=== PATIENT | female | born 2005 | race Caucasian/White ===

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

== ENCOUNTER 2024-03-02 14:45 | Emergency (ER) | payer OTHER, MEDICAID, SELFPAY ==
[2024-03-02 14:50] VITALS: BP 119/69; PULSE 104; RESP 20; TEMP 36.8; O2SAT 100
--- NOTE | 2024-03-02 14:56 | US_ITS ---
WS: [id number] US transvaginal 06340 HISTORY: pain/bleeding; poss preg; r/o torsion vs ectopic COMPARISON: None available. Uterus: 6.0 cm x 3.7 cm x 3.5 cm. Normal size retroverted uterus. No fibroid or mass identified. Endometrium: 0.4 cm. Normal. Right ovary: 3.4 cm x 2.2 cm x 2.3 cm. Normal size and vascularity, no cystic or solid masses. Multip le small follicles. Left ovary: 2.6 cm x 2.2 cm x 1.9 cm. Normal size and vascularity, no cystic or solid masses. Multipl e small follicles. No free fluid in the cul-de-sac. US/US transvaginal 05730 IMPRESSION: 1. No intrauterine gestation. 2. No adnexal mass or significant free fluid in the pelvis. 3. If there is a positive beta hCG ectopic is not excluded. 4. No ovarian torsion.
[2024-03-02 16:26] LABS: Basophils % 0.3 %; Eosinophils # 0.1 10^3/uL (0.0-0.8); Eosinophils % 1.6 %; Hematocrit 37.2 % (36-47); Lymphocytes # 0.9 10^3/uL (1.5-6.5); Mean Corpuscular HGB Conc 33.3 g/dL (30-55); Mean Corpuscular Hemoglobin 26.2 pg (27-33); Mean Corpuscular Volume 78.5 fl (85-98); Mean Platelet Volume 10.5 fL (7.4-10.4); Monocytes # 0.5 10^3/uL (0.2-0.9); Monocytes % 7.5 %; Neutrophils # 4.79 10^3/uL (1.8-8.0); Neutrophils % 76.4 %; Nucleated Red Blood Cells % 0 %; Platelet Count 297 10^3/cmm (157-399); Red Blood Count 4.74 10^6/uL (3.85-5.65); Red Cell Distribution Width 13.6 % (12.1-15.1); White Blood Count 6.27 10^3/uL (4.5-13.0)
[2024-03-02 16:57] LABS: Alanine Aminotransferase 9 U/L (0-33); Albumin Level 4.4 g/dL (3.5-5.2); Alkaline Phosphatase 59 U/L (35-105); Anion Gap 16.3 (5-19); Aspartate Amino Transferase 15 U/L (0-32); Blood Urea Nitrogen 9 mg/dL (6-20); Calcium 8.9 mg/dL (8.5-10.5); Carbon Dioxide 23 mmol/L (22-29); Chloride 106 mmol/L (98-107); Globulin 2.9 g/dL (1.3-4.6); Glomerular Filtration Rate 92.4 mL/min (90-130); Glucose 91 mg/dL (65-115); Osmolality Calculated 290 mOsm/kg (285-295); Potassium 4.3 mmol/L (3.5-5.1); Sodium 141 mmol/L (136-145); Total Bilirubin 0.5 mg/dL (0.15-1.2); Total Protein 7.3 g/dL (6.6-8.7)
[2024-03-02 17:19] VITALS: BP 116/68; PULSE 53; O2SAT 99
--- NOTE | 2024-03-02 17:25 | W.ED.FEMALGU ---
HPI - Female Genitourinary General: Chief complaint: Urogenital-Female Stated complaint: AVD Pain, vaginal bleeding, possible Time Seen by Provider: 03/02/24 16:58 History of Present Illness: Patient says that earlier today she developed severe lower abdominal cramping. She was seen in an urgent care and they told her to come to the emergency room to rule out ovarian torsion and ectopic . She describes diffuse lower abdominal cramping most prominent centrally. She says she started having some bleeding today and she was supposed to start her period tomorrow. She had some nausea but no vomiting. She said the pain was very severe and had doubled her over and was making her cry. She still having some pain. Review of Systems Narrative: Constitutional symptoms: Negative except as documented in HPI. Skin symptoms: Negative except as documented in HPI. Eye symptoms: Negative except as documented in HPI. ENMT symptoms: Negative except as documented in HPI. Respiratory symptoms: Negative except as documented in HPI. Cardiovascular symptoms: Negative except as documented in HPI. Gastrointestinal symptoms: Negative except as documented in HPI. Genitourinary symptoms: Negative except as documented in HPI. Musculoskeletal symptoms: Negative except as documented in HPI. Neurologic symptoms: Negative except as documented in HPI. Psychiatric symptoms: Negative except as documented in HPI. Endocrine symptoms: Negative except as documented in HPI. Physical Exam Narrative: EXAM NARRATIVE: General: Alert, no acute distress. Skin: warm and dry Head: Normocephalic Neck: Trachea midline Eye: Extraocular movements are intact. Ears, nose, mouth and throat: Oral mucosa moist Respiratory: Respirations are non-labored Musculoskeletal: Normal ROM Gastrointestinal: Complains of some diffuse low abdominal pain. Appears nonfocal. Neurological: Alert and oriented, No focal neurological deficit observed. Psychiatric: Cooperative, appropriate mood & affect. Course Vital Signs: Vital signs: Vital Signs Temperature 98.2 F 03/02/24 14:50 Pulse Rate 51 L 03/02/24 18:00 Respiratory Rate 16 03/02/24 17:30 Blood Pressure 116/68 03/02/24 17:19 Pulse Oximetry 98 03/02/24 18:00 Oxygen Delivery Me thod Room Air 03/02/24 18:00 MDM - Female Medical Decision Making Medical decision making: Differential diagnosis including but not limited to and based on the above HPI, review of systems and physical exam: Patient was sent with concern for ovarian torsion and ectopic . test was ordered. Ultrasound was ordered. Basic lab work and urinalysis were ordered. Orders placed to evaluate differential diagnosis based on the above differential, HPI and physical exam Lab Review: Laboratory results were reviewed and interpreted by myself the emergency room physician. Lab work is unremarkable. White count is 6. Hemoglobin is 12. BUN/creatinine are 9 and 0.8. Serum test is negative. Urinalysis is pending at the time of discharge. Ultrasound of the pelvis. Transvaginal. No no intrauterine gestation. No adnexal or significant free fluid in the pelvis. This was reviewed by the radiologist and interpreted by the radiologist. I reviewed the radiology report. I reviewed the patient's medical record. Reexamination: Mom became angry about the amount of time they had spent here. When I went to ask her what was wrong, she said she knew it was just menstrual cramps and she has been here all day and she wants to leave. I discussed that I was waiting for urinalysis. She says she wants to leave and so I am discharging them prior to urinalysis being resulted. Assessment and plan: Dysmenorrhea. - Discharged home - Discussed plan with patient. Answered any questions. - Evaluation and treatment of this problem were appropriate in the emergency setting. Lab Data 03/02/24 16:17 03/02/24 16:17 Radiology Impressions Transvaginal US 03/02/24 14:56 IMPRESSION: 1. No intrauterine gestation. 2. No adnexal mass or significant free fluid in the pelvis. 3. If there is a positive beta hCG ectopic is not excluded. 4. No ovarian torsion. Laboratory Results WBC 6.27 10^3/uL (4.5-13.0) 03/02/24 16:17 RBC 4.74 10^6/uL (3.85-5.65) 03/02/24 16:17 Hgb 12.40 g/dL (12.4-14.8) 03/02/24 16:17 Hct 37.2 % (36-47) 03/02/24 16:17 MCV 78.5 fl (85-98) L 03/02/24 16:17 MCH 26.2 pg (27-33) L 03/02/24 16:17 MCHC 33.3 g/dL (30-55) 03/02/24 16:17 RDW 13.6 % (12.1-15.1) 03/02/24 16:17 Plt Count 297 10^3/cmm (157-399) 03/02/24 16:17 MPV 10.5 fL (7.4-10.4) H 03/02/24 16:17 Neut % (Auto) 76.4 % 03/02/24 16:17 Lymph % (Auto) 14.0 % 03/02/24 16:17 [place] % (Auto) 7.5 % 03/02/24 16:17 Eos % (Auto) 1.6 % 03/02/24 16:17 Baso % (Auto) 0.3 % 03/02/24 16:17 Neut # (Auto) 4.79 10^3/uL (1.8-8.0) 03/02/24 16:17 Lymph # (Auto) 0.9 10^3/uL (1.5-6.5) L 03/02/24 16:17 [place] # (Auto) 0.5 10^3/uL (0.2-0.9) 03/02/24 16:17 Eos # (Auto) 0.1 10^3/uL (0.0-0.8) 03/02/24 16:17 Baso # (Auto) 0.0 10^3/uL (0.0-0.1) 03/02/24 16:17 Nucleated RBC % (auto) 0 % 03/02/24 16:17 Nucleated RBCs # 0.0 /100WBC 03/02/24 16:17 Sodium 141 mmol/L (136-145) 03/02/24 16:17 Potassium 4.3 mmol/L (3.5-5.1) 03/02/24 16:17 Chloride 106 mmol/L (98-107) 03/02/24 16:17 Carbon Dioxide 23 mmol/L (22-29) 03/02/24 16:17 Anion Gap 16.3 (5-19) 03/02/24 16:17 BUN 9 mg/dL (6-20) 03/02/24 16:17 Creatinine 0.8 mg/dL (0.5-0.9) 03/02/24 16:17 GFR Calculation 92.4 mL/min (90-130) 03/02/24 16:17 Glucose 91 mg/dL (65-115) 03/02/24 16:17 Calculated Osmolality 290 mOsm/kg (285-295) 03/02/24 16:17 Calcium 8.9 mg/dL (8.5-10.5) 03/02/24 16:17 Total Bilirubin 0.5 mg/dL (0.15-1.2) 03/02/24 16:17 AST 15 U/L (0-32) 03/02/24 16:17 ALT 9 U/L (0-33) 03/02/24 16:17 Alkaline Phosphatase 59 U/L (35-105) 03/02/24 16:17 Total Protein 7.3 g/dL (6.6-8.7) 03/02/24 16:17 Albumin 4.4 g/dL (3.5-5.2) 03/02/24 16:17 Globulin 2.9 g/dL (1.3-4.6) 03/02/24 16:17 Ser , Semi-Qnt 1.00 mIU/mL 03/02/24 16:17 All radiology interpretation(s) finalized by discharge Discharge Plan Discharge Patient Disposition: Home Clinical Impression: Dysmenorrhea Condition: Stable Prescriptions: New ondansetron 8 mg tablet,disintegrating 8 mg PO .q6 PRN (Reason: nausea and vomiting) Qty: 14 0RF diclofenac sodium 50 mg tablet,delayed release (DR/EC) 50 mg PO Q12H Qty: 20 0RF Discharge Orders: Discharge ED (Routine); Ordered 03/02/24 Ordered By: Soco Cohen Referrals: Kassie Mosher MD [Primary Care Provider] - 4-7 days Discharge Diet: Usual diet Discharge Activity: Increase activity as tolerated Patient Instructions: Dysmenorrhea (ED), Abdominal Pain (ED) Activity Restrictions/Additional Instructions: Thank you for choosing [facility] for your healthcare needs today. Please realize this is an emergency room and that we are providing you with a medical screening exam and this may not be complete and all inclusive of all the testing and or work up that you may need to determine your ailment or severity of your illness. You have been screened and evaluated and felt safe for discharge. Health conditions do change or evolve sometimes and as such it is important that you follow up with your Primary Doctor to be re checked, 3-5 days is a general good time frame for follow up. You are always welcome to return to the ED for re assessment if your symptoms are worsening or you have new concerns Coding Level of Care Code ED Forest And Conservation Worker for Padmini Ortiz
[2024-03-02 17:30] VITALS: PULSE 50; RESP 16; O2SAT 99
[2024-03-02 18:00] VITALS: PULSE 51; O2SAT 98
[2024-03-02 18:33] LABS: Bilirubin Urine 1+ (Negative); Blood Urine 3+ (Negative); Glucose Urine UA Norm (Normal); Ketones Urine 1+ (Negative); Leukocyte Esterase Urine Negative (Negative); Nitrate Urine Negative (Negative); Protein Urine Trace (Negative); Urine Appearance Slightly Cloudy (CLEAR); Urine Color Dark Yellow (Yellow); Urobilinogen Urine 1 mg/dL (Negative); pH Urine 5 (5-7)
[2024-03-02 18:35] LABS: Add Urine Microscopic? YES; Bacteria Urine 1+ /hpf; Mucus Urine TRACE /hpf; Squamous Epithelial Cell Urine 0-4 /hpf (0-5); WBC Urine 0-4 /hpf (0-5)
[2024-03-02 18:36] LABS: Add Urine Culture? Yes; Amorphous Sediment Urine 2+ /hpf
== END 2024-03-02 18:32 | disposition home or self-care (01) ==
PROVIDERS: Physician Assistant; Emergency Provider Emergency Medicine; PCP Specialist
DX: N94.6 Dysmenorrhea, unspecified (principal)
CPT/HCPCS: 36415; 76830; 80053; 81001; 84702; 85025; 87086; 99284

== ENCOUNTER 2025-06-05 11:57 | Emergency (ER) | payer OTHER, MEDICAID, SELFPAY ==
[2025-06-05] VITALS (7 sets, daily range): BP systolic 112–126; BP diastolic 61–81; PULSE 56–80; RESP 19–20; TEMP 36.8; O2SAT 98–100; BMI 22.6
--- OUTSIDE RECORDS SUMMARY | 2025-06-05 12:02 | XMS_ITS | Encounter Summary ---
Author Organization [facility] Address [address] [place] [address] Care Team Providers Care Medical Biller/Coder Name Role Phone Geraldine Linares MD Primary Care Provider Encounter Details Date Type Department Care Team (Latest Contact Info) Description 10/23/2005 Outpatient Historical [facility] Medicine [place] [address] [phone] Shanthi Hi, TERRITORY ACCOUNT EXECUTIVE [address] [place] [phone] ACUTE PHARYNGITIS (Primary Dx) Social History Tobacco Use Types Packs/Day Years Used Date Smoking Tobacco: Never Assessed Comments Unknown Sex and Gender Information Value Date Recorded Sex Assigned at Not on file 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
--- OUTSIDE RECORDS SUMMARY | 2025-06-05 12:02 | XMS_ITS | Encounter Summary ---
Author Organization [facility] Address [address] [place] [address] Care Team Providers Care Crystal Mounter Name Role Phone Geraldine Linares MD Primary Care Provider Encounter Details Date Type Department Care Team (Latest Contact Info) Description 02/06/2006 Outpatient Historical [facility] [address] [place] [address] Shanthi Hi, OPHTHALMIC MEDICAL TECHNICIAN [address] [place] [phone] Superficial Injury NEC (Primary Dx) Social History Tobacco Use Types Packs/Day Years Used Date Smoking Tobacco: Never Assessed Comments Unknown Sex and Gender Information Value Date Recorded Sex Assigned at Not on file 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
--- OUTSIDE RECORDS SUMMARY | 2025-06-05 12:02 | XMS_ITS | Encounter Summary ---
Author Organization [facility] Address [address] [place] [address] Care Team Providers Care Foot Drill Operator Name Role Phone Geraldine Linares MD Primary Care Provider [phone] Encounter Details Date Type Department Care Team (Latest Contact Info) Description 2004 Outpatient Historical 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
--- OUTSIDE RECORDS SUMMARY | 2025-06-05 12:02 | XMS_ITS | Encounter Summary ---
Author Organization [facility] Address [address] [place] [address] Care Team Providers Care Donor Relations Coordinator Name Role Phone Geraldine Linares MD Primary Care Provider [phone] Encounter Details Date Type Department Care Team (Latest Contact Info) Description 2004 Outpatient Historical [facility] Medicine [place] [address] [phone] Arlette Bourne MD [address] [place] [address] ACUTE URI NOS (Primary Dx); TONGUE TIE Social History Tobacco Use Types Packs/Day Years Used Date Smoking Tobacco: Never Assessed Comments Unknown Sex and Gender Information Value Date Recorded Sex Assigned at Not on file Legal Sex Female 3:17 AM PATHOLOGY SECRETARY Gender Identity Not on file Sexual Orientation Not on file documented as of this encounter Plan of Treatment Not on file documented as of this encounter Visit Diagnoses Diagnosis Acute upper respiratory infections of unspecified site- Primary Tongue tie documented in this encounter Care Teams Donor Relations Coordinator Relationship Specialty Start Date End Date Geraldine Linares MD [address] [facility] [address] [place] [phone] PCP - General Family Practice 01/20/14 documented as of this encounter
--- OUTSIDE RECORDS SUMMARY | 2025-06-05 12:02 | XMS_ITS | Encounter Summary ---
Author Organization [facility] Address [address] [place] [address] Care Team Providers Care Building Construction Superintendent Name Role Phone Geraldine Linares MD Primary Care Provider [phone] Encounter Details Date Type Department Care Team (Latest Contact Info) Description 01/22/2007 Outpatient Historical [facility] [address] [place] [address] Shanthi Hi, CASE AIDE [address] [place] [phone] Other General Medical Examination for Administrative Purposes (Primary Dx) Social History Tobacco Use Types Packs/Day Years Used Date Smoking Tobacco: Never Assessed Comments Unknown Sex and Gender Information Value Date Recorded Sex Assigned at Not on file Legal Sex Female 3:17 AM P D DRIVER Gender Identity Not on file Sexual Orientation Not on file documented as of this encounter Plan of Treatment Not on file documented as of this encounter Visit Diagnoses Diagnosis Other general medical examination for administrative purposes- Primary documented in this encounter Care Teams Building Construction Superintendent Relationship Specialty Start Date End Date Geraldine Linares MD [address] [facility] [address] [place] [phone] PCP - General Family Practice 01/20/14 documented as of this encounter
--- OUTSIDE RECORDS SUMMARY | 2025-06-05 12:02 | XMS_ITS | Encounter Summary ---
Author Organization [facility] Address [address] [place] [address] Care Team Providers Care Director Of Enterprise Strategy Name Role Phone Geraldine Linares MD Primary Care Provider Encounter Details Date Type Department Care Team (Latest Contact Info) Description 05/29/2005 Outpatient Historical [facility] Medicine [place] [address] [phone] Shanthi Hi, RISK COMPLIANCE ANALYST [address] [place] [address] OTITIS MEDIA NOS (Primary Dx) Social History Tobacco Use Types Packs/Day Years Used Date Smoking Tobacco: Never Assessed Comments Unknown Sex and Gender Information Value Date Recorded Sex Assigned at Not on file Legal Sex Female 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
--- OUTSIDE RECORDS SUMMARY | 2025-06-05 12:02 | XMS_ITS | Clinical Summary ---
Author Organization [facility] Address [address] [facility] Attn: Epic Prelude ADT ROBERT LOPEZ [address] Care Team Providers Care Maternal Child Nurse Name Role Phone Arnoldo Avery MD Primary Care Provider [phone] Allergies No known active allergies Medications ondansetron (ZOFRAN ODT) 4 mg Tablet, Rapid DissolveIndicat ions:Nausea Take 1 Tablet (4 mg) by mouth every 8 hours as needed for Nausea/Emesi s. Dissolve tablet on top of tongue, then swallow with saliva. 20 Tablet 05/03/20 25 Active ferrous sulfate 325 mg (65 mg iron) tabletIndicatio ns:Iron deficiency anemia, unspecified iron deficiency anemia type Take 1 Tablet (325 mg) by mouth daily. 90 Tablet 1 05/05/20 25 Active FLUoxetine (PROzac) 20 mg capsuleIndicati ons:Moderate episode of recurrent major depressive disorder (CMS/HCC),Anxie ty Take 1 Capsule (20 mg) by mouth daily. 30 Capsule 1 05/19/20 25 Active FLUoxetine (PROzac) 10 mg capsuleIndicati ons:Moderate episode of recurrent major depressive disorder (CMS/HCC),Anxie ty Take 1 Capsule (10 mg) by mouth daily. 30 Capsule 1 05/03/20 25 025 Discontinued Active Problems Problem Noted Date Diagnosed Date Declined influenza vaccine 07/24/2024 Environmental tobacco smoke exposure 08/09/2015 Constipation 05/23/2012 ETD (eustachian tube dysfunction) 12/05/2010 Well child visit Encounters Date Type Department Care Team Description 06/04/2025 Telephone [facility] [address] [place] [address] Arnoldo Avery MD Patient Communication 05/19/2025 3:00 PM CDT Office Visit [address] [place] [address] Meron Jones FNP Iron deficiency anemia, unspecified iron deficiency anemia type (Primary Dx); Moderate episode of recurrent major depressive disorder (CMS/HCC); Anxiety 05/19/2025 11:56 AM CDT - 05/19/2025 11:59 PM CDT Hospital Encounter [facility] [address] [place] [phone] Meron Jones FNP Discharge Disposition: Home or Self Care 05/12/2025 External Device Data STL ABSTRACTION Provider, Abstract 05/11/2025 External Device Data STL ABSTRACTION Provider, Abstract 05/04/2025 Results Follow-Up [address] [place] [address] Meron Jones FNP COMPREHENSIVE METABOLIC PANEL, IRON, TIBC, AND PERCENT SATURATION, CBC WITH DIFFERENTIAL, Additional followed-up results: 7 05/03/2025 3:00 PM CDT Office Visit [address] [place] [phone] Meron Jones FNP Moderate episode of recurrent major depressive disorder (CMS/HCC) (Primary Dx); Anxiety; Screen for STD (sexually transmitted disease); Mood disorder; History of Helicobacter pylori infection; Nausea; Syncope, unspecified syncope type; Abdominal pain, acute, left lower quadrant; Dysfunctional uterine bleeding 04/28/2025 External Device Data STL ABSTRACTION Provider, Abstract 03/30/2025 External Device Data STL ABSTRACTION Provider, Abstract 03/23/2025 External Device Data STL ABSTRACTION Provider, Abstract from Last 3 Months Immunizations Immunization Administration Dates Next Due (ADACEL/BOOSTRIX)(10 YR UP) TDAP VACCINE, 0.5ML, IM 06/25/2017 (GARDASIL 9)(9-45 YRS) HUMAN PAPILLOMAVIRUS VACCINE, TYPES 6, 11, 16, 18, 31, 33, 45, 52, 58, NONAVALENT (9VHPV), 2 OR 3 DOSE, IM 05/06/2019,10/09/2018 (INFANRIX)(6 WKS-6 YRS) DIPT HERIA, TETANUS TOXOIDS, AND ACCELLULAR PERTUSSIS VACCINE (DTAP), 0.5 ML IM 11/22/2009 (M-M-R II/PRIORIX)(12 MO UP) MEASLES, MUMPS AND RUBELLA VIRUS VACCINE, 0.5 ML IM/SUBCUT 11/22/2009 (MENQUADFI)(2 YRS UP) MENING OCOCCAL POLYSACCHARIDE VACCINE A,C,Y,W-135, TT CONJUGATE (PF) 10 MCG/0.5 ML IM SOLUTION 09/21/2022 (MENVEO)(1 VIAL/2 VIAL)(10-5 5 YRS/2 MOS-55 YRS) MENINGOCOCCAL ACYW OLIGOSACCHARIDE CONJUGATE VACCINE, (PF) IM 06/25/2017 (PEDIARIX)(6 WKS-6 YRS) DIPT HERIA, TETANUS TOXOIDS, ACELLULAR PERTUSSIS, HEPATITIS B, AND INACTIVATED POLIOVIRUS VACCINE (RASZ-TDZD-OLT), 0.5ML, IM 06/12/2005,04/04/2005,01/12/2005 (PROQUAD)(12 MOS-12 YRS)EDITH LES, MUMPS, RUBELLA, AND VARICELLA VIRUS VACCINE. 0.5 ML, SUBCUT 06/25/2017,12/06/2005 (RECOMBIVAX HB/ENGERIX-B)(0- 19 YRS) HEPATITIS B VACCINE 5 MCG/0.5 ML OR 10 MCG/0.5 ML PED OR ADOL 3 DOSE (PF), IM 06/25/2017 (VARIVAX)(12 MOS UP)VARICELL A VIRUS VACCINE (PF) 0.5 ML, SUB CUT 11/22/2009 DTaP Hep B IPV Combined Vaccine IM VFC 5,04/04/2005,01/12/2005 DTaP Vaccine < 7 YO IM VFC 05/12/2009 Dt Dtp Dtap Vaccine 04/04/2005,01/12/2005 HIB, Unspecified Formulation 06/12/2005,04/04/20 05,01/12/2005 Hemophilus influenza b vacci ne (Hib), HbOC conjugate (4 dose schedule), for intramuscular use 11/22/2009 Hepatitis B Vaccine 06/25/2017,04/04/2005,2004 Hib PRP-T Vaccine IM 4 Dose VFC 06/12/2005,04/04,01/12/2005 IPV/OPV 04/04/2005,01/12/2005 MMRV Vaccine SQ VFC 12/06/2005 Meningococcal ACWY Vaccine, Unspecified Formulation 06/25/2017 Pneumococcal 7-valent Conjug ate Vaccine IM VFC 12/06/2005,06/12/2005,04/04/2005,12/23 Pneumococcal 7-valent conjug ate vaccine IM 12/06/2005,06/12/2005,04/04/2005,12/23 Poliovirus IPV VFC 05/12/2009 Skin Test TB 12/08/2024 Tdap Vaccine > 7 Yo IM SCHIP 06/25/2017 Family History Medical History Relation Name Comments Healthy Father Gratn Durham Colon Cancer Maternal Grandfather Eduardo Checo Healthy Maternal Grandfather Eduardo Checo High Cholesterol Maternal Grandfather Eduardo Checo Healthy Maternal Grandmother Azalia Nair High Cholesterol Maternal Grandmother Azalia Nair Depression Mother Ankur Bleckley Healthy Mother Ankur Durham Heart Disease Mother Ankur [place] Stroke Mother Ankur Durham Colon Cancer Other ggm Diabetes Paternal Grandfather Jayce Durham Healthy Paternal Grandfather Jayce Durham High Cholesterol Paternal Grandfather Jayce Durham Healthy Paternal Grandmother Lilian Durham High Cholesterol Paternal Grandmother Lilian Durham Anemia Sister Jayna Durham Breast Cancer Neg Hx Relation Name Status Comments Father Grant Durham Alive Maternal Grandfather Eduardo Checo Alive Maternal Grandmother Azalia Nair Alive Mother Ankur Durham Alive Other ggm Paternal Grandfather Jayce Durham Alive Paternal Grandmother Lilian Durham Alive Sister Jayna Durham Alive Social History Tobacco Use Types Packs/Day Years Used Date Smoking Tobacco: Never Passive Smoke Exposure: Never Smokeless Tobacco: Never Tobacco Cessation:Counseling Given: Yes Alcohol Use Standard Drinks/Week Comments Never 0 (1 standard drink = 0.6 oz pur e alcohol) Feeling Safe Answer Date Recorded Are you in a relationship wi th someone who hurts you emotionally and/or physically? 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 Gender Identity Female 06/04/2025 11:50 AM CDT Sexual Orientation Not on file Last Filed Vital Signs Vital Sign Reading Time Taken Comments Blood Pressure 102/60 05/19/2025 3:05 PM CDT Pulse 70 05/19/2025 3:05 PM CDT Temperature 36.6 C (97.9 F) 05/19/2025 3:05 PM CDT Respiratory Rate 18 05/19/2025 3:05 PM CDT Oxygen Saturation 100% 05/19/2025 3:05 PM CDT Inhaled Oxygen Concentration - - Weight 66.7 kg (147 lb) 05/19/2025 3:05 PM CDT Height 167.6 cm (5' 6 ) 05/19/2025 3:05 PM CDT Body Mass Index 23.73 05/19/2025 3:05 PM CDT Plan of Treatment Upcoming Encounters Date Type Department Care Team (Late st Contact Info) Description 06/09/2025 2:40 PM CDT Office Visit [address] [place] [phone] Meron Jones FNP [address] [place] [address] 11/19/2025 3:40 PM 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 Office Visit [address] [place] [phone] Meron Jones FNP [address] [place] [phone] 05/03/2026 3:00 PM CDT Office Visit [address] [place] [phone] Meron Jones FNP [address] [place] [address] Health Maintenance Due Date Last Done Comments INFLUENZA VACCINE (#1) 2025 CHLAMYDIA SCREENING (ANNUAL) 11-24 YEARS 05/03/2026 05/03/2025, 10/12/2024, 05/15/2022 DTAP/TDAP/TD VACCINES (8 - T d or Tdap) 06/25/2027 06/25/2017, 06/25/2017, 11/22/2009, Additional history exists HEPATITIS B VACCINES Completed 06/25/2017, 06/25/2017, 06/12/2005, Additional history exists HPV VACCINES Completed 05/06/2019, 10/09/2018 Procedures Procedure Name Priority Date/Time Associated Diagnosis Comments US PELVIC TRANSVAGINAL Routine 05/19/2025 1:09 PM CDT Abdominal pain, acute, left lower quadrant Dysfunctional uterine bleeding HELICOBACTER PYLORI ANTIGEN, STOOL Routine 05/11/2025 4:04 PM CDT History of Helicobacter pylori infection HIV DETECTION W/REFLX CONFIRMATION Routine 05/03/2025 3:25 PM CDT Screen for STD (sexually transmitted disease) SYPHILIS SEROLOGY W/REFLEX Routine 05/03/2025 3:25 PM CDT Screen for STD (sexually transmitted disease) TSH Routine 05/03/2025 3:25 PM CDT Mood disorder CBC WITH DIFFERENTIAL Stat 05/03/2025 3:25 PM CDT Syncope, unspecified syncope type IRON, TIBC, AND PERCENT SATURATION Routine 05/03/2025 3:25 PM CDT Syncope, unspecified syncope type COMPREHENSIVE METABOLIC PANEL Routine 05/03/2025 3:25 PM CDT Syncope, unspecified syncope type HSV TYPE 1 AND 2 IGG ANTIBODY Routine 05/03/2025 3:25 PM CDT Screen for STD (sexually transmitted disease) VAGINOSIS/VAGINITIS PANEL PLUS Routine 05/03/2025 3:25 PM CDT Screen for STD (sexually transmitted disease) from Last 3 Months Results * US PELVIC TRANSVAGINAL (05/19/2025 1:09 PM CDT) Anatomical Region Laterality Modality Pelvis Ultrasound 05/19/2025 1:09 PM CDT Impressions 05/19/2025 11:21 PM CDT IMPRESSION: Please see below. Exam: US PELVIC TRANSVAGINAL Date/Time of Exam: 05/19/2025 1:09 PM Reason For Exam: See Diagnosis. Diagnosis: Abdominal pain, acute, left lower quadrant; Dysfunctional uterine bleeding. Comparison: None Findings: The uterus is 8.5 x 5.4 x 5.4 cm. No uterine mass. The endometrium is 5.3 mm. Small amount of free fluid in the cul-de-sac. Right ovary is 3.6 x 2.1 x 2.7 cm and demonstrates several peripheral follicles. The left ovary is 3.35 x 1.6 x 3.0 cm and contains several peripheral follicles and a complex predominantly cystic lesion measuring 2.5 x 1.4 x 2.6 cm. IMPRESSION:. 1. Complex septated cystic left ovarian lesion measuring 2.5 x 1.4 x 2.6 cm. 2. Bilateral peripheral ovarian follicles raising the possibility of polycystic ovarian syndrome. Narrative Procedure Note Lobito Rios MD - 05/19/2025 IMPRESSION: Please see below. Exam: US PELVIC TRANSVAGINAL Date/Time of Exam: 05/19/2025 1:09 PM Reason For Exam: See Diagnosis. Diagnosis: Abdominal pain, acute, left lower quadrant; Dysfunctional uterine bleeding. Comparison: None Findings: The uterus is 8.5 x 5.4 x 5.4 cm. No uterine mass. The endometrium is 5.3 mm. Small amount of free fluid in the cul-de-sac. Right ovary is 3.6 x 2.1 x 2.7 cm and demonstrates several peripheral follicles. The left ovary is 3.35 x 1.6 x 3.0 cm and contains several peripheral follicles and a complex predominantly cystic lesion measuring 2.5 x 1.4 x 2.6 cm. IMPRESSION:. 1. Complex septated cystic left ovarian lesion measuring 2.5 x 1.4 x 2.6 cm. 2. Bilateral peripheral ovarian follicles raising the possibility of polycystic ovarian syndrome. Result [facility] Meron Jones [facility] US ORDERABLES Final Re sult * HELICOBACTER PYLORI ANTIGEN, STOOL (05/11/2025 4:04 PM CDT) H. PYLORI AG, STOOL SEE NOTE [facility] [place] Comment: HELICOBACTER PYLORI AG, EIA, STOOL Micro Number: [id number] Test Status: Final Specimen Source: Stool Specimen Quality: Adequate H.pylori Ag: Not Detected Antimicrobials, proton pump inhibitors, and bismuth preparations inhibit H. pylori and ingestion up to two weeks prior to testing may cause false negative results. If clinically indicated the test should be repeated on a new specimen obtained two weeks after discontinuing treatment. Reference Range: Not Detected FASTING:UNKNOWN FASTING: UNKNOWN Test Performed at: [facility] [place] [address] [place] [address] [facility] Stool STOOL SPECIMEN / Unknown 05/11/2025 4:04 PM CDT 05/12/2025 3:10 AM CDT Result [facility] Meron Jones [facility] BODY FLUIDS AND STOOLS F inal Result [facility] [phone] [facility] [place] [address] [place] [address] * VAGINOSIS/VAGINITIS PANEL PLUS (05/03/2025 3:25 PM CDT) BACTERIAL VAGINOSIS NEGATIVE NEGATIVE [facility] LAURA SPECIES NOT DETECTED NOT DETECTED [facility] [place] LAURA GLABRATA NOT DETECTED NOT DETECTED [facility] Comment: Laura species C. albicans, C. tropicalis, C. parapsilosis, and/or C. dubliniensis can be detected, but not differentiated, in the Laura spp. result. TRICHOMONAS VAGINALIS (TV), TMA NOT DETECTED NOT DETECTED [facility] CHLAMYDIA TRACHOMATIS RNA, TMA, UROGENITAL NOT DETECTED NOT DETECTED [facility] NEISSERIA GONORRHOEAE RNA, TMA, UROGENITAL NOT DETECTED NOT DETECTED [facility] Comment: For additional information, please refer to https://education.[employer]/faq/KXE890 (This link is being provided for information/ educational purposes only.) Test Performed at: [facility] [place] [address] [place] [address] Janki Sanches MD Genital SPECIMEN FROM VAGINA / Unknown 05/03/2025 3:25 PM CDT 05/04/2025 3:55 AM CDT Meron ABDALLA MICROBIOLOGY - GENERAL O RDERABLES Final Result Performing Organization Address City/[facility]/ZIP Co de Phone Number [facility] [phone] [facility] [address] [facility] [place] [address] * SYPHILIS SEROLOGY W/REFLEX (05/03/2025 3:25 PM CDT) T PALLIDUM ANTIBODIES NEGATIVE NEGATIVE [facility] Comment: No antibodies to T. pallidum (the agent causing syphilis) were detected in the specimen. This result, however, does not exclude very recent T. pallidum infection; testing of a second specimen, collected 2-4 weeks after this specimen, is recommended if the index of suspicion for recent infection is high. Test Performed at: [facility] [address] [place] [address] Ceasar Rodriguez Blood 05/03/2025 3:25 PM CDT 05/04/2025 4:04 AM CDT Meron ABDALLA CHEMISTRY ORDERABLES Fin al Result [facility] [phone] [facility] [address] [place] [address] * HIV DETECTION W/REFLX CONFIRMATION (05/03/2025 3:25 PM CDT) QUEST RESULT [facility] Comment: Quest component Name and Code: HIV FINAL INTERPRETATION [[id number]] HIV Negative HIV-1 antigen and HIV-1/HIV-2 antibodies were not detected. There is no laboratory evidence of HIV infection. HIV-1/2 AG AND AB SCREEN NON-REACT JOSE NON-REACT JOSE [facility] Comment: Test Performed at: [facility] [address] [place] [phone] Janki Sanches MD Blood 05/03/2025 3:25 PM CDT 05/04/2025 4:04 [address] Meron Jones [facility] CHEMISTRY ORDERABLES Fin al Result [facility] [phone] [facility] [address] * HSV TYPE 1 AND 2 IGG ANTIBODY (05/03/2025 3:25 PM CDT) Pathologist [facility] HSV1 IGG <0.90 index [facility] HSV2 IGG <0.90 index [facility] Comment: Index Interpretation ----- <0.90 Negative 0.90-1.09 Equivocal >1.09 Positive This assay utilizes recombinant type-specific antigens to differentiate HSV-1 from HSV-2 infections. A positive result cannot distinguish between recent and past infection. If recent HSV infection is suspected but the results are negative or equivocal, the assay should be repeated in 4-6 weeks. The performance characteristics of the assay have not been established for pediatric populations, immunocompromised patients, or screening. For additional information, please refer to http://education.[employer]/faq/WZF319 (This link is being provided for informational/ educational purposes only.) Test Performed at: [facility] [address] [place] [address] [place] [address] aJnki Sanches MD Blood 05/03/2025 3:25 PM CDT 05/04/2025 4:[address] Meron Jones [facility] CHEMISTRY ORDERABLES Fin al Result Performing Organization Address City/[facility]/ZIP Co de Phone Number [facility] [phone] [facility] [address] [place] [address] * (ABNORMAL) IRON, TIBC, AND PERCENT SATURATION (05/03/2025 3:25 PM CDT) Pathologist [facility] IRON 33(L) 40 - 190 mcg/dL [facility] TIBC 365 250 - 450 mcg/dL (calc) [facility] IRON % SATURATION 9(L) 16 - 45 % (calc) [facility] Comment: Test Performed at: [facility] [address] [place] [address] Janki Sanches MD Blood 05/03/2025 3:25 PM CDT 05/04/2025 4:[address] [facility] CHEMISTRY ORDERABLES Fin al Result Performing Organization Address City/[facility]/ZIP Co de Phone Number [facility] [phone] [facility] [address] [place] [address] * (ABNORMAL) CBC WITH DIFFERENTIAL (05/03/2025 3:25 PM CDT) WBC 5.2 3.8 - 10.8 Thousand/u L [facility] RBC 4.93 3.80 - 5.10 Million/uL [facility] HEMOGLOBIN 12.8 11.7 - 15.5 g/dL [facility] HEMATOCRIT 40.5 35.0 - 45.0 % [facility] MCV 82.2 80.0 - 100.0 fL [facility] MCH 26.0(L) 27.0 - 33.0 pg [facility] MCHC 31.6(L) 32.0 - 36.0 g/dL [facility] Comment: For adults, a slight decrease in the calculated MCHC value (in the range of 30 to 32 g/dL) is most likely not clinically significant; however, it should be interpreted with caution in correlation with other red cell parameters and the patient's clinical condition. RDW 14.4 11.0 - 15.0 % [facility] PLATELETS 280 140 - 400 Thousand/u L [facility] MPV 11.7 7.5 - 12.5 fL [facility] NEUTROPHIL ABSOLUTE 3,650 1,500 - 7,800 cells/uL [facility] LYMPHOCYTE ABSOLUTE 1,118 850 - 3,900 cells/uL [facility] MONOCYTE ABSOLUTE 328 200 - 950 cells/uL [facility] EOSINOPHIL ABSOLUTE 62 15 - 500 cells/uL [facility] BASOPHILS ABSOLUTE 42 0 - 200 cells/uL [facility] NEUTROPHIL 70.2 % [facility] LYMPHOCYTES 21.5 % [facility] MONOCYTE 6.3 % [facility] EOSINOPHILS 1.2 % [facility] BASOPHILS 0.8 % [facility] Comment: Test Performed at: [facility] [address] [place] [phone] Janki Sanches MD Blood 05/03/2025 3:25 PM CDT 05/04/2025 4:04 AM CDT us Meron Jones [facility]IR[facility] [employer]ARM[employer] HEMATOLOGY ORDERABLES Fi nal Result [facility] [phone] [facility] [address] * TSH (05/03/2025 3:25 PM CDT) TSH 2.51 mIU/L [facility] Comment: Reference Range > or = 20 Years 0.40-4.50 Ranges First trimester 0.26-2.66 Second trimester 0.55-2.73 Third trimester 0.43-2.91 Test Performed at: [facility] [place] [address] [facility] [place] [address] Janki Sanches MD Blood 05/03/2025 3:25 PM CDT 05/04/2025 4:04 AM CDT Meron Jones DAIRY FARMER CHEMISTRY ORDERABLES Fin al Result [facility] [phone] [facility] [address] [facility] [place] [address] * (ABNORMAL) COMPREHENSIVE METABOLIC PANEL (05/03/2025 3:25 PM CDT) GLUCOSE 89 65 - 99 mg/dL [facility] Comment: Fasting reference interval BUN 6(L) 7 - 25 mg/dL [facility] CREATININE 0.76 0.50 - 0.96 mg/dL [facility] GFR 115 > OR = 60 mL/min/1.7 3m2 [facility] BUN/CREAT RATIO 8 6 - 22 (calc) [facility] SODIUM 137 135 - 146 mmol/L [facility] POTASSIUM 3.7 3.5 - 5.3 mmol/L [facility] CHLORIDE 104 98 - 110 mmol/L [facility] CO2 25 20 - 32 mmol/L [facility] CALCIUM 9.4 8.6 - 10.2 mg/dL [facility] TOTAL PROTEIN 7.4 6.1 - 8.1 g/dL [facility] ALBUMIN 4.9 3.6 - 5.1 g/dL [facility] GLOBULIN 2.5 1.9 - 3.7 g/dL (calc) [facility] ALBUMIN/GLOBULIN RATIO 2.0 1.0 - 2.5 (calc) [facility] BILIRUBIN TOTAL 0.6 0.2 - 1.2 mg/dL [facility] ALKALINE PHOSPHATASE 39 31 - 125 U/L [facility] AST 14 10 - 30 U/L [facility] ALT 9 6 - 29 U/L [facility] Comment: Test Performed at: [facility] [address] [address] Janki Sanches MD Blood 05/03/2025 3:25 PM CDT 05/04/2025 4:04 AM CDT Meron Jones DA[employer] FARM[employer] CHEMISTRY ORDERABLES Fin al Result [facility] [phone] [facility] [address] [address] [phone] from Last [address] [place] [address] [place] [address] [facility] [id number] [facility] [address] [place] [facility] [address] Care Teams Maternal Child Nurse Relationship Specialty Start Date End Date Arnoldo Avery MD [address] [phone] PCP - General Family Practice 04/05/23
--- OUTSIDE RECORDS SUMMARY | 2025-06-05 12:02 | XMS_ITS | Encounter Summary ---
Author Organization [facility] Address [address] [place] [address] Care Team Providers Care Electronic Maintenance Supervisor Name Role Phone Geraldine Linares MD Primary Care Provider Encounter Details Date Type Department Care Team (Latest Contact Info) Description 2004 Outpatient Historical [facility] Medicine [employer] [address] [phone] Arlette Bourne MD [address] [place] [address] Routine child health exam (Primary Dx); TONGUE TIE Social History Tobacco Use Types Packs/Day Years Used Date Smoking Tobacco: Never Assessed Comments Unknown Sex and Gender Information Value Date Recorded Sex Assigned at Not on file 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
--- OUTSIDE RECORDS SUMMARY | 2025-06-05 12:02 | XMS_ITS | Encounter Summary ---
Author Organization [facility] Address [address] [place] [address] Care Team Providers Care Trust Evaluation Supervisor Name Role Phone Geraldine Linares MD Primary Care Provider Encounter Details Date Type Department Care Team (Latest Contact Info) Description 11/07/2006 Outpatient Historical [facility] Medicine [place] [address] [phone] Shanthi Hi, HEAD OF MAINTENANCE [address] [place] [phone] Other Conjunctivitis (Primary Dx) Social History Tobacco Use Types Packs/Day Years Used Date Smoking Tobacco: Never Assessed Comments Unknown Sex and Gender Information Value Date Recorded Sex Assigned at Not on file 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
--- OUTSIDE RECORDS SUMMARY | 2025-06-05 12:02 | XMS_ITS | Encounter Summary ---
Author Organization [facility] Address [address] [place] [address] Care Team Providers Care Hardware Sales Assistant Name Role Phone Arnoldo Avery MD Primary Care Provider [phone] Encounter Details Date Type Department Care Team (Late st Contact Info) Description 10/14/2024 Results Follow-Up [facility] Emergency Medicine [address] [address] Miesha Wilkins, RN GC/CHLAMYDIA, UROGENITAL Social History Tobacco Use Types Packs/Day Years Used Date Smoking Tobacco: Never Passive Smoke Exposure: Never Smokeless Tobacco: Never Alcohol Use Standard Drinks/Week Comments Never 0 (1 standard drink = 0.6 oz pur e alcohol) Feeling Safe Answer Date Recorded Are you in a relationship wi th someone who hurts you emotionally and/or physically? 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 Gender Identity Female 06/04/2025 11:50 AM CDT Sexual Orientation Not on file documented as of this encounter Plan of Treatment Upcoming Encounters Date Type Department Care Team (Late Contact Info) Description 06/09/2025 2:40 PM CDT Office Visit [facility] [place] [address] [address] Meron Jones, [facility] [address] [address] 11/19/2025 3:40 PM SUPERVISOR FUR DRESSING Office Visit [facility] [address] [place] [address] Meron Jones, [facility] [address] [place] [address] 05/03/2026 3:00 PM CDT Office Visit [facility] [address] [place] [address] Meron Jones, [facility] [address] [place] [address] documented as of this encounter Visit Diagnoses Not on filedocumented in this encounter Additional Health Concerns Assessment Noted Time PHQ-9 Depression Total Score: 1 10/13/19 25 1:49 PM SUPERVISOR FUR DRESSING documented as of this encounter Care Teams Hardware Sales Assistant Relationship Specialty Start Date End Date Arnoldo Avery MD [address] [place] [address] PCP - General Family Practice 04/05/23 documented as of this encounter
--- OUTSIDE RECORDS SUMMARY | 2025-06-05 12:02 | XMS_ITS | Encounter Summary ---
Author Organization [facility] Address [address] [place] [address] Care Team Providers Care Motor Vehicle Representative Name Role Phone Geraldine Linares MD Primary Care Provider Encounter Details Date Type Department Care Team (Latest Contact Info) Description 04/10/2006 Outpatient [facility] [address] [place] [address] Shanthi Hi, CAREER DEVELOPMENT COUNSELOR [address] [place] [phone] Acute Upper Respiratory Infections of Unspecified Site (Primary Dx) Social History Tobacco Use Types Packs/Day Years Used Date Smoking Tobacco: Never Assessed Comments Unknown Sex and Gender Information Value Date Recorded Sex Assigned at Not on file Legal Sex Female 3:17 AM TIMBER 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
--- OUTSIDE RECORDS SUMMARY | 2025-06-05 12:02 | XMS_ITS | Clinical Summary ---
Author Organization [facility] Address [address] [place] [address] Care Team Providers Care Systems Technologist Name Role Phone Geraldine Linares MD Primary Care Provider Allergies No known active allergies Medications Polycarbophil Calcium (FIBER) Oral Chew Take by mouth. Active Active Problems Problem Noted Date Diagnosed Date Environmental tobacco smoke exposure 08/09/2015 Constipation 05/23/2012 ETD (eustachian tube dysfunction) 12/05/2010 Well child visit Immunizations Immunization Administration Dates Next Due (INFANRIX)(6 WKS-6 YRS) DIPT HERIA, TETANUS TOXOIDS, AND ACCELLULAR PERTUSSIS VACCINE (DTAP), 0.5 ML IM 11/22/2009 (M-M-R II/PRIORIX)(12 MO UP) MEASLES, MUMPS AND RUBELLA VIRUS VACCINE, 0.5 ML IM/SUBCUT 11/22/2009 (VARIVAX)(12 MOS UP)VARICELL A VIRUS VACCINE (PF) 0.5 ML, SUB CUT 11/22/2009 DTaP Vaccine < 7 YO IM VFC 05/12/2009 Dt Dtp Dtap Vaccine 04/04/2005,01/12/2005 HIB, Unspecified Formulation 04/04/2005,01/13/20 05 Hemophilus influenza b vacci ne (Hib), HbOC conjugate (4 dose schedule), for intramuscular use 11/22/2009 Hepatitis B Vaccine 04/04/2005,01/12/2005 IPV/OPV 04/04/2005,01/12/2005 Pneumococcal 7-valent conjugate vaccine IM 04/04,01/12/2005 Poliovirus IPV VFC 05/12/2009 Family History Medical History Relation Name Comments Healthy Father Healthy Maternal Grandfather Healthy Maternal Grandmother Healthy Mother Colon Cancer Other ggm Healthy Paternal Grandfather Healthy Paternal Grandmother Breast Cancer Neg Hx Relation Name Status Comments Father Alive Maternal Grandfather Alive Maternal Grandmother Alive Mother Alive Other ggm Paternal Grandfather Alive Paternal Grandmother Alive Social History Tobacco Use Types Packs/Day Years Used Date Smoking Tobacco: Never Assessed Comments Unknown Sex and Gender Information Value Date Recorded Sex Assigned at Not on file Legal Sex Female 3:17 AM ENGINEERING TECHNICAL ANALYST Gender Identity Not on file Sexual Orientation Not on file Occupation Industry Job Start Date Job End Date Not on file Not on file Not on file Not on file Last Filed Vital Signs Vital Sign Reading Time Taken Comments Blood Pressure 98/54 08/09/2015 3:15 PM ENGINEERING TECHNICAL ANALYST Pulse 84 08/09/2015 3:15 PM ENGINEERING TECHNICAL ANALYST Temperature 37.1 C (98.7 F) 08/09/2015 3:15 PM ENGINEERING TECHNICAL ANALYST Respiratory Rate 16 08/09/2015 3:15 PM ENGINEERING TECHNICAL ANALYST Oxygen Saturation 99% 08/09/2015 3:15 PM ENGINEERING TECHNICAL ANALYST Inhaled Oxygen Concentration - - Weight 44.5 kg (98 lb) 08/09/2015 3:15 PM ENGINEERING TECHNICAL ANALYST Height 147.3 cm (4' 10 ) 08/09/2015 3:15 PM ENGINEERING TECHNICAL ANALYST Body Mass Index 20.48 08/09/2015 3:15 PM ENGINEERING TECHNICAL ANALYST Plan of Treatment Health Maintenance Due Date Last Done Comments HEPATITIS B VACCINES (3 of 3 - 3-dose series) 05/30/2005 04/04/2005, 01/12/2005 CHLAMYDIA SCREENING (ANNUAL) 11-24 YEARS 2015 DTAP/TDAP/TD VACCINES (5 - Tdap) 2015 11/22/2009, 05/12/2009, 04/04/2005, Additional history exists HPV VACCINES (1 - 3-dose series) 2019 Preventative Visit-Managed Medicaid 2023 11/22/2009, 2004 INFLUENZA VACCINE (#1) 2025 Insurance MEDICAID [place] Care Teams Systems Technologist Relationship Specialty Start Date End Date Geraldine Linares MD [employer] [address] [phone] PCP - General Family Practice 01/20/14
--- OUTSIDE RECORDS SUMMARY | 2025-06-05 12:02 | XMS_ITS | Encounter Summary ---
Author Organization [facility] Address [address] [place] [address] Care Team Providers Care Health Promotion Educator Name Role Phone Geraldine Linares MD Primary Care Provider [phone] Encounter Details Date Type Department Care Team (Latest Contact Info) Description 09/18/2005 Outpatient Historical [facility]- [place] [address] [place] [address] Sierra Baxter NP NO ADDRESS ON FILE ACUTE SINUSITIS NOS (Primary Dx); ACUTE PHARYNGITIS; OTITIS MEDIA NOS Social History Tobacco Use Types Packs/Day Years Used Date Smoking Tobacco: Never Assessed Comments Unknown Sex and Gender Information Value Date Recorded Sex Assigned at Not on file Legal Sex Female 3:17 AM 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
--- OUTSIDE RECORDS SUMMARY | 2025-06-05 12:02 | XMS_ITS | Encounter Summary ---
Author Organization [facility] Address [address] [place] [address] Care Team Providers Care Sewage Reticulation Drafting Officer Name Role Phone Arnoldo Avery MD Primary Care Provider [phone] Reason for Visit * Reason Onset Date Comments Patient Communication 06/04/2025 Encounter Details Date Type Department Care Team (Late st Contact Info) Description 06/04/2025 Telephone [facility] Family Medicine [place] [address] [address] Arnoldo Avery MD [address] [address] Patient Communication Social History Tobacco Use Types Packs/Day Years [...] AM CDT Legal Sex Female 12:05 PM RETURNING OFFICER Gender Identity Female 06/04/2025 11:50 AM CDT Sexual Orientation Not on file documented as of this encounter Miscellaneous Notes * Telephone Encounter - Maria Fernanda Jiang - 06/04/2025 3:17 PM CDT Called and Advised patient of our walk in clinic and hours, incase she wanted to try to get in today before the weekendJonovero Jiang, 06/04/2025 3:17 PM documented in this encounter Plan of Treatment Upcoming Encounters Date Type Department Care Team (Late st Contact Info) Description 06/09/2025 2:40 PM CDT Office Visit [facility] [address] [place] [address] Meron Jones, [facility] [address] [place] [address] 11/19/2025 3:40 PM RETURNING OFFICER Office [facility] [address] [place] [address] Meron Jones [facility] [address] [place] [address] 05/03/2026 3:00 PM CDT Office Visit [facility] [address] [place] [address] Meron Jones, [facility] [address] [place] [address] documented as of this encounter Visit Diagnoses Not on filedocumented in this encounter Additional Health Concerns Assessment Noted Time PHQ-9 Depression Total Score: 1 10/13/19 25 1:49 PM RETURNING OFFICER documented as of this encounter Care Teams Sewage Reticulation Drafting Officer Relationship Specialty Start Date End Date Arnoldo Avery MD [address] [place] [address] PCP - General Family Practice 04/05/23 documented as of this encounter
--- OUTSIDE RECORDS SUMMARY | 2025-06-05 12:02 | XMS_ITS | Encounter Summary ---
Author Organization [facility] Address [address] [place] [address] Care Team Providers Care Field Crop Farm Worker Name Role Phone Geraldine Linares MD Primary Care Provider Encounter Details Date Type Department Care Team (Latest Contact Info) Description 2004 Outpatient Historical [facility] [place] [address] [address] Arlette Bourne MD [address] [place] [phone] Routine child health exam (Primary Dx) Social History Tobacco Use Types Packs/Day Years Used Date Smoking Tobacco: Never Assessed Comments Unknown Sex and Gender Information Value Date Recorded Sex Assigned at Not on file Legal Sex Female 3:17 AM SHOES HAND SEWER Gender Identity Not on file Sexual Orientation Not on file documented as of this encounter Plan of Treatment Not on file documented as of this encounter Visit Diagnoses Diagnosis Routine child health exam- Primary Routine infant or child health check documented in this encounter Care Teams Field Crop Farm Worker Relationship Specialty Start Date End Date Geraldine Linares MD [address] [facility] [address] [place] [address] PCP - General Family Practice 01/20/14 documented as of this encounter
--- OUTSIDE RECORDS SUMMARY | 2025-06-05 12:02 | XMS_ITS | Encounter Summary ---
Author Organization [facility] Address [address] [place] [address] Care Team Providers Care Tanker Driver Name Role Phone Geraldine Linares MD Primary Care Provider Encounter Details Date Type Department Care Team (Late st Contact Info) Description 11/24/2007 Outpatient Historical [address] [address] Shanthi Hi FNP [address] [place] [address] Social History Tobacco Use Types Packs/Day Years Used Date Smoking Tobacco: Never Assessed Comments Unknown Sex and Gender Information Value Date Recorded Sex Assigned at Not on file Legal Sex Female 3:17 AM SAP TRAINER Gender Identity Not on file Sexual Orientation Not on file documented as of this encounter Progress Notes * Shanthi Hi FNP - 11/24/2007 12:00 AM CST Patient Name: Jackie Durham DOS: 11/24/2007 : 2004 VITALS: Weight: 34.0 pounds. Pulse: 0. Not dictated. BP: 0/0. Not dictated. Temperature 101.6. CHIEF COMPLAINT: Elevated temperature, started Saturday, slight cough. Been given Tylenol and Tussin without a lot of relief PHYSICAL EXAMINATION: A 2-year-old white female child alert and active in no acute distress. SKIN: Warm, dry. Color flushed. HEENT: Ears; TMs are dull. Nose; yellow-green mucoid drainage noted in the nasal passages. Throat; slight erythema of the post pharynx. NECK: Supple. LUNGS: Coarse breath sounds over the bronchial area. HEART: S1, S2 clear. Regular rate and rhythm. No murmur noted. ABDOMEN: Soft and round. Bowel sounds are present x4 quadrants. No tenderness in the lower back is noted. ASSESSMENT: Upper respiratory infection. PLAN: The patient was provided teaching on upper respiratory. Will increase fluids. Placed on Zithromax 200 per teaspoon, 1 teaspoon then 1/2 teaspoon for four days. Strep screen is negative. The patient was sent to the hospital for chest x-ray to be sent for an over read by the radiologist. CBC, influenza, micro were all negative. The patient will return to our care in one week or before as needed. SAULO Villarreal [facility] Electronically Signed by SAULO Villarreal 12/02/2007 16:52 , tony Montiel Document #: [id number] cc: documented in this encounter Plan of Treatment Not on file documented as of this encounter Procedures Procedure Name Priority Date/Time Associated Diagnosis Comments POC RAPID STREP A ANTIGEN Stat 11/24/2007 2:30 PM SAP TRAINER documented in this encounter Results * POC RAPID STREP A (11/24/2007 2:30 PM SAP TRAINER) RAPID STREP NEGATIVE NEG [facility] PERFORMED IN OFFICE 11/24/2007 2:30 PM SAP TRAINER 11/24/2007 2:35 PM SAP TRAINER us German Ramos DO POINT OF CARE TESTING Final Res ult [facility] PERFORMED IN OFFICE documented in this encounter Visit Diagnoses Not on filedocumented in this encounter Care Teams Tanker Driver Relationship Specialty Start Date End Date Geraldine Linares MD [address] [phone] PCP - General Family Practice 01/20/14 documented as of this encounter
--- OUTSIDE RECORDS SUMMARY | 2025-06-05 12:02 | XMS_ITS | Encounter Summary ---
Author Organization [facility] Address [address] [place] [address] Care Team Providers Care Continuous Improvement Coach Name Role Phone Geraldine Linares MD Primary Care Provider Encounter Details Date Type Department Care Team (Latest Contact Info) Description 08/12/2006 Outpatient Historical [facility] [address] [place] [address] Shanthi Hi, KENNEL ATTENDANT [address] [place] [address] Acute Pharyngitis (Primary Dx); Unspecified Otitis Media Social History Tobacco Use Types Packs/Day Years Used Date Smoking Tobacco: Never Assessed Comments Unknown Sex and Gender Information Value Date Recorded Sex Assigned at Not on file Legal Sex Female 3:17 AM PERSONAL DEVELOPMENT COACH Gender Identity Not on file Sexual Orientation Not on file documented as of this encounter Plan of Treatment Not on file documented as of this encounter Visit Diagnoses Diagnosis Acute pharyngitis- Primary Unspecified otitis media documented in this encounter Care Teams Continuous Improvement Coach Relationship Specialty Start Date End Date Geraldine Linares MD [address] [facility] [address] [place] [address] PCP - General Family Practice 01/20/14 documented as of this encounter
--- OUTSIDE RECORDS SUMMARY | 2025-06-05 12:02 | XMS_ITS | Encounter Summary ---
Author Organization [facility] Address [address] [place] [address] Care Team Providers Care Steam Cleaner Name Role Phone Geraldine Linares MD Primary Care Provider Encounter Details Date Type Department Care Team (Latest Contact Info) Description 06/12/2006 Outpatient [facility] [address] [place] [address] Shanthi Hi, OPERATIONS RESEARCH SCIENTIST [address] [place] [phone] Acute Pharyngitis (Primary Dx) Social History Tobacco Use Types Packs/Day Years Used Date Smoking Tobacco: Never Assessed Comments Unknown Sex and Gender Information Value Date Recorded Sex Assigned at Not on file Legal Sex Female 3:17 AM FREIGHT AIR BRAKE FITTER Gender Identity Not on file Sexual Orientation Not on file documented as of this encounter Plan of Treatment Not on file documented as of this encounter Visit Diagnoses Diagnosis Acute pharyngitis- Primary documented in this encounter Care Teams Steam Cleaner Relationship Specialty Start Date End Date Geraldine Linares MD [address] [facility] [address] [place] [address] PCP - General Family Practice 01/20/14 documented as of this encounter
--- OUTSIDE RECORDS SUMMARY | 2025-06-05 12:02 | XMS_ITS | Encounter Summary ---
Author Organization [facility] Address [address] [place] [address] Care Team Providers Care Carton Making Machinist Name Role Phone Arnoldo Avery MD Primary Care Provider [phone] Encounter Details Date Type Department Care Team (Late Contact Info) Description 04/05/2023 Lab Requisition [facility] Laboratory Services [place] [address] [address] Meron Jones, [facility] [address] [place] [address] Encounter for test, result positive Social History Tobacco Use Types Packs/Day Years Used Date Smoking Tobacco: Never Passive Smoke Exposure: Never Alcohol Use Standard Drinks/Week Comments Never 0 (1 standard drink = 0.6 oz pur e alcohol) Feeling Safe Answer Date Recorded Are you in a relationship wi th someone who hurts you emotionally and/or physically? No 03/22/2023 Comments No Sex and Gender Information Value Date Recorded Sex Assigned at Female 06/04/2025 11:50 AM CDT Legal Sex Female 12:05 PM HULL DRAFTER Gender Identity Female 06/04/2025 11:50 AM CDT Sexual Orientation Not on file COVID-19 Exposure Response Date Recorded In the last 10 days, have yo u been in contact with someone who was confirmed or suspected to have Coronavirus/COVID-19? No / Unsure 03/30/2023 12:25 PM CDT documented as of this encounter Plan of Treatment Upcoming Encounters Date Type Department Care Team (Late Contact Info) Description 06/09/2025 2:40 PM CDT Office Visit [facility] [address] [place] [address] Meron Jones FNP [address] [place] [address] 11/19/2025 3:40 PM HULL DRAFTER Office Visit [facility] [address] [place] [address] Meron Jones FOREST ECOLOGIST [address] [place] [address] 05/03/2026 3:00 PM CDT Office Visit [facility] [address] [place] [address] Meron Jones FNP [address] [place] [address] documented as of this encounter Procedures Procedure Name Priority Date/Time Associated Diagnosis Comments RH (D) TYPE Stat 04/05/2023 1:56 PM CDT Encounter for test, result positive HCG QUANTITATIVE, BLOOD Stat 04/05/2023 1:56 PM CDT Encounter for test, result positive documented in this encounter Results * RH (D) TYPE (04/05/2023 1:56 PM CDT) RH (D) TYPE Positive 04/05/2023 2:24 PM CDT [facility] Blood Venipuncture / Unknown 04/05/2023 1:56 PM CDT 04/05/2023 1:56 PM CDT Meron Jones [facility] BLOOD BANK ORDERABLES Fi nal Result Performing Organization Address City/State/[facility] Co de Phone Number [facility] CLIA # [id number] [address] [place] [address] * (ABNORMAL) HCG QUANTITATIVE, BLOOD (04/05/2023 1:56 PM CDT) HCG QUANT, BLOOD 13.3(H) <=1.0 mIU/mL 04/05/2023 2:23 PM CDT [facility] Blood Venipuncture / Unknown 04/05/2023 1:56 PM CDT 04/05/2023 1:56 PM CDT Narrative [facility] - 04/05/2023 2:23 PM CDT Gestational Age hCG mIU/mL 0.2-1 week 5 - 50 1-2 weeks 50 - 500 2-3 weeks 100 - 5000 3-4 weeks 500 - 80260 4-5 weeks 1000 - 45854 5-6 weeks [address] - [id number] 6-8 weeks [address] - [address] 2-3 months [id number] A false positive and/or falsely elevated total may result from exogenous administration of hCG (medically supervised or unsupervised) Meron Jones FOREST ECOLOGIST CHEMISTRY ORDERABLES Fin al Result Performing Organization Address [facility] Co de Phone Number [facility] CLIA # [id number] [address] [address] documented in this encounter Visit Diagnoses Diagnosis Encounter for test, result positive examination or test, positive result documented in this encounter Additional Health Concerns Assessment Noted Time PHQ-9 Depression Total Score: 1 04/05/20 23 1:17 PM CDT documented as of this encounter Care Teams Carton Making Machinist Relationship Specialty Start Date End Date Arnoldo Avery MD [address] [phone] PCP - General Family Practice 04/05/23 documented as of this encounter
--- NOTE | 2025-06-05 12:07 | ED_ITS ---
HPI - Abdominal Pain 2 General: Chief Complaint: Abdominal Pain Stated Complaint: abd pain Time Seen by Provider: 06/05/25 11:59 History of Present Illness: 19 yo female presents with left lower qu adrant abdominal pain. She tried some [id number] medications with no relief. Arrives by ambulance was given 100 mcg of fentanyl and 4 mg of Zofran and route. She was noted to have a left ovarian cyst a few weeks ago that was diagnosed at an outpatient visit. She denies any vaginal bleeding or discharge. Associated Symptoms: Reports nausea and vomiting; Denies chills, dysuria and fever(s) Related Data Date of Last Menstrual Period: 05/07/25 Home Medications ?Medication ?Instructions ?Recorded ?Confirmed fluoxetine 20 mg capsule 20 mg PO DAILY 06/05/2505/24 ibuprofen 200 mg tablet (Advil) 400 mg PO Q6H PRN Feve r Or Pain 06/05/25 06/05/25 Previous Rx's ?Medication ?Instructions ?Recorded ondansetron 8 mg disintegrating 8 mg PO .q6 PRN nausea and 03/02/24 tablet vomiting #14 tabs hydrocodone 5 mg-acetaminophen 325 1 tab PO Q6H PRN pa in #20 tabs 06/05/25 mg tablet promethazine 25 mg tablet 25 mg PO Q6H PRN nausea and 06/05/25 vomiting #20 tabs Allergies Allergy/AdvReac Type Severity Reaction Status Date / Time No Known Allergies Allergy Verified 04/02/23 13:58 Review of Systems 2 Const: Denies: fever(s) or chills Card: Denies: chest pain Resp: Reports: dyspnea, productive cough, wheezing and chest congestion GI: Reports: abdominal pain, nausea and vomiting : Reports: flank pain (Left); Denies: dysuria, urinary frequency or urinary urgency Musc: Denies: neck pain or back pain Skin/Breast: Denies: rash [facility] ED 2 Female Reproductive History: Date of last menstrual period: 05/07/25 Physical Exam 2 Const: GENERAL APPEARANCE: cooperative ORIENTATION/CONSCIOUSNESS: Yes awake, Yes oriented to person, Yes oriented to place and Yes oriented to time HENMT: COMMON NORMALS: normocephalic, atraumatic and hearing grossly normal bilaterally HEAD & SCALP: normocephalic and atraumatic Resp: COMMON NORMALS: normal respiratory effort, No retractions, No use of accessory muscles and clear to auscultation bilaterally AUSCULTATION: clear to auscultation bilaterally Cardio: COMMON NORMALS: regular rate, regular rhythm and No murmurs present (Cardio) RATE: regular rate RHYTHM: regular rhythm GI: AUSCULTATION: Yes normoactive bowel sounds PALPATION: Yes Tenderness to palpation present (GI) and No Guarding due to palpation present (GI) Extremity: COMMON NORMALS: normal to inspection, capillary refill normal, no clubbing, cyanosis or edema, no calf tenderness and no pedal edema Neuro: SENSORIUM/ORIENTATION: Yes oriented to person, Yes oriented to place and Yes oriented to time Skin: COMMON NORMALS: no rashes or lesions noted GENERAL SKIN EXAM: no rashes or lesions noted Course 2 Vital Signs: Vital signs: Vital Signs Temperature 98.2 F 06/05/25 11:58 Pulse Rate 71 06/05/25 18:05 Respiratory Rate 19 H 06/05/25 15:31 Blood Pressure 123/80 06/05/25 18:05 Pulse Oximetry 98 06/05/25 18:05 Oxygen Delivery Me thod Room Air 06/05/25 17:30 MDM - Abdominal Pain Medical Decision Making Serum quantitative hCG is positive. Ultrasound shows a small anechoic structure within the endometrial cavity possibly a gestational sac. Ultrasound was done to evaluate for fluid in the pelvis because of the cyst which was noted. I suspect at this point that that is the cause of her pain. Discussed with the patient that she should have her beta-hCG rechecked in approximately 3 days. Should follow-up with her primary care or OB for this. She will need follow-up ultrasound at a later date. White count is normal her hemoglobin is not lowered. Her pain has improved. Discharge her home return if she has worsening of pain or begins to have vaginal bleeding. Medical Records I reviewed the patient's medical records. Lab Data I reviewed the patient's lab results. 06/05/25 12:07 06/05/25 12:07 Labs/Radiology: Radiology Impressions Obstetrics Ultrasound 06/05/25 15:27 IMPRESSION: 1. Very small anechoic structure within the endometrial cavity which may relate to a very small gestational sac. Continued follow up is recommended. 2. O rads 1-2 lesions in the right ovary. Laboratory Results WBC 4.48 10^3/uL (4.5-13.0) L 06/05/25 12:07 RBC 4.64 10^6/uL (3.85-5.65) 06/05/25 12:07 Hgb 12.00 g/dL (12.4-14.8) L 06/05/25 12:07 Hct 36.0 % (36-47) 06/05/25 12:07 MCV 77.6 fl (85-98) L 06/05/25 12:07 MCH 25.9 pg (27-33) L 06/05/25 12:07 MCHC 33.3 g/dL (30-55) 06/05/25 12:07 RDW 14.0 % (12.1-15.1) 06/05/25 12:07 Plt Count 207 10^3/cmm (157-399) 06/05/25 12:07 MPV 11.3 fL (7.4-10.4) H 06/05/25 12:07 Neut % (Auto) 78.0 % 06/05/25 12:07 Lymph % (Auto) 8.0 % 06/05/25 12:07 Grundy % (Auto) 12.3 % 06/05/25 12:07 Eos % (Auto) 1.1 % 06/05/25 12:07 Baso % (Auto) 0.4 % 06/05/25 12:07 Neut # (Auto) 3.49 10^3/uL (1.8-8.0) 06/05/25 12:07 Lymph # (Auto) 0.4 10^3/uL (1.5-6.5) L 06/05/25 12:07 [place] # (Auto) 0.6 10^3/uL (0.2-0.9) 06/05/25 12:07 Eos # (Auto) 0.1 10^3/uL (0.0-0.8) 06/05/25 12:07 Baso # (Auto) 0.0 10^3/uL (0.0-0.1) 06/05/25 12:07 Nucleated RBC % (auto) 0 % 06/05/25 12:07 Nucleated RBCs # 0.0 /100WBC 06/05/25 12:07 Sodium 130 mmol/L (136-145) L 06/05/25 12:07 Potassium 3.4 mmol/L (3.5-5.1) L 06/05/25 12:07 Chloride 99 mmol/L (98-107) 06/05/25 12:07 Carbon Dioxide 21 mmol/L (22-29) L 06/05/25 12:07 Anion Gap 13.4 (5-19) 06/05/25 12:07 BUN 6 mg/dL (6-20) 06/05/25 12:07 Creatinine 0.8 mg/dL (0.5-0.9) 06/05/25 12:07 GFR Calculation 91.4 mL/min (90-130) 06/05/25 12:07 Glucose 93 mg/dL (65-115) 06/05/25 12:07 Calculated Osmolality 267 mOsm/kg (285-295) L 06/05/25 12:07 Calcium 9.2 mg/dL (8.5-10.5) 06/05/25 12:07 Total Bilirubin 0.5 mg/dL (0.15-1.2) 06/05/25 12:07 AST 13 U/L (0-32) 06/05/25 12:07 ALT 9 U/L (0-33) 06/05/25 12:07 Alkaline Phosphatase 44 U/L (35-105) 06/05/25 12:07 Total Protein 7.0 g/dL (6.6-8.7) 06/05/25 12:07 Albumin 4.5 g/dL (3.5-5.2) 06/05/25 12:07 Globulin 2.5 g/dL (1.3-4.6) 06/05/25 12:07 Lipase 23 U/L (13-60) 06/05/25 12:07 HCG, Qual Positive (Negative) H 06/05/25 12:29 Ser , Semi-Qnt 741.90 mIU/mL 06/05/25 12:07 Urine Color Yellow (Yellow) 06/05/25 12:29 Urine Appearance Clear (CLEAR) 06/05/25 12: Urine pH 7.5 (5-7) 06/05/25 12:29 Ur Specific [place] 1.017 (1.005-1.030) 06/05/25 12:29 Urine Protein Negative (Negative) 06/05/25 12:29 Urine Glucose (UA) Negative (Normal) 06/05/25 12:29 Urine Ketones Trace (Negative) 06/05/25 12: Urine Blood Negative (Negative) 06/05/25 12: Urine Nitrate Negative (Negative) 06/05/25 12: Urine Bilirubin Negative (Negative) 06/05/25 12: Urine Urobilinogen 1.0 mg/dL (Negative) 06/05/25 12:29 Ur Leukocyte Esterase Negative (Negative) 06/05/25 12:29 Urine RBC 0-2 /hpf (0-2) 06/05/25 12:29 Urine WBC 0-5 /hpf (0-5) 06/05/25 12:29 Ur Squamous Epith Cells 0-5 /hpf (0-5) 06/05/25 12: Amorphous Sediment Not Reportable 06/05/25 12: Urine Bacteria None seen /hpf (NONE) 06/05/25 12: Hyaline Casts 0.81 /lpf 06/05/25 12:29 Blood Type AB Positive 06/05/25 13:41 Rho(D) Type Rh positive 06/05/25 13:41 All radiology interpretation(s) finalized by discharge Discharge Plan Discharge Patient Disposition: Home Clinical Impression: Pelvic pain, First trimester Condition: Stable Prescriptions: New hydrocodone-acetaminophen 5-325 mg tablet 1 tab PO Q6H PRN (Reason: pain) Qty: 20 0RF promethazine 25 mg tablet 25 mg PO Q6H PRN (Reason: nausea and vomiting) Qty: 20 0RF No Action ondansetron 8 mg tablet,disintegrating 8 mg PO .q6 PRN (Reason: nausea and vomiting) Qty: 14 0RF ibuprofen [Advil] 200 mg Tablet 400 mg PO Q6H PRN (Reason: Fever Or Pain) fluoxetine 20 mg capsule 20 mg PO DAILY Discharge Orders: Discharge ED (Routine); Ordered 06/05/25 Ordered By: Armond Peralta Referrals: Kassie Mosher MD [Primary Care Provider] Discharge Diet: Clear Liquid Discharge Activity: Increase activity as tolerated Patient Instructions: Opioid Safety, Pain Management, Patient Portal & Payam Instructions Activity Restrictions/Additional Instructions: Thank you for choosing [facility] for your healthcare needs today. It is very important that you follow up as instructed or that you return to the Emergency Department should you have concerns or if your condition changes or worsens in any way. Emergency department visits are focused on emergent conditions, in some cases you may require further evaluation on an outpatient basis. You were seen in the emergency room with complaints of pelvic pain. You were found to be today your beta-hCG is at 700 which is consistent with the dates you had given us. Ultrasound this early in cannot confirm an intrauterine but did note some fluid in the pelvis from an ovarian cyst this likely is the cause of the pain. You should follow-up with your primary care doctor within the next week you are given pain and nausea medications to use as needed. Clear liquid diet for the next 24 to 48 hours and advance as tolerated (Please note that included in your discharge packet is information concerning opioid safety and pain management. This information is given to all patients were discharged from the ER regardless of their discharge diagnosis or the medicines they usually take or are prescribed.) Print Language: Divehi Coding Level of Care Code ED Substance Abuse Specialist for Padmini rOtiz
[2025-06-05 12:22] LABS: Hematocrit 36.0 % (36-47); Hemoglobin 12.00 g/dL (12.4-14.8); Mean Corpuscular HGB Conc 33.3 g/dL (30-55); Mean Corpuscular Hemoglobin 25.9 pg (27-33); Mean Corpuscular Volume 77.6 fl (85-98); Nucleated Red Blood Cells % 0 %; Platelet Count 207 10^3/cmm (157-399); Red Blood Count 4.64 10^6/uL (3.85-5.65); White Blood Count 4.48 10^3/uL (4.5-13.0)
[2025-06-05] MEDS: morphine 4 mg/mL SDV 1 mL IVP ×2 (12:25→15:31)
[2025-06-05 12:40] LABS: Alanine Aminotransferase 9 U/L (0-33); Albumin Level 4.5 g/dL (3.5-5.2); Alkaline Phosphatase 44 U/L (35-105); Anion Gap 13.4 (5-19); Aspartate Amino Transferase 13 U/L (0-32); Blood Urea Nitrogen 6 mg/dL (6-20); Calcium 9.2 mg/dL (8.5-10.5); Carbon Dioxide 21 mmol/L (22-29); Chloride 99 mmol/L (98-107); Creatinine Clr Calc Pharmacy 107.9875; Globulin 2.5 g/dL (1.3-4.6); Glucose 93 mg/dL (65-115); Lipase 23 U/L (13-60); Osmolality Calculated 267 mOsm/kg (285-295); Potassium 3.4 mmol/L (3.5-5.1); Sodium 130 mmol/L (136-145); Total Protein 7.0 g/dL (6.6-8.7)
[2025-06-05 12:47] LABS: Glucose Urine UA Negative (Normal); HCG Qualitative Urine. Positive (Negative); Nitrate Urine Negative (Negative); Specific Gravity, Urine 1.017 (1.005-1.030)
[2025-06-05 12:52] LABS: Add Urine Microscopic? YES
[2025-06-05 13:28] LABS: HCG, Serum Qual Positive (Negative)
--- NOTE | 2025-06-05 15:27 | USR_ITS ---
PROCEDURE INFORMATION: Exam: US First Trimester, Transabdominal and US , Transvaginal Exam date and time: 06/05/2025 4:23 PM Age: 19 years old Clinical indication: complicated by abdominal or pelvic pain; Right lower quadrant; First trimester (<14 weeks 0 days); Gestational age or lmp: 4w1d; ; Additional info: Up pelvic pain positive beta-hcg 741 LABS AND CLINICAL REPORTS: Last menstrual period start date: 05/07/2025 Gestational age (Established): 4 w 1 d Estimated due date (Established): 02/11/2026 TECHNIQUE: Imaging protocol: Real-time transabdominal obstetrical ultrasound of the maternal pelvis and a first trimester , less than 14 weeks 0 days, with image documentation. Transvaginal imaging was used for better evaluation of the fetus, adnexa, and/or cervix. COMPARISON: US transvaginal [id number] 03/02/2024 3:13 PM FINDINGS: GESTATION: Gestation: There is no definitive intrauterine at this time. However there is a findings of a varying thin anechoic structure within the endometrial cavity which may represent a very small gestational sac. No definitive pole identified. Embryo/ cardiac activity (BPM): N/a Extra-embryonic membranes/Placenta: Not applicable Amniotic/Chorionic fluid: N/a BIOMETRY: Gestational age (AUA): N/a Mean sac diameter: 0.19 cm. MATERNAL: Uterus: Unremarkable. Cervix: Cervical length measures 3.7 cm. The cervix appears within normal limits. Right ovary/adnexa: There is flow preserved to the right ovary. There is a large cyst with septations in the right ovary which still represents an O rads 1-2 lesion. Additional cystic structure in the right ovary may represent a follicle. Left ovary/adnexa: There is flow preserved to the left ovary. Intraperitoneal space: There is some free fluid in the pelvic cul-de-sac and in the right paraovarian area. US/US OB <=14 wk fetus w transvag IMPRESSION: 1. Very small anechoic structure within the endometrial cavity which may relate to a very small gestational sac. Continued follow up is recommended. 2. O rads 1-2 lesions in the right ovary.
== END 2025-06-05 18:05 | disposition home or self-care (01) ==
PROVIDERS: Emergency Provider Family Medicine; PCP Specialist
DX: O26.891 Other specified pregnancy related conditions, first trimester (principal); R10.2 Pelvic and perineal pain
CPT/HCPCS: 36415; 76801; 76817; 80053; 81001; 81025; 83690; 84702; 84703; 85025; 86900; 96361; 96374; 96375; 96376; 99284; J1885; J2270; J7030

== ENCOUNTER 2025-06-11 06:47 | Outpatient (CLI) | payer OTHER, MEDICAID, SELFPAY ==
--- NOTE | 2025-06-11 06:56 | US_ITS ---
WS: [id number] EARLY OBSTETRICAL ULTRASOUND (<14 WEEKS). HISTORY: POSSIBLE COMPLICATION COMPARISON: 06/05/2025 Seen on transvaginal imaging is a small intrauterine gestational sac with a mean diameter of 0.8 cm corresponding to a gestation of 5 weeks and 4 days. There is a yolk sac present. No pole or cardiac activity. No subchorionic hemorrhage. RIGHT ovary measures 3.2 x 3.4 x 2.6 cm and contains a corpus luteum of measuring 2.3 x 1.4 x 1.9 cm. LEFT ovary measures 1.8 x 1.8 x 1.9 cm. Several small follicles. US/US OB <=14 wk fetus w transvag IMPRESSION: 1. Single intrauterine gestation of 5w4d with an EDC of 02/07/2026. No p ole or cardiac activity identified due to early gestational age. Recommend 1 we ek transvaginal pelvic ultrasound follow-up to confirm intrauterine crown-rump length with cardiac activity. 2. No subchorionic hemorrhage.
== END 2025-06-11 06:48 | disposition home or self-care (01) ==
LOC: RAD 06:50
PROVIDERS: PCP Specialist; Visit Provider Registered Nurse
DX: O35.8XX0 Maternal care for other (suspected) fetal abnormality and damage, not applicable or unspecified (principal); Z3A.01 Less than 8 weeks gestation of pregnancy
CPT/HCPCS: 76801; 76817

== ENCOUNTER 2025-06-20 10:17 | Emergency (ER) | payer OTHER, MEDICAID, SELFPAY ==
[2025-06-20 10:20] VITALS: BP 116/79; PULSE 70; TEMP 36.8; O2SAT 100; BMI 22.6
--- OUTSIDE RECORDS SUMMARY | 2025-06-20 10:20 | XMS_ITS | Encounter Summary ---
Author Organization [facility] Address [address] [place] [address] Care Team Providers Care Library Services Dean Name Role Phone Arnoldo Avery MD Primary Care Provider [phone] Reason for Visit * Reason Onset Date Comments Results 06/09/2025 Encounter Details Date Type Department Care Team (Latest Contact Info) Description 06/09/2025 Results Follow-Up [facility] Medicine [place] [address] [address] Meron Jones, [facility] [address] [address] HCG QUANTITATIVE, BLOOD, CBC WITH DIFFERENTIAL Social History Tobacco Use Types Packs/Day Years Used Date Smoking Tobacco: Never Passive Smoke Exposure: Never Smokeless Tobacco: Never Alcohol Use Standard Drinks/Week Comments Never 0 (1 standard drink = 0.6 oz pur e alcohol) Feeling Safe Answer Date Recorded Are you in a relationship wi th someone who hurts you emotionally and/or physically? No 10/12/2024 Comments Yes Sex and Gender Information Value Date Recorded Sex Assigned at Female 06/04/2025 11:50 AM CDT Legal Sex Female 12:05 PM SPACE SYSTEMS OPERATIONS SUPERINTENDENT Gender Identity Female 06/04/2025 11:50 AM CDT Sexual Orientation Not on file documented as of this encounter Miscellaneous Notes * Telephone Encounter - Dawn Grant RN - 06/09/2025 4:22 PM CDT ----- Message from Meron Jones sent at 06/09/2025 3:45 PM CDT ----- Attempted to call patient with results. No answer. Send to clinic to speak to me when she calls back. ----- Message ----- From: August [facility], Background Sent: 06/09/2025 3:32 PM CDT To: LIANNE Juarez documented in this encounter Plan of Treatment Upcoming Encounters Date Type Department Care Team (Late st Contact Info) Description 06/21/2025 Orders Only [facility] [address] [place] [address] Meron Jones FNP [address] [place] [address] 07/01/2025 12:00 PM CDT Appointment [facility] [address] [place] [phone] Meron Jones FNP [address] [place] [address] 11/19/2025 3:40 PM SPACE SYSTEMS OPERATIONS SUPERINTENDENT Office Visit [facility] [address] [place] [address] Meron Jones FNP [address] [place] [address] 05/03/2026 3:00 PM CDT Office Visit [facility] [address] [place] [address] Meron Jones FNP [address] [place] [address] documented as of this encounter Visit Diagnoses Not on filedocumented in this encounter Additional Health Concerns Assessment Noted Time PHQ-9 Depression Total Score: 1 10/13/19 25 1:49 PM SPACE SYSTEMS OPERATIONS SUPERINTENDENT documented as of this encounter Care Teams Library Services Dean Relationship Specialty Start Date End Date Arnoldo Avery MD [address] [phone] PCP - General Family Practice 04/05/23 documented as of this encounter
--- OUTSIDE RECORDS SUMMARY | 2025-06-20 10:20 | XMS_ITS | Encounter Summary ---
Author Organization [facility] Address [address] [place] [address] Care Team Providers Care Histological Illustrator Name Role Phone Arnoldo Avery MD Primary Care Provider [phone] Encounter Details Date Type Department Care Team (Late Contact Info) Description 10/14/2024 Results Follow-Up [facility] Emergency Medicine [address] [address] Miesha Wilkins, RN GC/CHLAMYDIA, UROGENITAL [...] AM CDT Legal Sex Female 12:05 PM CONVEYOR WORKER Gender Identity Female 06/04/2025 11:50 AM CDT Sexual Orientation Not on file documented as of this encounter Plan of Treatment Upcoming Encounters Date Type Department Care Team (Late Contact Info) Description 06/21/2025 Orders Only [facility] Medicine [place] [address] [address] Meron Jones, STORE LEAD [address] [address] 07/01/2025 12:00 PM CDT Appointment [facility] [address] [place] [address] Meron Jones [facility] [address] [place] [address] 11/19/2025 3:40 PM CONVEYOR WORKER Office Visit [facility] [address] [place] [address] Meron Jones [facility] [address] [place] [address] 05/03/2026 3:00 PM CDT Office Visit [facility] [address] [place] [address] Meron Jones [facility] [address] [place] [address] documented as of this encounter Visit Diagnoses Not on filedocumented in this encounter Additional Health Concerns Assessment Noted Time PHQ-9 Depression Total Score: 1 10/13/19 25 1:49 PM CONVEYOR WORKER documented as of this encounter Care Teams Histological Illustrator Relationship Specialty Start Date End Date Arnoldo Avery MD [address] [place] [address] PCP - General Family Practice 04/05/23 documented as of this encounter
--- OUTSIDE RECORDS SUMMARY | 2025-06-20 10:20 | XMS_ITS | Encounter Summary ---
Author Organization [facility] Address [address] [place] [address] Care Team Providers Care Music Sound Light Technician Name Role Phone Geraldine Linares MD Primary Care Provider [phone] Encounter Details Date Type Department Care Team (Late st Contact Info) Description 11/24/2007 Outpatient Historical [address] [phone] Shanthi Hi FNP [address] [place] [phone] Social History Tobacco Use Types Packs/Day Years Used Date Smoking Tobacco: Never Assessed Comments Unknown Sex and Gender Information Value Date Recorded Sex Assigned at Not on file Legal Sex Female 3:17 AM DEPARTMENT SPECIALIST Gender Identity Not on file Sexual Orientation [...] week or before as needed. SAULO Villarreal [facility] Electronically Signed by SAULO Villarreal 12/02/2007 16:52 , tony Montiel Document #: [id number] cc: documented in this encounter Plan of Treatment Not on file documented as of this encounter Procedures Procedure Name Priority Date/Time Associated Diagnosis Comments POC RAPID STREP A ANTIGEN Stat 11/24/2007 2:30 PM DEPARTMENT SPECIALIST documented in this encounter Results * POC RAPID STREP A (11/24/2007 2:30 PM DEPARTMENT SPECIALIST) RAPID STREP NEGATIVE NEG [facility] PERFORMED IN OFFICE 11/24/2007 2:30 PM DEPARTMENT SPECIALIST 11/24/2007 2:35 PM DEPARTMENT SPECIALIST us German Ramos DO POINT OF CARE TESTING Final Res ult [facility] PERFORMED IN OFFICE documented in this encounter Visit Diagnoses Not on filedocumented in this encounter Care Teams Music Sound Light Technician Relationship Specialty Start Date End Date Geraldine Linares MD [address] [phone] PCP - General Family Practice 01/20/14 documented as of this encounter
--- OUTSIDE RECORDS SUMMARY | 2025-06-20 10:20 | XMS_ITS | Encounter Summary ---
Author Organization [facility] Address [address] [place] [address] Care Team Providers Care Gun Examiner Name Role Phone Geraldine Linares MD Primary Care Provider Encounter Details Date Type Department Care Team (Latest Contact Info) Description 11/07/2006 Outpatient Historical [facility] Medicine [place] [address] [phone] Shanthi Hi, ROPE RIDER [address] [place] [phone] Other Conjunctivitis (Primary Dx) Social History Tobacco Use Types Packs/Day Years Used Date Smoking Tobacco: Never Assessed Comments Unknown Sex and Gender Information Value Date Recorded Sex Assigned at Not on file Legal Sex Female 3:17 AM HOSPITAL INTERN Gender Identity Not on file Sexual Orientation Not on file documented as of this encounter Plan of Treatment Not on file documented as of this encounter Visit Diagnoses Diagnosis Other conjunctivitis- Primary documented in this encounter Care Teams Gun Examiner Relationship Specialty Start Date End Date Geraldine Linares MD [address] [phone] PCP - General Family Practice 01/20/14 documented as of this encounter
--- OUTSIDE RECORDS SUMMARY | 2025-06-20 10:20 | XMS_ITS | Encounter Summary ---
Author Organization [facility] Address [address] [place] [address] Care Team Providers Care Kaiawhina Kohanga Reo Name Role Phone Arnoldo Avery MD Primary Care Provider [phone] Encounter Details Date Type Department Care Team (Late Contact Info) Description 04/05/2023 Lab Requisition [facility] Laboratory Services [place] [address] [address] Meron Jones, [facility] [address] [place] [phone] Encounter for test, result positive Social History [...] AM CDT Legal Sex Female 12:05 PM MANAGER HOSPICE Gender Identity Female 06/04/2025 11:50 AM CDT [...] (Late Contact Info) Description 06/21/2025 Orders Only [facility] [address] [place] [address] Meron Jones, LUMBER CARRIER [address] [place] [address] 07/01/2025 12:00 PM CDT Appointment [facility] [address] [place] [phone] Meron Jones, LUMBER CARRIER [address] [place] [address] 11/19/2025 3:40 PM MANAGER HOSPICE Office Visit [facility] [address] [place] [address] Meron Jones, LUMBER CARRIER [address] [place] [address] 05/03/2026 3:00 PM CDT Office Visit [facility] [address] [place] [address] Meron Jones, LUMBER CARRIER [address] [place] [address] documented as of this encounter Procedures Procedure Name Priority Date/Time Associated Diagnosis Comments RH (D) TYPE Stat 04/05/2023 1:56 PM CDT Encounter for test, result positive HCG QUANTITATIVE, BLOOD Stat 04/05/2023 1:56 PM CDT Encounter for test, result positive documented in this encounter Results * RH (D) TYPE (04/05/2023 1:56 PM CDT) RH (D) TYPE Positive 04/05/2023 2:24 PM CDT [facility] Blood Venipuncture / Unknown 04/05/2023 1:56 PM CDT 04/05/2023 1:56 PM CDT Meron Jones [facility] BLOOD BANK ORDERABLES Fi nal Result Performing Organization Address [facility] Co de Phone Number [facility] CLIA # [id number] [address] [place] [phone] * (ABNORMAL) HCG QUANTITATIVE, BLOOD (04/05/2023 1:56 PM CDT) HCG QUANT, BLOOD 13.3(H) <=1.0 mIU/mL 04/05/2023 2:23 PM CDT [facility] Blood Venipuncture / Unknown 04/05/2023 1:56 PM CDT 04/05/2023 1:56 PM CDT Narrative [facility] - 04/05/2023 2:23 PM CDT Gestational Age hCG mIU/mL 0.2-1 week 5 - 50 1-2 weeks 50 - 500 2-3 weeks 100 - 5000 3-4 weeks 500 - 71262 4-5 weeks 1000 - 84794 5-6 weeks 01931 - [id number] 6-8 weeks 05158 - [id number] 2-3 months [id number] - [id number] A false positive and/or falsely elevated total may result from exogenous administration of hCG (medically supervised or unsupervised) Meron Jones [facility] CHEMISTRY ORDERABLES Fin al Result Performing Organization Address [facility] Co de Phone Number [facility] CLIA # [id number] [address] [place] [phone] documented in this encounter Visit Diagnoses Diagnosis Encounter for test, result positive examination or test, positive result documented in this encounter Additional Health Concerns Assessment Noted Time PHQ-9 Depression Total Score: 1 04/05/20 23 1:17 PM CDT documented as of this encounter Care Teams Kaiawhina Kohanga Reo Relationship Specialty Start Date End Date Arnoldo Avery MD [address] [phone] PCP - General Family Practice 04/05/23 documented as of this encounter
--- OUTSIDE RECORDS SUMMARY | 2025-06-20 10:20 | XMS_ITS | Encounter Summary ---
Author Organization [facility] Address [address] [place] [address] Care Team Providers Care Fish Technologist Name Role Phone Geraldine Linares MD Primary Care Provider Encounter Details Date Type Department Care Team (Latest Contact Info) Description 04/10/2006 Outpatient Historical [facility] [address] [place] [address] Shanthi Hi, CHIEF SUPPLY CHAIN OFFICER [address] [place] [phone] Acute Upper Respiratory Infections of Unspecified Site (Primary Dx) Social History Tobacco Use Types Packs/Day Years Used Date Smoking Tobacco: Never Assessed Comments Unknown Sex and Gender Information Value Date Recorded Sex Assigned at Not on file Legal Sex Female 3:17 AM KNIFE EDGER Gender Identity Not on file Sexual Orientation Not on file documented as of this encounter Plan of Treatment Not on file documented as of this encounter Visit Diagnoses Diagnosis Acute upper respiratory infections of unspecified site- Primary documented in this encounter Care Teams Fish Technologist Relationship Specialty Start Date End Date Geraldine Linares MD [address] [facility] [place] [phone] PCP - General Family Practice 01/20/14 documented as of this encounter
--- OUTSIDE RECORDS SUMMARY | 2025-06-20 10:20 | XMS_ITS | Encounter Summary ---
Author Organization [facility] Address [address] [place] [address] Care Team Providers Care Pharmacy Technician Per Diem Name Role Phone Geraldine Linares MD Primary Care Provider [phone] Encounter Details Date Type Department Care Team (Latest Contact Info) Description 09/18/2005 Outpatient Historical [facility] Family Medicine- [place] [address] [place] [phone] Sierra Baxter NP NO ADDRESS ON FILE ACUTE SINUSITIS NOS (Primary Dx); ACUTE PHARYNGITIS; OTITIS MEDIA NOS Social History Tobacco Use Types Packs/Day Years Used Date Smoking Tobacco: Never Assessed Comments Unknown Sex and Gender Information Value Date Recorded Sex Assigned at Not on file Legal Sex Female 3:17 AM ACTIVITIES DIRECTOR Gender Identity Not on file Sexual Orientation Not on file documented as of this encounter Plan of Treatment Not on file documented as of this encounter Visit Diagnoses Diagnosis Acute sinusitis, unspecified- Primary Acute pharyngitis Unspecified otitis media documented in this encounter Care Teams Pharmacy Technician Per Diem Relationship Specialty Start Date End Date Gerladine Linares MD [address] [facility] [address] [place] [address] PCP - General Family Practice 01/20/14 documented as of this encounter
--- OUTSIDE RECORDS SUMMARY | 2025-06-20 10:20 | XMS_ITS | Encounter Summary ---
Author Organization [facility] Address [address] [place] [address] Care Team Providers Care Wharf Tally Clerk Name Role Phone Geraldine Linares MD Primary Care Provider Encounter Details Date Type Department Care Team (Latest Contact Info) Description 10/23/2005 Outpatient Historical [facility] Medicine [place] [address] [phone] Shanthi Hi, MANAGER CONTINUOUS IMPROVEMENT [address] [place] [phone] ACUTE PHARYNGITIS (Primary Dx) Social History Tobacco Use Types Packs/Day Years Used Date Smoking Tobacco: Never Assessed Comments Unknown Sex and Gender Information Value Date Recorded Sex Assigned at Not on file Legal Sex Female 3: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
--- OUTSIDE RECORDS SUMMARY | 2025-06-20 10:20 | XMS_ITS | Encounter Summary ---
Author Organization [facility] Address [address] [place] [address] Care Team Providers Care Director Digital Advertising Name Role Phone Geraldine Linares MD Primary Care Provider Encounter Details Date Type Department Care Team (Latest Contact Info) Description 05/29/2005 Outpatient Historical [facility] Medicine [place] [address] [phone] Shanthi Hi, BASS SINGER [address] [place] [address] OTITIS MEDIA NOS (Primary Dx) Social History Tobacco Use Types Packs/Day Years Used Date Smoking Tobacco: Never Assessed Comments Unknown Sex and Gender Information Value Date Recorded Sex Assigned at Not on file Legal Sex Female 3:17 AM CLINICAL INFORMATICS EDUCATOR Gender Identity Not on file Sexual Orientation Not on file documented as of this encounter Plan of Treatment Not on file documented as of this encounter Visit Diagnoses Diagnosis Unspecified otitis media- Primary documented in this encounter Care Teams Director Digital Advertising Relationship Specialty Start Date End Date Geraldine Linares MD [address] [phone] PCP - General Family Practice 01/20/14 documented as of this encounter
--- OUTSIDE RECORDS SUMMARY | 2025-06-20 10:20 | XMS_ITS | Encounter Summary ---
Author Organization [facility] Address [address] [place] [address] Care Team Providers Care Cutting Room Supervisor Name Role Phone Geraldine Linares MD Primary Care Provider Encounter Details Date Type Department Care Team (Latest Contact Info) Description 2004 Outpatient Historical [facility] [address] [place] [address] Shanthi Hi, YEAST FERMENTATION ATTENDANT [address] [place] [phone] Routine child health exam (Primary Dx) Social History Tobacco Use Types Packs/Day Years Used Date Smoking Tobacco: Never Assessed Comments Unknown Sex and Gender Information Value Date Recorded Sex Assigned at Not on file Legal Sex Female 3:17 AM FREELANCE MAKEUP ARTIST Gender Identity Not on file Sexual Orientation Not on file documented as of this encounter Plan of Treatment Not on file documented as of this encounter Visit Diagnoses Diagnosis Routine child health exam- Primary Routine infant or child health check documented in this encounter Care Teams Cutting Room Supervisor Relationship Specialty Start Date End Date Geraldine Linares MD [address] [facility] [place] [phone] PCP - General Family Practice 01/20/14 documented as of this encounter
--- OUTSIDE RECORDS SUMMARY | 2025-06-20 10:20 | XMS_ITS | Encounter Summary ---
Author Organization [facility] Address [address] [place] [address] Care Team Providers Care Crop Roller Name Role Phone Geraldine Linares MD Primary Care Provider [phone] Encounter Details Date Type Department Care Team (Latest Contact Info) Description 2004 [facility] [place] [address] [address] Arlette Bourne MD [address] [place] [phone] Routine child health exam (Primary Dx) Social History Tobacco Use Types Packs/Day Years Used Date Smoking Tobacco: Never Assessed Comments Unknown Sex and Gender Information Value Date Recorded Sex Assigned at Not on file Legal Sex Female 3:17 AM ENGRAVER PANTOGRAPH Gender Identity Not on file Sexual Orientation Not on file documented as of this encounter Plan of Treatment Not on file documented as of this encounter Visit Diagnoses Diagnosis Routine child health exam- Primary Routine infant or child health check documented in this encounter Care Teams Crop Roller Relationship Specialty Start Date End Date Geraldine Linares MD [address] [facility] [address] [place] [phone] PCP - General Family Practice 01/20/14 documented as of this encounter
--- OUTSIDE RECORDS SUMMARY | 2025-06-20 10:20 | XMS_ITS | Encounter Summary ---
Author Organization [facility] Address [address] [place] [address] Care Team Providers Care Senior Net Engineer Name Role Phone Arnoldo Avery MD Primary Care Provider [phone] Encounter Details Date Type Department Care Team (Late Contact Info) Description 06/09/[address] [facility] Laboratory Services [place] [address] [address] Meron Jones FNP [address] [address] Social History Tobacco Use Types Packs/Day Years [...] AM CDT Legal Sex Female 12:05 PM MEDICATION TECHNICIAN Gender Identity Female 06/04/2025 11:50 AM CDT Sexual Orientation Not on file documented as of this encounter Plan of Treatment Upcoming Encounters Date Type Department Care Team (Late Contact Info) Description 06/21/2025 Orders Only [facility] Medicine [place] [address] [address] Meron Jones FNP [address] [place] [address] 07/01/2025 12:00 PM CDT Appointment [facility] [address] [place] [phone] Meron Jones, [facility] [address] [place] [phone] 11/19/2025 3:40 PM MEDICATION TECHNICIAN Office Visit [facility] [address] [place] [address] Meron Jones, [facility] [address] [place] [address] 05/03/2026 3:00 PM CDT Office Visit [facility] [address] [place] [address] Meron Jones, [facility] [address] [place] [address] documented as of this encounter Procedures Procedure Name Priority Date/Time Associated Diagnosis Comments CBC WITH DIFFERENTIAL Stat 06/09/2025 3:10 PM CDT HCG QUANTITATIVE, BLOOD Stat 06/09/2025 3:10 PM CDT documented in this encounter Results * (ABNORMAL) CBC WITH DIFFERENTIAL (06/09/2025 3:10 PM CDT) WBC 4.1 4.0 - 10.0 K/uL 06/09/2025 3:32 PM CDT [facility] RBC 4.70 3.93 - 5.22 M/uL 06/09/2025 3:32 PM CDT [facility] HEMOGLOBIN 12.3 11.2 - 15.7 g/dL 06/09/2025 3:32 PM [facility] HEMATOCRIT 35.9 34.1 - 44.9 % 06/09/2025 3:32 PM [facility] MCV 76.4(L) 79.4 - 94.8 fL 06/09/2025 3:32 PM [facility] MCH 26.2 25.6 - 32.2 pg 06/09/2025 3:32 PM [facility] MCHC 34.3 32.2 - 35.5 g/dL 06/09/2025 3:32 PM [facility] RDW 13.6 11.0 - 14.5 % 06/09/2025 3:32 PM [facility] RDW-STDEV 37.8 36.9 - 56.9 fL 06/09/2025 3:32 PM [facility] PLATELETS 231 163 - 337 K/uL 06/09/2025 3:32 PM [facility] MPV 10.6 10.0 - 14.8 fL 06/09/2025 3:32 PM [facility] NEUTROPHILS 66 34 - 71 % 06/09/2025 3:32 PM [facility] LYMPHOCYTES 22 19 - 52 % 06/09/2025 3:32 PM [facility] MONOCYTES 10 5 - 13 % 06/09/2025 3:32 PM [facility] EOSINOPHILS 3 1 - 6 % 06/09/2025 3:32 PM [facility] BASOPHILS 0 0 - 1 % 06/09/2025 3:32 PM [facility] IMMATURE GRANULOCYTES 0 % 06/09/2025 3:32 PM [facility] NEUTROPHIL ABSOLUTE 2.67 1.56 - 6.13 K/uL 06/09/2025 3:32 PM [facility] LYMPHOCYTE ABSOLUTE 0.88(L) 1.20 - 3.40 K/uL 06/09/2025 3:32 PM [facility] MONOCYTE ABSOLUTE 0.41(H) 0.24 - 0.36 K/uL 06/09/2025 3:32 PM CDT [facility] EOSINOPHIL ABSOLUTE 0.10 0.04 - 0.36 K/uL 06/09/2025 3:32 PM CDT [facility] BASOPHILS ABSOLUTE 0.01 0.01 - 0.08 K/uL 06/09/2025 3:32 PM CDT [facility] IMMATURE GRANULOCYTES ABSOLUTE 0.01 K/uL 06/09/2025 3:32 PM CDT [facility] Blood 06/09/2025 3:10 PM CDT 06/09/2025 3:13 PM CDT us Meron Jones WATCH ASSEMBLY INSTRUCTOR HEMATOLOGY ORDERABLES Fi nal Result [facility] CLIA # [id number] [address] [place] [address] * (ABNORMAL) HCG QUANTITATIVE, BLOOD (06/09/2025 3:10 PM CDT) HCG QUANT, BLOOD 3,286.0(H ) <=1.0 mIU/mL 06/09/2025 3:41 PM CDT [facility] Comment: Male <= 2 mIU/mL Female Non premenopausal <= 1 mIU/mL Non postmenopausal <= 7 mIU/mL Gestational Age HCG Concentration 3 Weeks 5.4 - 72.0 mIU/mL 4 Weeks 10.2 - 708 mIU/mL 5 Weeks 217 - 8245 mIU/mL 6 Weeks 152 - 32,177 mIU/mL 7 Weeks 4059 - 153,767 mIU/mL 8 Weeks 31,366 - 149,094 mIU/mL 9 Weeks 59,109 - 135,901 mIU/mL 10 Weeks 44,186 - 170,409 mIU/mL 12 Weeks 27,107 - 201,615 mIU/mL 14 Weeks 24,302 - 93,646 mIU/mL 15 Weeks 12,540 - 69,747 mIU/mL 16 Weeks 8904 - 55,332 mIU/mL 17 Weeks 8240 - 51,793 mIU/mL 18 Weeks 9649 - 55,271 mIU/mL Blood 06/09/2025 3:10 PM CDT 06/09/2025 3:13 PM CDT Meron Jones WATCH ASSEMBLY INSTRUCTOR CHEMISTRY ORDERABLES Fin al Result [facility] # [id number] [address] [id number] documented in this encounter Visit Diagnoses Not on filedocumented in this encounter Additional Health Concerns Assessment Noted Time PHQ-9 Depression Total Score: 1 10/13/19 25 1:49 PM MEDICATION TECHNICIAN documented as of this encounter Care Teams Senior Net Engineer Relationship Specialty Start Date End Date Arnoldo Avery MD [address] [phone] PCP - General Family Practice 04/05/23 documented as of this encounter
--- OUTSIDE RECORDS SUMMARY | 2025-06-20 10:20 | XMS_ITS | Encounter Summary ---
Author Organization [facility] Address [address] [place] [address] Care Team Providers Care Mold Swabber Name Role Phone Geraldine Linares MD Primary Care Provider [phone] Encounter Details Date Type Department Care Team (Latest Contact Info) Description 08/12/2006 Outpatient Historical [facility] [address] [place] [address] Shanthi Hi, FORM BUILDER [address] [place] [phone] Acute Pharyngitis (Primary Dx); Unspecified Otitis Media Social History Tobacco Use Types Packs/Day Years Used Date Smoking Tobacco: Never Assessed Comments Unknown Sex and Gender Information Value Date Recorded Sex Assigned at Not on file Legal Sex Female 3:17 AM REJOINER Gender Identity Not on file Sexual Orientation Not on file documented as of this encounter Plan of Treatment Not on file documented as of this encounter Visit Diagnoses Diagnosis Acute pharyngitis- Primary Unspecified otitis media documented in this encounter Care Teams Mold Swabber Relationship Specialty Start Date End Date Geraldine Linares MD [address] [facility] 60 [place] [phone] PCP - General Family Practice 01/20/14 documented as of this encounter
--- OUTSIDE RECORDS SUMMARY | 2025-06-20 10:20 | XMS_ITS | Encounter Summary ---
Author Organization [facility] Address [address] [place] [address] Care Team Providers Care Refinisher Name Role Phone Geraldine Linares MD Primary Care Provider Encounter Details Date Type Department Care Team (Latest Contact Info) Description 2004 Outpatient Historical [facility] Medicine [place] [address] [phone] Arlette Bourne MD [address] [place] [address] Routine child health exam (Primary Dx); TONGUE TIE Social History Tobacco Use Types Packs/Day Years Used Date Smoking Tobacco: Never Assessed Comments Unknown Sex and Gender Information Value Date Recorded Sex Assigned at Not on file Legal Sex Female 3:17 AM VIDEO CONTROL ENGINEER Gender Identity Not on file Sexual Orientation Not on file documented as of this encounter Plan of Treatment Not on file documented as of this encounter Visit Diagnoses Diagnosis Routine child health exam- Primary Routine or child health check Tongue tie documented in this encounter Care Teams Refinisher Relationship Specialty Start Date End Date Geraldine Linares MD [address] [facility] 60 [place] [address] PCP - General Family Practice 01/20/14 documented as of this encounter
--- OUTSIDE RECORDS SUMMARY | 2025-06-20 10:20 | XMS_ITS | Encounter Summary ---
Author Organization [facility] Address [address] [place] [address] Care Team Providers Care Staff Rn Name Role Phone Geraldine Linares MD Primary Care Provider Encounter Details Date Type Department Care Team (Latest Contact Info) Description 2004 Outpatient Historical [facility] Medicine [place] [address] [phone] Arlette Bourne MD [address] [place] [address] ACUTE URI NOS (Primary Dx); TONGUE TIE Social History Tobacco Use Types Packs/Day Years Used Date Smoking Tobacco: Never Assessed Comments Unknown Sex and Gender Information Value Date Recorded Sex Assigned at Not on file Legal Sex Female 3:17 AM PUBLICATION DESIGNER Gender Identity Not on file Sexual Orientation Not on file documented as of this encounter Plan of Treatment Not on file documented as of this encounter Visit Diagnoses Diagnosis Acute upper respiratory infections of unspecified site- Primary Tongue tie documented in this encounter Care Teams Staff Rn Relationship Specialty Start Date End Date Geraldine Linares MD [address] [facility] 60 [place] [phone] PCP - General Family Practice 01/20/14 documented as of this encounter
--- OUTSIDE RECORDS SUMMARY | 2025-06-20 10:20 | XMS_ITS | Encounter Summary ---
Author Organization [facility] Address [address] [place] [address] Care Team Providers Care Top Lifter Name Role Phone Geraldine Linares MD Primary Care Provider Encounter Details Date Type Department Care Team (Latest Contact Info) Description 06/12/2006 Outpatient Historical [facility] [address] [place] [address] Shanthi Hi, AMMUNITION OFFICER [address] [place] [phone] Acute Pharyngitis (Primary Dx) Social History Tobacco Use Types Packs/Day Years Used Date Smoking Tobacco: Never Assessed Comments Unknown Sex and Gender Information Value Date Recorded Sex Assigned at Not on file Legal Sex Female 3:17 AM MANAGER INTERFACE Gender Identity Not on file Sexual Orientation Not on file documented as of this encounter Plan of Treatment Not on file documented as of this encounter Visit Diagnoses Diagnosis Acute pharyngitis- Primary documented in this encounter Care Teams Top Lifter Relationship Specialty Start Date End Date Geraldine Linares MD [address] [facility] [place] [address] PCP - General Family Practice 01/20/14 documented as of this encounter
--- OUTSIDE RECORDS SUMMARY | 2025-06-20 10:20 | XMS_ITS | Encounter Summary ---
Author Organization [facility] Address [address] [place] [address] Care Team Providers Care Process Coach Name Role Phone Geraldine Linares MD Primary Care Provider [phone] Encounter Details Date Type Department Care Team (Latest Contact Info) Description 01/22/2007 Outpatient [facility] [address] [place] [address] Shanthi Hi, PSYCHODRAMATIST [address] [place] [phone] Other General Medical Examination for Administrative Purposes (Primary Dx) Social History Tobacco Use Types Packs/Day Years Used Date Smoking Tobacco: Never Assessed Comments Unknown Sex and Gender Information Value Date Recorded Sex Assigned at Not on file Legal Sex Female 3:17 AM OVERHEAD FOREMAN Gender Identity Not on file Sexual Orientation Not on file documented as of this encounter Plan of Treatment Not on file documented as of this encounter Visit Diagnoses Diagnosis Other general medical examination for administrative purposes- Primary documented in this encounter Care Teams Process Coach Relationship Specialty Start Date End Date Geraldine Linares MD [address] [facility] [address] [place] [address] PCP - General Family Practice 01/20/14 documented as of this encounter
--- OUTSIDE RECORDS SUMMARY | 2025-06-20 10:20 | XMS_ITS | Encounter Summary ---
Author Organization [facility] Address [address] [place] [address] Care Team Providers Care Ground Layer Name Role Phone Geraldine Linares MD Primary Care Provider Encounter Details Date Type Department Care Team (Latest Contact Info) Description 02/06/2006 Outpatient Historical [facility] [address] [place] [address] Shanthi Hi, CLINICAL EDUCATION SPECIALIST [address] [place] [phone] Superficial Injury NEC (Primary Dx) Social History Tobacco Use Types Packs/Day Years Used Date Smoking Tobacco: Never Assessed Comments Unknown Sex and Gender Information Value Date Recorded Sex Assigned at Not on file Legal Sex Female 3:17 AM LEGISLATIVE CORRESPONDENT Gender Identity Not on file Sexual Orientation Not on file documented as of this encounter Plan of Treatment Not on file documented as of this encounter Visit Diagnoses Diagnosis Other and unspecified superficial injury of other, multiple, and unspecified sites, without mention of infection- Primary documented in this encounter Care Teams Ground Layer Relationship Specialty Start Date End Date Geraldine Linares MD [address] [place] [address] PCP - General Family Practice 01/20/14 documented as of this encounter
--- OUTSIDE RECORDS SUMMARY | 2025-06-20 10:21 | XMS_ITS | Encounter Summary ---
Author Organization [facility] Address [address] [place] [address] Care Team Providers Care Cable Installation Technician Name Role Phone Arnoldo Avery MD Primary Care Provider [phone] Encounter Details Date Type Department Care Team (Late st Contact Info) Description 06/11/2025 Orders Only [address] [address] Meron Jones FNP [address] [address] Complication related to , first trimester Social History Tobacco Use Types Packs/Day Years [...] AM CDT Legal Sex Female 12:05 PM BUSINESS INSIGHT AND ANALYTICS MANAGER Gender Identity Female 06/04/2025 11:50 AM CDT Sexual Orientation Not on file documented as of this encounter Plan of Treatment Upcoming Encounters Date Type Department Care Team (Late Contact Info) Description 06/21/2025 Orders Only [address] [address] Meron Jones FNP [address] [place] [address] 07/01/2025 12:00 PM CDT Appointment [facility] [address] [facility] 60 [place] [phone] Meron Jones FNP [address] [place] [address] 11/19/2025 3:40 PM BUSINESS INSIGHT AND ANALYTICS MANAGER Office Visit [facility] [address] [place] [address] Meron Jones FNP [address] [place] [address] 05/03/2026 3:00 PM CDT Office Visit [facility] [address] [place] [address] Meron Jones FNP [address] [place] [address] documented as of this encounter Procedures Procedure Name Priority Date/Time Associated Diagnosis Comments US OB LESS THAN 14 WKS SINGLE + TRANSVAG Stat 06/11/2025 Complication related to , first trimester documented in this encounter Results * US OB LESS THAN 14 WKS SINGLE + TRANSVAG (06/11/2025) Anatomical Region Laterality Modality Pelvis Ultrasound us Meron Jones [facility] US ORDERABLES Final Re sult documented in this encounter Visit Diagnoses Diagnosis Complication related to , first trimester documented in this encounter Additional Health Concerns Assessment Noted Time PHQ-9 Depression Total Score: 1 10/13/19 25 1:49 PM BUSINESS INSIGHT AND ANALYTICS MANAGER documented as of this encounter Care Teams Cable Installation Technician Relationship Specialty Start Date End Date Arnoldo Avery MD [address] [phone] PCP - General Family Practice 04/05/23 documented as of this encounter
--- OUTSIDE RECORDS SUMMARY | 2025-06-20 10:21 | XMS_ITS | Clinical Summary ---
Author Organization [facility] Address [address] [place] [address] Care Team Providers Care Kai Whakaruruhau Name Role Phone Geraldine Linares MD Primary Care Provider [phone] Allergies No known active allergies Medications Polycarbophil [...] on file Legal Sex Female 3:17 AM DIRECTOR OF HOSPITALITY Gender Identity Not on file Sexual Orientation Not on file Occupation Industry Job Start Date Job End Date Not on file Not on file Not on file Not on file Last Filed Vital Signs Vital Sign Reading Time Taken Comments Blood Pressure 98/54 08/09/2015 3:15 PM DIRECTOR OF HOSPITALITY Pulse 84 08/09/2015 3:15 PM DIRECTOR OF HOSPITALITY Temperature 37.1 C (98.7 F) 08/09/2015 3:15 PM DIRECTOR OF HOSPITALITY Respiratory Rate 16 08/09/2015 3:15 PM DIRECTOR OF HOSPITALITY Oxygen Saturation 99% 08/09/2015 3:15 PM DIRECTOR OF HOSPITALITY Inhaled Oxygen Concentration - - Weight 44.5 kg (98 lb) 08/09/2015 3:15 PM DIRECTOR OF HOSPITALITY Height 147.3 cm (4' 10 ) 08/09/2015 3:15 PM DIRECTOR OF HOSPITALITY Body Mass Index 20.48 08/09/2015 3:15 PM DIRECTOR OF HOSPITALITY Plan of Treatment Health Maintenance Due Date Last Done Comments HEPATITIS B VACCINES (3 of 3 - 3-dose series) 05/30/2005 04/04/2005, 01/12/2005 CHLAMYDIA SCREENING (ANNUAL) 11-24 YEARS 2015 DTAP/TDAP/TD VACCINES (5 - Tdap) 2015 11/22/2009, 05/12/2009, 04/04/2005, Additional history exists HPV VACCINES (1 - 3-dose series) 2019 Preventative Visit-Managed Medicaid 2023 11/22/2009, 2004 INFLUENZA VACCINE (#1) 2025 Insurance [place]ICAID [place] Care Teams Kai Whakaruruhau Relationship Specialty Start Date End Date Geraldine Linares MD [facility] [address] [phone] PCP - General Family Practice 01/20/14
--- OUTSIDE RECORDS SUMMARY | 2025-06-20 10:21 | XMS_ITS | Encounter Summary ---
Author Organization [facility] Address [address] [place] [address] Care Team Providers Care Pilot Name Role Phone Arnoldo Avery MD Primary Care Provider [phone] Encounter Details Date Type Department Care Team (Late Contact Info) Description 06/14/2025 Orders Only [address] [address] Meron Jones FNP [address] [address] Social History Tobacco Use Types [...] AM CDT Legal Sex Female 12:05 PM DIET AIDE Gender Identity Female 06/04/2025 11:50 AM CDT Sexual Orientation Not on file documented as of this encounter Plan of Treatment Upcoming Encounters Date Type Department Care Team (Late Contact Info) Description 06/21/2025 Orders Only [address] [address] Meron Jones FNP [address] [place] [phone] 07/01/2025 12:[address] [facility] [address] [place] [id number] Meron Jones, [facility] [address] [place] [address] 11/19/2025 3:40 PM DIET AIDE Office Visit [facility] [address] [place] [address] Meron Jones, [facility] [address] [place] [address] 05/03/2026 3:00 PM CDT Office Visit [facility] [address] [place] [address] Meron Jones, [facility] [address] [place] [address] documented as of this encounter Procedures Procedure Name Priority Date/Time Associated Diagnosis Comments HCG QUANTITATIVE, BLOOD Routine 06/12/2025 6:58 AM CDT documented in this encounter Results * HCG QUANTITATIVE, BLOOD (06/12/2025 6:58 AM CDT) HCG QUANT, BLOOD 36789 mIU/mL [facility] Comment: Gestational Age Expected hCG values (mIU/mL) <1 Week: 5-50 1-2 Weeks: 50-500 2-3 Weeks: 100-5000 3-4 Weeks: 500-31749 4-5 Weeks: 1000-67063 5-6 Weeks: [address] 6-8 Weeks: [address] 2-3 Months: [address] The table above provides only a very rough estimate of gestational age and should be used only in conjunction with other methods for establishing gestational age. Much more reliable and accurate estimations of gestational age may be obtained by using LMP or ultrasound. Values from different assay methods may vary. The use of this assay to monitor or to diagnose patients with cancer or any condition unrelated to has not been cleared or approved by the FDA or the unloader operator of the assay. Test Performed at: [facility] [address] [place] [address] Janki Sanches MD Blood 06/12/2025 6:58 AM CDT 06/17/2025 2:29 PM CDT Meron Jones [facility] CHEMISTRY ORDERABLES Fin al Result [facility] [phone] [facility] [address] [place] [address] documented in this encounter Visit Diagnoses Not on filedocumented in this encounter Additional Health Concerns Assessment Noted Time PHQ-9 Depression Total Score: 1 10/13/19 25 1:49 PM DIET AIDE documented as of this encounter Care Teams Pilot Relationship Specialty Start Date End Date Arnoldo Avery MD [address] [address] PCP - General Family Practice 04/05/23 documented as of this encounter
--- OUTSIDE RECORDS SUMMARY | 2025-06-20 10:21 | XMS_ITS | Encounter Summary ---
Author Organization [facility] Address [address] [place] [address] Care Team Providers Care Dust Sampler Name Role Phone Arnoldo Avery MD Primary Care Provider [phone] Encounter Details Date Type Department Care Team (Late Contact Info) Description 06/10/2025 Lab Requisition [facility] [place] [address] [address] Meron Jones [facility] [address] [address] related conditions, unspecified, first trimester Social History Tobacco Use Types [...] AM CDT Legal Sex Female 12:05 PM DIRECTOR OF EDUCATION Gender Identity Female 06/04/2025 11:50 AM CDT Sexual Orientation Not on file documented as of this encounter Plan of Treatment Upcoming Encounters Date Type Department Care Team (Late Contact Info) Description 06/21/2025 Orders Only [facility] [place] [address] [address] Meron Jones, [facility] [address] [place] [address] 07/01/2025 12:00 PM CDT Appointment [facility] [address] [facility] [address] [place] [phone] Karen Meron Key, [facility] [address] [place] [address] 11/19/2025 3:40 PM DIRECTOR OF EDUCATION Office Visit [facility] [address] [place] [address] Meron Jones Yesi, [facility] [address] [place] [address] 05/03/2026 3:00 PM CDT Office Visit [facility] [address] [place] [address] Meron Jones Yesi, [facility] [address] [place] [address] documented as of this encounter Procedures Procedure Name Priority Date/Time Associated Diagnosis Comments HCG QUANTITATIVE, BLOOD Stat 06/10/2025 1:33 PM CDT related conditions, unspecified, first trimester documented in this encounter Results * (ABNORMAL) HCG QUANTITATIVE, BLOOD (06/10/2025 1:33 PM CDT) HCG QUANT, BLOOD 4,887.0(H ) <=1.0 mIU/mL 06/10/2025 1:57 PM CDT [facility] Comment: Male <= 2 mIU/mL Female Non [...] 18 Weeks 9649 - 55,271 mIU/mL Blood Collection / Unknown 06/10/2025 1:33 PM CDT 06/10/2025 1:33 PM CDT Meron Jones CHIEF MINISTER CHEMISTRY ORDERABLES Fin al Result [facility] # [id number] [address] [address] documented in this encounter Visit Diagnoses Diagnosis related conditions, unspecified, first trimester documented in this encounter Additional Health Concerns Assessment Noted Time PHQ-9 Depression Total Score: 1 10/13/19 25 1:49 PM DIRECTOR OF EDUCATION documented as of this encounter Care Teams Dust Sampler Relationship Specialty Start Date End Date Arnoldo Avery MD [address] [phone] PCP - General Family Practice 04/05/23 documented as of this encounter
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
--- OUTSIDE RECORDS SUMMARY | 2025-06-20 10:21 | XMS_ITS | Encounter Summary ---
Author Organization [facility] Address [address] [place] [address] Care Team Providers Care Curtain Fitter Name Role Phone Arnoldo Avery MD Primary Care Provider [phone] Encounter Details Date Type Department Care Team (Late st Contact Info) Description 06/18/2025 Results Follow-Up [address] [address] Meron Jones FNP [address] [address] HCG QUANTITATIVE, BLOOD Social History Tobacco Use Types Packs/Day Years [...] AM CDT Legal Sex Female 12:05 PM OFFICE SUPERVISOR Gender Identity Female 06/04/2025 11:50 AM CDT Sexual Orientation Not on file documented as of this encounter Plan of Treatment Upcoming Encounters Date Type Department Care Team (Late Contact Info) Description 06/21/2025 Orders Only [address] [address] Meron Jones FNP [address] [place] [address] 07/01/2025 12:00 PM CDT Appointment [facility] [place] [address] [facility] [address] [place] [phone] Meron Jones [facility] [address] [facility] [address] [place] [address] 11/19/2025 3:40 PM OFFICE SUPERVISOR Office Visit [facility] [address] [place] [address] Meron Jones [facility] [address] [place] [address] 05/03/2026 3:00 PM CDT Office Visit [facility] [address] [place] [address] Meron Jones, [facility] [address] [place] [address] documented as of this encounter Visit Diagnoses Not on filedocumented in this encounter Additional Health Concerns Assessment Noted Time PHQ-9 Depression Total Score: 1 10/13/19 25 1:49 PM OFFICE SUPERVISOR documented as of this encounter Care Teams Curtain Fitter Relationship Specialty Start Date End Date Arnoldo Avery MD [address] [place] [address] PCP - General Family Practice 04/05/23 documented as of this encounter
--- NOTE | 2025-06-20 10:26 | USR_ITS ---
PROCEDURE INFORMATION: Exam: US , Transvaginal Exam date and time: 06/20/2025 10:53 AM Age: 19 years old Clinical indication: Lmp or gestational age (in weeks): 6w2d by US; Antepartum complications; Bleeding; ; Additional info: ; Bleeding; 7 wks via history LABS AND CLINICAL REPORTS: Gestational age (Established): 6 w 6 d Estimated due date (Established): 02/07/2026 TECHNIQUE: Imaging protocol: Real-time transvaginal obstetrical ultrasound of the maternal pelvis with image documentation. Transvaginal imaging was used for better evaluation of the fetus, adnexa, and/or cervix. COMPARISON: US OB <=14 wk fetus w transvag 06/11/2025 6:59 AM FINDINGS: Gestation: Yolk sac measures 2.9 mm. pole is present, with crown-rump length of 5.7 mm. Consistent with gestational age of 6 weeks and 2 days. heart rate: 124 bpm MATERNAL: Cervix: Cervical length measures 4.3 cm. Nabothian cysts in the cervix. Right ovary/adnexa: Right ovary with corpus luteum cyst. Unremarkable left ovary. Right adnexal tubelike anechoic structure, measuring 9 x 5 mm and 20 x 8 mm where partially seen. Possible dilated fallopian tube. US/US OB transvaginal [id number] IMPRESSION: 1. Single live fetus with estimated gestational age of 6 weeks and 2 days . Estimated due date of 02/11/2026 . 2. Corpus luteum cyst in the right ovary. Right adnexal tubelike anechoic structure is nonspecific. May represent a dilated fallopian tube.
--- NOTE | 2025-06-20 10:32 | ED_ITS ---
HPI - Female Genitourinary 2 General: Chief complaint: Vaginal Bleeding Stated complaint: 7 weeks preg, vaginal bleeding Time Seen by Provider: 06/20/25 10:19 Source: patient and family Mode of arrival: ambulatory Limitations: no limitations History of Present Illness: Patient is a 19-year-old female presents to ED today along with her mother here for concerns of vaginal bleeding. She states she is 6w3d . States she began having some bright red vaginal bleeding with clots this morning. She reports previous miscarriages so was concerned this could be happening. She has also been diagnosed with ovarian cysts and states these have ruptured in the past causing vaginal bleeding. She was seen here a few weeks ago with a very early . She states she has been having her hCG levels tracked through her primary care provider. Last hCG was roughly 25,000 a few days ago. She has had ultrasounds but they have all been too early to see heart tones. They reportedly have seen gestational and yolk sac up until this point. MD elicited complaint: vaginal bleeding and possible miscarriage Pertinent past history: prior miscarriages Onset (ago): hour(s) Severity: mild Vaginal discharge: none Vaginal bleeding: scant, bright red and clots Exacerbating factors: none Relieving factors: none Associated symptoms: Deny abdominal pain, headache(s), nausea or vaginal discharge Treatment prior to arrival: none Sexual activity: Yes Patient : Yes Related Data Home Medications ?Medication ?Instructions ?Recorded ?Confirmed fluoxetine 20 mg capsule 20 mg PO DAILY 06/05/2505/25 ibuprofen 200 mg tablet (Advil) 400 mg PO Q6H PRN Feve r Or Pain 06/05/25 06/20/25 vitamins no.167-folic 1 tab PO DAILY 06/20/25 06/20/25 acid 400 mcg-dha 25 mg chewable tablet (One-A-Day ) Previous Rx's ?Medication ?Instructions ?Recorded ondansetron 8 mg disintegrating 8 mg PO .q6 PRN nausea and 03/02/24 tablet vomiting #14 tabs promethazine 25 mg tablet 25 mg PO Q6H PRN nausea and 06/05/25 vomiting #20 tabs Allergies Allergy/AdvReac Type Severity Reaction Status Date / Time No Known Allergies Allergy Verified 06/20/25 10:28 Review of Systems 2 Const: Denies: fever(s), chills, body aches, fatigue or malaise Card: Denies: chest pain Resp: Denies: dyspnea GI: Denies: abdominal pain, nausea, vomiting, diarrhea or change in bowel habits : Reports: vaginal bleeding; Denies: flank pain, difficulty voiding, dysuria, urinary frequency, urinary urgency, urinary hesitancy, genital pruritis, vaginal odor, vaginal discharge or pelvic pain Musc: Denies: neck pain, back pain, extremity pain, extremity swelling, joint pain or joint swelling Skin/Breast: Denies: rash Neuro: Denies: headache(s), numbness in extremities, weakness in extremities or sensory changes Physical Exam 2 Const: COMMON NORMALS: no acute distress, average body habitus, patient oriented x3, no limitations, healthy appearing, alert and well nourished G ENERAL APPEARANCE: cooperative ORIENTATION/CONSCIOUSNESS: Yes awake, Yes oriented to person, Yes oriented to place and Yes oriented to time Resp: COMMON NORMALS: normal respiratory effort and clear to auscultation bilaterally AUSCULTATION: clear to auscultation bilaterally Cardio: COMMON NORMALS: regular rate and regular rhythm RATE: regular rate RHYTHM: regular rhythm GI: COMMON NORMALS: Normal to inspection, nondistended, normoactive bowel sounds present, Soft to palpation, non-tender, No hepatosplenomegaly present and no masses PALPATION: Yes Soft to palpation and Yes No hepatosplenomegaly present : COMMON NORMALS: Yes no CVA tenderness BLADDER/KIDNEY EXAM: Yes no CVA tenderness Back/Pelvis: COMMON NORMALS: no CVA tenderness Extremity: GENERAL: Yes normal exam except as noted Neuro: COMMON NORMALS: patient oriented x3 SENSORIUM/ORIENTATION: Yes alert, Yes oriented to person, Yes oriented to place and Yes oriented to time Course 2 Vital Signs: Vital signs: Vital Signs Temperature 98.3 F 06/20/25 10:20 Pulse Rate 70 06/20/25 10:20 Blood Pressure 125/63 06/20/25 12:00 Pulse Oximetry 98 06/20/25 12:00 Oxygen Delivery Me thod Room Air 06/20/25 10:20 MDM - Female Medical Decision Making US obtained showing a heart rate of 125. Patient is extremely happy to hear this. hCG now is over 42,000-this seems to be rising appropriately. She will continue to follow-up with her primary care provider. She does have a women's health appointment scheduled for July 13 and as of now plans on using them for OB care. She does not require RhoGAM. Medical Records I reviewed the patient's medical records. Lab Data I reviewed the patient's lab results. 06/20/25 10:50 Laboratory Results WBC 4.73 10^3/uL (4.5-13.0) 06/20/25 10:50 RBC 4.58 10^6/uL (3.85-5.65) 06/20/25 10:50 Hgb 11.90 g/dL (12.4-14.8) L 06/20/25 10:50 Hct 35.9 % (36-47) L 06/20/25 10:50 MCV 78.4 fl (85-98) L 06/20/25 10:50 MCH 26.0 pg (27-33) L 06/20/25 10:50 MCHC 33.1 g/dL (30-55) 06/20/25 10:50 RDW 14.1 % (12.1-15.1) 06/20/25 10:50 Plt Count 255 10^3/cmm (157-399) 06/20/25 10:50 MPV 10.6 fL (7.4-10.4) H 06/20/25 10:50 Neut % (Auto) 72.4 % 06/20/25 10:50 Lymph % (Auto) 17.3 % 06/20/25 10:50 Lagrange % (Auto) 7.8 % 06/20/25 10:50 Eos % (Auto) 1.7 % 06/20/25 10:50 Baso % (Auto) 0.6 % 06/20/25 10:50 Neut # (Auto) 3.42 10^3/uL (1.8-8.0) 06/20/25 10:50 Lymph # (Auto) 0.8 10^3/uL (1.5-6.5) L 06/20/25 10:50 Lagrange # (Auto) 0.4 10^3/uL (0.2-0.9) 06/20/25 10:50 Eos # (Auto) 0.1 10^3/uL (0.0-0.8) 06/20/25 10:50 Baso # (Auto) 0.0 10^3/uL (0.0-0.1) 06/20/25 10:50 Nucleated RBC % (auto) 0 % 06/20/25 10:50 Nucleated RBCs # 0.0 /100WBC 06/20/25 10:50 Ser , Semi-Qnt 80611.00 mIU/mL 06/20/25 10:50 Blood Type AB Positive 06/20/25 10:50 Rho(D) Type Rh positive 06/20/25 10:50 XR interpretation done by ED provider, pending radiology final review (per [facility]-live IUP with heart rate around 125) Discharge Plan Discharge Patient Disposition: Home Clinical Impression: Threatened miscarriage Condition: Stable Prescriptions: No Action ondansetron 8 mg tablet,disintegrating 8 mg PO .q6 PRN (Reason: nausea and vomiting) Qty: 14 0RF ibuprofen [Advil] 200 mg Tablet 400 mg PO Q6H PRN (Reason: Fever Or Pain) fluoxetine 20 mg capsule 20 mg PO DAILY promethazine 25 mg tablet 25 mg PO Q6H PRN (Reason: nausea and vomiting) Qty: 20 0RF One-A-Day 400 mcg- 25 mg Tablet,Chewable 1 tab PO DAILY Discharge Orders: Discharge ED (Routine); Ordered 06/20/25 Ordered By: Hermelinda Yi Referrals: Meron Jones [Primary Care Provider, Family Practice] Patient Instructions: Threatened Miscarriage (ED), Patient Portal & Payam Instructions Activity Restrictions/Additional Instructions: As we discussed, ultrasound today did show a heart rate of around 125. Your hCG seems to continue to rise and is now over 42,000. Please continue to follow-up with your primary care provider. Will be for follow-up with [facility] Women's Health at your currently scheduled appointment. You may return to the emergency department for onset of severe vaginal bleeding (soaking more than 1 pad an hour), lightheadedness/dizziness, severe pain, or any other concerns you may have. Print Language: Burkinan Coding Level of Care Code ED Cripple Worker for Padmini Ortiz
[2025-06-20 10:58] LABS: Hematocrit 35.9 % (36-47); Hemoglobin 11.90 g/dL (12.4-14.8); Mean Corpuscular HGB Conc 33.1 g/dL (30-55); Mean Corpuscular Hemoglobin 26.0 pg (27-33); Mean Corpuscular Volume 78.4 fl (85-98); Nucleated Red Blood Cells % 0 %; Platelet Count 255 10^3/cmm (157-399); Red Blood Count 4.58 10^6/uL (3.85-5.65); White Blood Count 4.73 10^3/uL (4.5-13.0)
[2025-06-20 11:39] VITALS: BP 118/73; O2SAT 94
[2025-06-20 12:00] VITALS: BP 125/63; O2SAT 98
[2025-06-20 12:27] VITALS: BP 125/63; PULSE 72; RESP 16; O2SAT 98
== END 2025-06-20 12:27 | disposition home or self-care (01) ==
PROVIDERS: Emergency Provider Physician Assistant; PCP Registered Nurse
DX: O20.0 Threatened abortion (principal); Z3A.01 Less than 8 weeks gestation of pregnancy
CPT/HCPCS: 36415; 76817; 84702; 85025; 86900; 99284

== ENCOUNTER → 2025-07-28 08:34 | Outpatient (BNVA) | payer OTHER, MEDICAID, SELFPAY | PROVIDERS: PCP Registered Nurse; Visit Provider Nurse Practitioner Women's Health | DX: Z34.91 Encounter for supervision of normal pregnancy, unspecified, first trimester (principal); Z3A.11 11 weeks gestation of pregnancy | CPT/HCPCS: 80307; 84315; 84443; 85025; 86592; 86762; 86803; 86850; 86900; 87086; 87340; 87491; 87591; 87661; 87806 ==

== ENCOUNTER → 2025-08-04 10:23 | Outpatient (BNVA) | payer OTHER, MEDICAID, SELFPAY | PROVIDERS: PCP Registered Nurse; Visit Provider Obstetrics & Gynecology | DX: Z34.91 Encounter for supervision of normal pregnancy, unspecified, first trimester (principal); Z3A.12 12 weeks gestation of pregnancy | CPT/HCPCS: 84315 ==

== ENCOUNTER 2025-08-06 07:03 | Emergency (ER) | payer OTHER, MEDICAID, SELFPAY ==
--- OUTSIDE RECORDS SUMMARY | 2025-08-06 07:07 | XMS_ITS | Encounter Summary ---
Author Organization [facility] Address [address] [place] [address] Care Team Providers Care Sustain Engineer Name Role Phone Arnoldo Avery MD Primary Care Provider [phone] Encounter Details Date Type Department Care Team (Late Contact Info) Description 06/24/2025 Results Follow-Up [address] [phone] Meron Jones, [facility] [address] [address] HCG QUANTITATIVE, BLOOD Social History [...] AM CDT Legal Sex Female 12:05 PM RIGGING AND CONTROLS AIRCRAFT MECHANIC Gender Identity Female 06/04/2025 11:50 AM CDT Sexual Orientation Not on file documented as of this encounter Plan of Treatment Upcoming Encounters Date Type Department Care Team (Late Contact Info) Description 11/19/2025 3:40 PM RIGGING AND CONTROLS AIRCRAFT MECHANIC Office Visit [address] [phone] Meron Jones [facility] [address] [place] [address] 05/03/2026 3:00 PM CDT Office Visit [facility] [address] [place] [address] Meron Jones [facility] [address] [place] [address] documented as of this encounter Visit Diagnoses Not on filedocumented in this encounter Additional Health Concerns Assessment Noted Time PHQ-9 Depression Total Score: 1 10/13/19 25 1:49 PM RIGGING AND CONTROLS AIRCRAFT MECHANIC documented as of this encounter Care Teams Sustain Engineer Relationship Specialty Start Date End Date Arnoldo Avery MD [address] [place] [address] PCP - General Family Practice 04/05/23 documented as of this encounter
--- OUTSIDE RECORDS SUMMARY | 2025-08-06 07:08 | XMS_ITS | Encounter Summary ---
Author Organization [facility] Address [address] [place] [address] Care Team Providers Care Agile Scrum Coach Name Role Phone Geraldine Linares MD Primary Care Provider Encounter Details Date Type Department Care Team (Latest Contact Info) Description 2004 Outpatient Historical [facility] Medicine [place] [address] [phone] Arlette Bourne MD [address] [place] [address] Routine child health exam (Primary Dx); TONGUE TIE Social History Tobacco Use Types Packs/Day Years Used Date Smoking Tobacco: Never Assessed Comments Unknown Sex and Gender Information Value Date Recorded Sex Assigned at Not on file Legal Sex Female 3:17 AM OBSTETRICS GYN Gender Identity Not on file Sexual Orientation Not on file documented as of this encounter Plan of Treatment Not on file documented as of this encounter Visit Diagnoses Diagnosis Routine child health exam- Primary Routine infant or child health check Tongue tie documented in this encounter Care Teams Agile Scrum Coach Relationship Specialty Start Date End Date Geraldine Linares MD [address] [facility] [address] [place] [phone] PCP - General Family Practice 01/20/14 documented as of this encounter
--- OUTSIDE RECORDS SUMMARY | 2025-08-06 07:08 | XMS_ITS | Encounter Summary ---
Author Organization [facility] Address [address] [place] [address] Care Team Providers Care Life Skills Educator Name Role Phone Geraldine Linares MD Primary Care Provider Encounter Details Date Type Department Care Team (Latest Contact Info) Description 05/29/2005 Outpatient Historical [facility] Medicine [place] [address] [phone] Shanthi Hi, TIRE SERVICE SUPERVISOR [address] [place] [address] OTITIS MEDIA NOS (Primary Dx) Social History Tobacco Use Types Packs/Day Years Used Date Smoking Tobacco: Never Assessed Comments Unknown Sex and Gender Information Value Date Recorded Sex Assigned at Not on file Legal Sex Female 3:17 AM CYANIDE POT HARDENER Gender Identity Not on file Sexual Orientation Not on file documented as of this encounter Plan of Treatment Not on file documented as of this encounter Visit Diagnoses Diagnosis Unspecified otitis media- Primary documented in this encounter Care Teams Life Skills Educator Relationship Specialty Start Date End Date Geraldine Linares MD [address] [phone] PCP - General Family Practice 01/20/14 documented as of this encounter
--- OUTSIDE RECORDS SUMMARY | 2025-08-06 07:08 | XMS_ITS | Encounter Summary ---
Author Organization [facility] Address [address] [place] [address] Care Team Providers Care Project Architect Name Role Phone Geraldine Linares MD Primary Care Provider Encounter Details Date Type Department Care Team (Latest Contact Info) Description 2004 Outpatient Historical [facility] Medicine [place] [address] [phone] Arlette Bourne MD [address] [place] [phone] Routine child health exam (Primary Dx) Social History Tobacco Use Types Packs/Day Years Used Date Smoking Tobacco: Never Assessed Comments Unknown Sex and Gender Information Value Date Recorded Sex Assigned at Not on file Legal Sex Female 3:17 AM EXAMINATION SCORER Gender Identity Not on file Sexual Orientation Not on file documented as of this encounter Plan of Treatment Not on file documented as of this encounter Visit Diagnoses Diagnosis Routine child health exam- Primary Routine infant or child health check documented in this encounter Care Teams Project Architect Relationship Specialty Start Date End Date Geraldine Linares MD [address] [facility] [place] [phone] PCP - General Family Practice 01/20/14 documented as of this encounter
--- OUTSIDE RECORDS SUMMARY | 2025-08-06 07:08 | XMS_ITS | Encounter Summary ---
Author Organization [facility] Address [address] [place] [address] Care Team Providers Care Drawing Tender Name Role Phone Geraldine Linares MD Primary Care Provider Encounter Details Date Type Department Care Team (Late st Contact Info) Description 11/24/2007 Outpatient Historical [address] [phone] Shanthi Hi FNP [address] [place] [phone] Social History Tobacco Use Types Packs/Day Years Used Date Smoking Tobacco: Never Assessed Comments Unknown Sex and Gender Information Value Date Recorded Sex Assigned at Not on file Legal Sex Female 3:17 AM FURNITURE SALES CONSULTANT Gender Identity Not on file Sexual [...] week or before as needed. SAULO Villarreal [facility] Electronically Signed by SAULO Villarreal 12/02/2007 16:52 , tony Montiel Document #: [id number] cc: documented in this encounter Plan of Treatment Not on file documented as of this encounter Procedures Procedure Name Priority Date/Time Associated Diagnosis Comments POC RAPID STREP A ANTIGEN Stat 11/24/2007 2:30 PM FURNITURE SALES CONSULTANT documented in this encounter Results * POC RAPID STREP A (11/24/2007 2:30 PM FURNITURE SALES CONSULTANT) RAPID STREP NEGATIVE NEG [facility] PERFORMED IN OFFICE 11/24/2007 2:30 PM FURNITURE SALES CONSULTANT 11/24/2007 2:35 PM FURNITURE SALES CONSULTANT us German Ramos DO POINT OF CARE TESTING Final Res ult [facility] PERFORMED IN OFFICE documented in this encounter Visit Diagnoses Not on filedocumented in this encounter Care Teams Drawing Tender Relationship Specialty Start Date End Date Geraldine Linares MD [address] [phone] PCP - General Family Practice 01/20/14 documented as of this encounter
--- OUTSIDE RECORDS SUMMARY | 2025-08-06 07:08 | XMS_ITS | Encounter Summary ---
Author Organization [facility] Address [address] [place] [address] Care Team Providers Care Sweat Band Sewer Name Role Phone Geraldine Linares MD Primary Care Provider Encounter Details Date Type Department Care Team (Latest Contact Info) Description 2004 Outpatient Historical [facility] Medicine [place] [address] [phone] Arlette Bourne MD [address] [place] [address] ACUTE URI NOS (Primary Dx); TONGUE TIE Social History Tobacco Use Types Packs/Day Years Used Date Smoking Tobacco: Never Assessed Comments Unknown Sex and Gender Information Value Date Recorded Sex Assigned at Not on file Legal Sex Female 3:17 AM VETERINARY PRACTITIONER Gender Identity Not on file Sexual Orientation Not on file documented as of this encounter Plan of Treatment Not on file documented as of this encounter Visit Diagnoses Diagnosis Acute upper respiratory infections of unspecified site- Primary Tongue tie documented in this encounter Care Teams Sweat Band Sewer Relationship Specialty Start Date End Date Geraldine Linares MD [address] [facility] [address] [place] [phone] PCP - General Family Practice 01/20/14 documented as of this encounter
--- OUTSIDE RECORDS SUMMARY | 2025-08-06 07:08 | XMS_ITS | Encounter Summary ---
Author Organization [facility] Address [address] [place] [address] Care Team Providers Care Wood Turning Lathe Operator Name Role Phone Arnoldo Avery MD Primary Care Provider [phone] Encounter Details Date Type Department Care Team (Late Contact Info) Description 10/14/2024 Results Follow-Up [facility] Emergency Medicine [address] [address] Miesha Wilkins RN GC/CHLAMYDIA, UROGENITAL Social History Tobacco Use [...] AM CDT Legal Sex Female 12:05 PM HARVESTING MANAGER Gender Identity Female 06/04/2025 11:50 AM CDT Sexual Orientation Not on file documented as of this encounter Plan of Treatment Upcoming Encounters Date Type Department Care Team (Late Contact Info) Description 11/19/2025 3:40 PM HARVESTING MANAGER Office Visit [facility] [address] [phone] Meron Jones, [facility] [address] [address] 05/03/2026 3:00 PM CDT Office Visit [facility] [address] [phone] Meron Jones FNP [address] [phone] documented as of this encounter Visit Diagnoses Not on filedocumented in this encounter Additional Health Concerns Assessment Noted Time PHQ-9 Depression Total Score: 1 10/13/19 25 1:49 PM HARVESTING MANAGER documented as of this encounter Care Teams Wood Turning Lathe Operator Relationship Specialty Start Date End Date Arnoldo Avery MD [address] [phone] PCP - General Family Practice 04/05/23 documented as of this encounter
--- OUTSIDE RECORDS SUMMARY | 2025-08-06 07:08 | XMS_ITS | Encounter Summary ---
Author Organization [facility] Address [address] [place] [address] Care Team Providers Care Cook Pie Name Role Phone Geraldine Linares MD Primary Care Provider Encounter Details Date Type Department Care Team (Latest Contact Info) Description 2004 [facility] [address] [place] [address] Shanthi Hi, FINANCIAL ACCOUNTING ANALYST [address] [place] [phone] Routine child health exam (Primary Dx) Social History Tobacco Use Types Packs/Day Years Used Date Smoking Tobacco: Never Assessed Comments Unknown Sex and Gender Information Value Date Recorded Sex Assigned at Not on file Legal Sex Female 3:17 AM SENIOR TAX ACCOUNTANT Gender Identity Not on file Sexual Orientation Not on file documented as of this encounter Plan of Treatment Not on file documented as of this encounter Visit Diagnoses Diagnosis Routine child health exam- Primary Routine infant or child health check documented in this encounter Care Teams Cook Pie Relationship Specialty Start Date End Date Geraldine Linares MD [address] [facility] [place] [phone] PCP - General Family Practice 01/20/14 documented as of this encounter
--- OUTSIDE RECORDS SUMMARY | 2025-08-06 07:09 | XMS_ITS | Encounter Summary ---
Author Organization [facility] Address [address] [place] [address] Care Team Providers Care Kindergarten Tutor Name Role Phone Geraldine Linares MD Primary Care Provider Encounter Details Date Type Department Care Team (Latest Contact Info) Description 06/12/2006 Outpatient Historical [facility] [address] [place] [address] Shanthi Hi, SYRUPER [address] [place] [phone] Acute Pharyngitis (Primary Dx) Social History Tobacco Use Types Packs/Day Years Used Date Smoking Tobacco: Never Assessed Comments Unknown Sex and Gender Information Value Date Recorded Sex Assigned at Not on file Legal Sex Female 3:17 AM NATIONAL PARK TOUR GUIDE Gender Identity Not on file Sexual Orientation Not on file documented as of this encounter Plan of Treatment Not on file documented as of this encounter Visit Diagnoses Diagnosis Acute pharyngitis- Primary documented in this encounter Care Teams Kindergarten Tutor Relationship Specialty Start Date End Date Geraldine Linares MD [address] [facility] [address] [place] [phone] PCP - General Family Practice 01/20/14 documented as of this encounter
--- OUTSIDE RECORDS SUMMARY | 2025-08-06 07:09 | XMS_ITS | Encounter Summary ---
Author Organization [facility] Address [address] [place] [address] Care Team Providers Care Supervisor Jewelry Department Name Role Phone Geraldine Linares MD Primary Care Provider Encounter Details Date Type Department Care Team (Latest Contact Info) Description 08/12/2006 Outpatient Historical [facility] [address] [place] [address] Shanthi Hi, RESOLUTION ANALYST [address] [place] [phone] Acute Pharyngitis (Primary Dx); Unspecified Otitis Media Social History Tobacco Use Types Packs/Day Years Used Date Smoking Tobacco: Never Assessed Comments Unknown Sex and Gender Information Value Date Recorded Sex Assigned at Not on file Legal Sex Female 3:17 AM TILE AND MARBLE SETTER Gender Identity Not on file Sexual Orientation Not on file documented as of this encounter Plan of Treatment Not on file documented as of this encounter Visit Diagnoses Diagnosis Acute pharyngitis- Primary Unspecified otitis media documented in this encounter Care Teams Supervisor Jewelry Department Relationship Specialty Start Date End Date Geraldine Linares MD [address] [facility] [address] [place] [phone] PCP - General Family Practice 01/20/14 documented as of this encounter
--- OUTSIDE RECORDS SUMMARY | 2025-08-06 07:09 | XMS_ITS | Encounter Summary ---
Author Organization [facility] Address [address] [place] [address] Care Team Providers Care Straddle Bug Operator Name Role Phone Arnoldo Avery MD Primary Care Provider [phone] Encounter Details Date Type Department Care Team (Late Contact Info) Description 07/02/2025 Results Follow-Up [address] [phone] Meron Jones, [facility] [address] [address] US OB LESS THAN 14 WKS SINGLE + TRANSVAG Social History Tobacco Use Types Packs/Day Years [...] AM CDT Legal Sex Female 12:05 PM NO BAKE MOLDER Gender Identity Female 06/04/2025 11:50 AM CDT Sexual Orientation Not on file documented as of this encounter Plan of Treatment Upcoming Encounters Date Type Department Care Team (Late Contact Info) Description 11/19/2025 3:40 PM NO BAKE MOLDER Office Visit [address] [phone] Meron Jones, [facility] [address] [place] [address] 05/03/2026 3:00 PM CDT [facility] Visit [facility] [address] [place] [phone] Meron Jones [facility] [address] [place] [phone] documented as of this encounter Visit Diagnoses Not on filedocumented in this encounter Additional Health Concerns Assessment Noted Time PHQ-9 Depression Total Score: 1 10/13/19 25 1:49 PM NO BAKE MOLDER documented as of this encounter Care Teams Straddle Bug Operator Relationship Specialty Start Date End Date Arnoldo Avery MD [address] [place] [phone] PCP - General Family Practice 04/05/23 documented as of this encounter
--- OUTSIDE RECORDS SUMMARY | 2025-08-06 07:09 | XMS_ITS | Encounter Summary ---
Author Organization [facility] Address [address] [place] [address] Care Team Providers Care Sub Master Name Role Phone Geraldine Linares MD Primary Care Provider Encounter Details Date Type Department Care Team (Latest Contact Info) Description 04/10/2006 Outpatient Historical [facility] [address] [place] [address] Shanthi Hi, NETWORK INTERN [address] [place] [phone] Acute Upper Respiratory Infections of Unspecified Site (Primary Dx) Social History Tobacco Use Types Packs/Day Years Used Date Smoking Tobacco: Never Assessed Comments Unknown Sex and Gender Information Value Date Recorded Sex Assigned at Not on file Legal Sex Female 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
--- OUTSIDE RECORDS SUMMARY | 2025-08-06 07:09 | XMS_ITS | Encounter Summary ---
Author Organization [facility] Address [address] [place] [address] Care Team Providers Care Printing Press Machinist Name Role Phone Geraldine Linares MD Primary Care Provider [phone] Encounter Details Date Type Department Care Team (Latest Contact Info) Description 11/07/2006 Outpatient Historical [facility] Medicine [place] [address] [phone] Shanthi Hi, OFFICE HELPER CLERICAL [address] [place] [phone] Other Conjunctivitis (Primary Dx) Social History Tobacco Use Types Packs/Day Years Used Date Smoking Tobacco: Never Assessed Comments Unknown Sex and Gender Information Value Date Recorded Sex Assigned at Not on file Legal 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
--- OUTSIDE RECORDS SUMMARY | 2025-08-06 07:09 | XMS_ITS | Encounter Summary ---
Author Organization [facility] Address [address] [place] [address] Care Team Providers Care Aviation Maintenance Technician Name Role Phone Geraldine Linares MD Primary Care Provider Encounter Details Date Type Department Care Team (Latest Contact Info) Description 01/22/2007 Outpatient Historical [facility] [address] [place] [address] Shanthi Hi, COMMUNITY ORGANIZATION WORKER [address] [place] [phone] Other General Medical Examination for Administrative Purposes (Primary Dx) Social History Tobacco Use Types Packs/Day Years Used Date Smoking Tobacco: Never Assessed Comments Unknown Sex and Gender Information Value Date Recorded Sex Assigned at Not on file Legal Sex Female 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
--- OUTSIDE RECORDS SUMMARY | 2025-08-06 07:09 | XMS_ITS | Encounter Summary ---
Author Organization [facility] Address [address] [place] [address] Care Team Providers Care Fudge Candy Maker Name Role Phone Arnoldo Avery MD Primary Care Provider [phone] Encounter Details Date Type Department Care Team ([facility] Contact Info) Description 04/05/2023 Lab Requisition [facility] Laboratory Services [place] [address] [facility] 60 [place] [address] Meron Jones, [facility] [address] [place] [address] Encounter for test, result positive Social History [...] AM CDT Legal Sex Female 12:05 PM MOUNTER HAND Gender Identity Female 06/04/2025 11:50 AM CDT [...] Care Team (Late st Contact Info) Description 11/19/2025 3:40 PM MOUNTER HAND Office Visit [facility] [address] [place] [address] Meron Jones PLASTIC JOINT MAKER [address] [place] [address] 05/03/2026 3:00 PM CDT Office Visit [facility] [address] [place] [address] Meron Jones FNP [address] [place] [address] documented as of this encounter Procedures Procedure Name Priority Date/Time Associated Diagnosis Comments RH (D) TYPE Stat 04/05/2023 1:56 PM CDT Encounter for test, result positive HCG QUANTITATIVE, BLOOD Stat 04/05/2023 1:56 PM CDT Encounter for test, result positive documented in this encounter Results * RH (D) TYPE (04/05/2023 1:56 PM CDT) RH (D) TYPE Positive 04/05/2023 2:24 PM CDT [facility] Blood Venipuncture / Unknown 04/05/2023 1:56 PM CDT 04/05/2023 1:56 PM CDT Meron Jones [facility] BLOOD BANK ORDERABLES Fi nal Result [facility] CLIA # [id number] [address] [address] * (ABNORMAL) HCG QUANTITATIVE, BLOOD (04/05/2023 1:56 PM CDT) HCG QUANT, BLOOD 13.3(H) <=1.0 mIU/mL 04/05/2023 2:23 PM CDT [facility] Blood Venipuncture / Unknown 04/05/2023 1:56 PM CDT 04/05/2023 1:56 PM CDT Narrative [facility] - 04/05/2023 2:23 PM CDT Gestational Age hCG mIU/mL 0.2-1 week 5 - 50 1-2 weeks 50 - 500 2-3 weeks 100 - 5000 3-4 weeks 500 - 85868 4-5 weeks 1000 - 71039 5-6 weeks 14209 - 171563 6-8 weeks 85740 - 605542 2-3 months [address] - [address] A false positive and/or falsely elevated total may result from exogenous administration of hCG (medically supervised or unsupervised) Meron Jones PLASTIC JOINT MAKER CHEMISTRY ORDERABLES Fin al Result [facility] CLIA # [id number] [address] [address] documented in this encounter Visit Diagnoses Diagnosis Encounter for test, result positive examination or test, positive result documented in this encounter Additional Health Concerns Assessment Noted Time PHQ-9 Depression Total Score: 1 04/05/20 23 1:17 PM CDT documented as of this encounter Care Teams Fudge Candy Maker Relationship Specialty Start Date End Date Arnoldo Avery MD [address] [phone] PCP - General Family Practice 04/05/23 documented as of this encounter
[2025-08-06 07:10] VITALS: BP 126/77; PULSE 103; RESP 16; TEMP 36.9; O2SAT 100; BMI 23.3
--- OUTSIDE RECORDS SUMMARY | 2025-08-06 07:10 | XMS_ITS | Encounter Summary ---
Author Organization [facility] Address [address] [place] [address] Care Team Providers Care Assistant Golf Coach Name Role Phone Geraldine Linares MD Primary Care Provider Encounter Details Date Type Department Care Team (Latest Contact Info) Description 10/23/2005 Outpatient Historical [facility] Medicine [place] [address] [phone] Shanthi Hi, SLIVER HANDLER [address] [place] [phone] ACUTE PHARYNGITIS (Primary Dx) Social History Tobacco Use Types Packs/Day Years Used Date Smoking Tobacco: Never Assessed Comments Unknown Sex and Gender Information Value Date Recorded Sex Assigned at Not on file Legal 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
--- OUTSIDE RECORDS SUMMARY | 2025-08-06 07:10 | XMS_ITS | Encounter Summary ---
Author Organization [facility] Address [address] [place] [address] Care Team Providers Care Beach Expert Name Role Phone Arnoldo Avery MD Primary Care Provider [phone] Encounter Details Date Type Department Care Team ([facility] Contact Info) Description 06/09/2025 Lab Requisition [facility] Laboratory Services [place] [address] [address] Meron Jones, [facility] [address] [address] Social History Tobacco Use Types [...] AM CDT Legal Sex Female 12:05 PM MILITARY COOK Gender Identity Female 06/04/2025 11:50 AM CDT Sexual Orientation Not on file documented as of this encounter Plan of Treatment Upcoming Encounters Date Type Department Care Team (Late Contact Info) Description 11/19/2025 3:40 PM MILITARY COOK Office Visit [facility] Medicine [place] [address] [address] Meron Jones, [facility] [address] [place] [address] 05/03/2026 3:00 PM CDT Office Visit [facility] [address] [place] [address] Meron Jones, [facility] [address] [place] [address] documented as of this encounter Procedures Procedure Name Priority Date/Time Associated Diagnosis Comments CBC WITH DIFFERENTIAL Stat 06/09/2025 3:10 PM CDT HCG QUANTITATIVE, BLOOD Stat 06/09/2025 3:10 PM CDT documented in this encounter Results * (ABNORMAL) CBC WITH DIFFERENTIAL (06/09/2025 3:10 PM CDT) WBC 4.1 4.0 - 10.0 K/uL 06/09/2025 3:32 PM CDT [facility] RBC 4.70 3.93 - 5.22 M/uL 06/09/2025 3:32 PM CDT [facility] HEMOGLOBIN 12.3 11.2 - 15.7 g/dL 06/09/2025 3:32 PM CDT [facility] HEMATOCRIT 35.9 34.1 - 44.9 % 06/09/2025 3:32 PM CDT [facility] MCV 76.4(L) 79.4 - 94.8 fL 06/09/2025 3:32 PM CDT [facility] MCH 26.2 25.6 - 32.2 pg 06/09/2025 3:32 PM CDT [facility] MCHC 34.3 32.2 - 35.5 g/dL 06/09/2025 3:32 PM CDT [facility] RDW 13.6 11.0 - 14.5 % 06/09/2025 3:32 PM CDT [facility] RDW-STDEV 37.8 36.9 - 56.9 fL 06/09/2025 3:32 PM [facility] PLATELETS 231 163 - 337 K/uL 06/09/2025 3:32 PM [facility] MPV 10.6 10.0 - 14.8 fL 06/09/2025 3:32 PM [facility] NEUTROPHILS 66 34 - 71 % 06/09/2025 3:32 PM [facility] LYMPHOCYTES 22 19 - 52 % 06/09/2025 3:32 PM [facility] MONOCYTES 10 5 - 13 % 06/09/2025 3:32 PM [facility] EOSINOPHILS 3 1 - 6 % 06/09/2025 3:32 PM [facility] BASOPHILS 0 0 - 1 % 06/09/2025 3:32 PM [facility] IMMATURE GRANULOCYTES 0 % 06/09/2025 3:32 PM [facility] NEUTROPHIL ABSOLUTE 2.67 1.56 - 6.13 K/uL 06/09/2025 3:32 PM [facility] LYMPHOCYTE ABSOLUTE 0.88(L) 1.20 - 3.40 K/uL 06/09/2025 3:32 PM [facility] MONOCYTE ABSOLUTE 0.41(H) 0.24 - 0.36 K/uL 06/09/2025 3:32 PM [facility] EOSINOPHIL ABSOLUTE 0.10 0.04 - 0.36 K/uL 06/09/2025 3:32 PM [facility] BASOPHILS ABSOLUTE 0.01 0.01 - 0.08 K/uL 06/09/2025 3:32 PM [facility] IMMATURE GRANULOCYTES ABSOLUTE 0.01 K/uL 06/09/2025 3:32 PM [facility] Blood 06/09/2025 3:10 PM CDT 06/09/2025 3:13 PM CDT us Meron Jones ROOFING TILE SORTER HEMATOLOGY ORDERABLES Fi nal Result [facility] CLIA # [id number] [address] [place] [address] * (ABNORMAL) HCG QUANTITATIVE, BLOOD (06/09/2025 3:10 PM CDT) HCG QUANT, BLOOD 3,286.0(H ) <=1.0 mIU/mL 06/09/2025 3:41 PM CDT [facility] Comment: Male <= 2 mIU/mL Female Non [...] CDT 06/09/2025 3:13 PM CDT Meron Jones ROOFING TILE SORTER CHEMISTRY ORDERABLES Fin al Result [facility] CLIA # [id number] [address] [place] [address] documented in this encounter Visit Diagnoses Not on filedocumented in this encounter Additional Health Concerns Assessment Noted Time PHQ-9 Depression Total Score: 1 10/13/19 25 1:49 PM MILITARY COOK documented as of this encounter Care Teams Beach Expert Relationship Specialty Start Date End Date Arnoldo Avery MD [address] [address] PCP - General Family Practice 04/05/23 documented as of this encounter
--- OUTSIDE RECORDS SUMMARY | 2025-08-06 07:10 | XMS_ITS | Encounter Summary ---
Author Organization [facility] Address [address] [place] [address] Care Team Providers Care Applications Support Specialist Name Role Phone Geraldine Linares MD Primary Care Provider Encounter Details Date Type Department Care Team (Latest Contact Info) Description 02/06/2006 Outpatient Historical [facility] [address] [place] [address] Shanthi Hi, PLANT GUARD [address] [place] [phone] Superficial Injury NEC (Primary Dx) Social History Tobacco Use Types Packs/Day Years Used Date Smoking Tobacco: Never Assessed Comments Unknown Sex and Gender Information Value Date Recorded Sex Assigned at Not on file Legal Sex Female 3:17 AM PROGRAM SERVICES 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
--- OUTSIDE RECORDS SUMMARY | 2025-08-06 07:10 | XMS_ITS | Encounter Summary ---
Author Organization [facility] Address [address] [place] [address] Care Team Providers Care Market Basket Maker Name Role Phone Arnoldo Avery MD Primary Care Provider [phone] Encounter Details Date Type Department Care Team (Late Contact Info) Description 06/10/2025 Lab Requisition [facility] Laboratory Services [place] [address] [address] Meron Jones, [facility] [address] [address] related conditions, unspecified, first trimester [...] AM CDT Legal Sex Female 12:05 PM SHINGLE WEAVER Gender Identity Female 06/04/2025 11:50 AM CDT Sexual Orientation Not on file documented as of this encounter Plan of Treatment Upcoming Encounters Date Type Department Care Team (Late Contact Info) Description 11/19/2025 3:40 PM SHINGLE WEAVER Office Visit [facility] Medicine [place] [address] [address] Meron Jones Yesi, [facility] [address] [place] [address] 05/03/2026 3:00 PM CDT Office Visit [facility] [address] [place] [address] Karen Meron Yesi, [facility] [address] [place] [address] documented as of this encounter Procedures Procedure Name Priority Date/Time Associated Diagnosis Comments HCG QUANTITATIVE, BLOOD Stat 06/10/2025 1:33 PM CDT related conditions, unspecified, first trimester documented in this encounter Results * (ABNORMAL) HCG QUANTITATIVE, BLOOD (06/10/2025 1:33 PM CDT) HCG QUANT, BLOOD 4,887.0(H ) <=1.0 mIU/mL 06/10/2025 1:57 PM CDT [facility] Comment: Male <= 2 mIU/mL [...] 1:33 PM CDT 06/10/2025 1:33 PM CDT us Meron Jones SWAGE TOOLSETTER CHEMISTRY ORDERABLES Fin al [id number] [address] [address] documented in this encounter Visit Diagnoses Diagnosis related conditions, unspecified, first trimester documented in this encounter Additional Health Concerns Assessment Noted Time PHQ-9 Depression Total Score: 1 10/13/19 25 1:49 PM SHINGLE WEAVER documented as of this encounter Care Teams Market Basket Maker Relationship Specialty Start Date End Date Arnoldo Avery MD [address] [phone] PCP - General Family Practice 04/05/23 documented as of this encounter
--- OUTSIDE RECORDS SUMMARY | 2025-08-06 07:10 | XMS_ITS | Encounter Summary ---
Author Organization [facility] Address [address] [place] [address] Care Team Providers Care Customer Care Voice Consultant Name Role Phone Arnoldo Avery MD Primary Care Provider [phone] Reason for Visit * Reason Onset Date Comments Results 06/09/2025 Encounter Details Date Type Department Care Team (Latest Contact Info) Description 06/09/2025 Results Follow-Up [facility] Medicine [place] [address] [address] Meron Jones, [facility] [address] [address] HCG QUANTITATIVE, BLOOD, CBC WITH [...] AM CDT Legal Sex Female 12:05 PM WIRE INSULATOR Gender Identity Female 06/04/2025 11:50 AM CDT [...] st Contact Info) Description 11/19/2025 3:40 PM WIRE INSULATOR Office Visit [facility] [address] [place] [address] Meron Jones FNP [address] [place] [address] 05/03/2026 3:00 PM CDT Office Visit [facility] [address] [place] [address] Meron Jones FNP [address] [place] [address] documented as of this encounter Visit Diagnoses Not on filedocumented in this encounter Additional Health Concerns Assessment Noted Time PHQ-9 Depression Total Score: 1 10/13/19 25 1:49 PM WIRE INSULATOR documented as of this encounter Care Teams Customer Care Voice Consultant Relationship Specialty Start Date End Date Arnoldo Avery MD [address] [place] [address] PCP - General Family Practice 04/05/23 documented as of this encounter
--- OUTSIDE RECORDS SUMMARY | 2025-08-06 07:10 | XMS_ITS | Encounter Summary ---
Author Organization [facility] Address [address] [place] [address] Care Team Providers Care Information Security Name Role Phone Geraldine Linares MD Primary Care Provider Encounter Details Date Type Department Care Team (Latest Contact Info) Description 09/18/2005 Outpatient Historical [facility] Family Medicine- [address] [place] [phone] Sierra Baxter NP NO ADDRESS ON FILE ACUTE SINUSITIS NOS (Primary Dx); ACUTE PHARYNGITIS; OTITIS MEDIA NOS Social History Tobacco Use Types Packs/Day Years Used Date Smoking Tobacco: Never Assessed Comments Unknown Sex and Gender Information Value Date Recorded Sex Assigned at Not on file Legal Sex Female 3:17 AM CHOIR LEADER Gender Identity Not on file Sexual Orientation Not on file documented as of this encounter Plan of Treatment Not on file documented as of this encounter Visit Diagnoses Diagnosis Acute sinusitis, unspecified- Primary Acute pharyngitis Unspecified otitis media documented in this encounter Care Teams Information Security Relationship Specialty Start Date End Date Geraldine Linares MD [address] [facility] [address] [place] [address] PCP - General Family Practice 01/20/14 documented as of this encounter
--- OUTSIDE RECORDS SUMMARY | 2025-08-06 07:11 | XMS_ITS | Encounter Summary ---
Author Organization [facility] Address [address] [place] [address] Care Team Providers Care Toilet Attendant Name Role Phone Arnoldo Avery MD Primary Care Provider [phone] Encounter Details Date Type Department Care Team (Late Contact Info) Description 06/18/2025 Results Follow-Up [address] [address] Meron Jones, [facility] [address] [address] HCG QUANTITATIVE, BLOOD Social History [...] AM CDT Legal Sex Female 12:05 PM TREE FARMER Gender Identity Female 06/04/2025 11:50 AM CDT Sexual Orientation Not on file documented as of this encounter Plan of Treatment Upcoming Encounters Date Type Department Care Team (Late Contact Info) Description 11/19/2025 3:40 PM TREE FARMER Office Visit [address] [address] Meron Jones [facility] [address] [place] [address] 05/03/2026 3:00 PM CDT Office Visit [facility] [address] [place] [address] Meron Jones [facility] [address] [place] [address] documented as of this encounter Visit Diagnoses Not on filedocumented in this encounter Additional Health Concerns Assessment Noted Time PHQ-9 Depression Total Score: 1 10/13/19 25 1:49 PM TREE FARMER documented as of this encounter Care Teams Toilet Attendant Relationship Specialty Start Date End Date Arnoldo Avery MD [address] [place] [address] PCP - General Family Practice 04/05/23 documented as of this encounter
--- OUTSIDE RECORDS SUMMARY | 2025-08-06 07:12 | XMS_ITS | Clinical Summary ---
Author Organization [facility] Address [address] Adam: Epic Prelude ADT ROBERT LOPEZ [address] Care Team Providers Care Training Project Manager Name Role Phone Arnoldo Avery MD Primary Care Provider [phone] Allergies No known active allergies Medications ferrous sulfate 325 mg (65 mg iron) tabletIndication s:Iron deficiency anemia, unspecified iron deficiency anemia type Take 1 Tablet (325 mg) by mouth daily. 90 Tablet 1 05/05/2025 Active FLUoxetine (PROzac) 20 mg capsuleIndicatio ns:Moderate episode of recurrent major depressive disorder (CMS/HCC),Anxiet y Take 1 Capsule (20 mg) by mouth daily. 30 Capsule 1 05/19/2025 Active vit no.126-iron-fa 28 mg iron- 800 mcg TabletIndication s:Complication related to , first trimester Take 1 Tablet by mouth daily. 90 Tablet 06/11/2025 Active Active Problems Problem Noted Date Diagnosed Date Declined influenza vaccine 07/24/2024 Environmental tobacco smoke exposure 08/09/2015 Constipation 05/23/2012 ETD (eustachian tube dysfunction) 12/05/2010 Well child visit Comments Yes Encounters Date Type Department Care Team Description 07/28/2025 External Device Data [facility] ABSTRACTION Provider, Abstract 07/21/2025 External Device Data [facility] ABSTRACTION Provider, Abstract 07/12/2025 Orders Only [facility] Medicine [place] [address] [facility] [address] [place] [phone] Meron Jones FNP 07/06/2025 External Device Data [facility] ABSTRACTION Provider, Abstract 07/05/2025 Orders Only [facility] [address] [place] [address] Meron Jones FNP 07/02/2025 Results Follow-Up [facility] [address] [place] [address] Meron Jones FNP US OB LESS THAN 14 WKS SINGLE + TRANSVAG 07/01/2025 11:51 AM CDT - 07/01/2025 11:59 PM CDT Hospital Encounter [facility] Ultrasound [place] [address] [place] [phone] Meron Jones FNP Discharge Disposition: Home or Self Care 06/30/2025 Orders Only [address] [place] [address] Meron Jones, LIANNE Vaginal bleeding during (Primary Dx); Complication related to , first trimester 06/28/2025 Orders Only [address] [place] [address] Meron Jones FNP 06/24/2025 Results Follow-Up [address] [place] [address] Meron Jones FNP HCG QUANTITATIVE, BLOOD 06/21/2025 Orders Only [facility] [address] [place] [address] Meron Jones FNP 06/18/2025 Results Follow-Up [address] [place] [address] Meron Jones FNP HCG QUANTITATIVE, BLOOD 06/14/2025 Orders Only [address] [place] [address] Meron Jones FNP 06/11/2025 Orders Only [facility] [address] [place] [address] Angelita Nolasco LPN Complication related to , first trimester 06/11/2025 Results Follow-Up [facility] [address] [place] [address] Meron Jones FNP US OB LESS THAN 14 WKS SINGLE + TRANSVAG 06/11/2025 Orders Only [facility] [address] [place] [address] Meron Jones FNP Complication related to , first trimester 06/10/2025 1:25 PM CDT - 06/10/2025 11:59 PM CDT Hospital Encounter [facility] Outpatient Laboratory Services [place] [address] [place] [address] Meron Jones FNP Discharge Disposition: Home or Self Care 06/10/2025 Results Follow-Up [facility] [address] [place] [address] Meron Jones FNP HCG QUANTITATIVE, BLOOD 06/10/2025 Orders Only [facility] [address] [place] [address] Dawn Grant RN Complication related to , first trimester 06/10/2025 Telephone [facility] [address] [place] [address] Arnoldo Avery MD Medication Assistance 06/10/2025 Lab Requisition [facility] General Laboratory Services [place] [address] [place] [address] Meron Jones FNP related conditions, unspecified, first trimester 06/09/2025 2:51 PM CDT - 06/09/2025 11:59 PM CDT Hospital Encounter [facility] Outpatient Laboratory Services [place] [address] [address] Meron Jones FNP Discharge Disposition: Home or Self Care 06/09/2025 2:40 PM CDT Office Visit [address] [address] Meron Jones FNP Pre-syncope (Primary Dx); Iron deficiency anemia, unspecified iron deficiency anemia type; PCOS (polycystic ovarian syndrome); Complication related to , first trimester; Vaginal bleeding during 06/09/2025 Results Follow-Up [address] [address] Meron Jones FNP HCG QUANTITATIVE, BLOOD, CBC WITH DIFFERENTIAL 06/09/2025 Lab Requisition [facility] Laboratory [address] [address] Meron Jones FNP 06/08/2025 External Device Data [facility] ABSTRACTION Provider, Abstract 06/04/[address] [phone] Arnoldo Avery MD Patient Communication 05/19/2025 3:00 PM CDT Office Visit [address] [address] Meron Jones FNP Iron deficiency anemia, unspecified iron deficiency anemia type (Primary Dx); Moderate episode of recurrent major depressive disorder ([facility]/HCC); Anxiety 05/19/2025 11:56 AM CDT - 05/19/2025 11:59 PM CDT Hospital Encounter [address] [address] Meron Jones FNP Discharge Disposition: Home or [...] PERTUSSIS, HEPATITIS B, AND INACTIVATED POLIOVIRUS VACCINE ([id number]), 0.5ML, IM 06/12/2005,04/04/2005,01/12/2005 (PROQUAD)(12 MOS-12 YRS)EDITH LES, [...] History Relation Name Comments Healthy Father Grant Embudo Colon Cancer Maternal Grandfather Eduardo Checo Healthy Maternal Grandfather Eduardo Checo High Cholesterol Maternal Grandfather Eduardo Checo Healthy Maternal Grandmother Azalia Nair High Cholesterol Maternal Grandmother Azalia Nair Depression Mother Cristeen Embudo Healthy Mother Cristblanca Embudo Heart Disease Mother Cristeen Embudo Stroke Mother Cristeen Embudo Colon Cancer Other ggm Diabetes Paternal Grandfather Jayce Embudo Healthy Paternal Grandfather Jayce Embudo High Cholesterol Paternal Grandfather Jayce Embudo Healthy Paternal Grandmother Lilian Embudo High Cholesterol Paternal Grandmother Lilian Embudo Anemia Sister Jayna Woodse Breast Cancer Neg Hx Relation Name Status Comments Father Grant Embudo Alive Maternal Grandfather Eduardo Checo Alive Maternal Grandmother Azalia Nair Alive Mother Cristblanca Embudo Alive Other ggm Paternal Grandfather Jayce Embudo Alive Paternal Grandmother Lilian Embudo Alive Sister Jayna Woodse Alive Social History Tobacco Use Types Packs/Day [...] AM CDT Legal Sex Female 12:05 PM ASSURANCE 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 Gender Identity Female 06/04/2025 11:50 AM CDT [...] st Contact Info) Description 11/19/2025 3:40 PM ASSURANCE ASSOCIATE Office Visit [address] [phone] Meron Jones FNP [address] [address] 05/03/2026 3:00 PM CDT Office Visit [address] [address] Meron Jones FNP [address] [address] Health Maintenance Due Date Last Done [...] LESS THAN 14 WKS SINGLE + TRANSVAG Routine 07/01/2025 1:21 PM CDT Vaginal bleeding during Complication related to , first trimester HCG QUANTITATIVE, BLOOD Routine 06/23/2025 2:11 PM CDT HCG QUANTITATIVE, BLOOD Routine 06/12/2025 6:58 AM [...] PM CDT History of Helicobacter pylori infection VAGINOSIS/VAGINITIS PANEL PLUS Routine 05/03/2025 3:25 PM CDT Screen for STD (sexually transmitted disease) from Last 3 Months or Most Recently Relevant to Health Maintenance Results * US OB LESS THAN 14 WKS SINGLE + TRANSVAG (07/01/2025 1:21 PM CDT) Only the most recent of2 resultswithin the time period is included. Anatomical Region Laterality Modality Pelvis Ultrasound 07/01/2025 1:21 PM CDT Impressions 07/01/2025 2:19 PM CDT IMPRESSION: Viable first trimester intrauterine gestation. Small perigestational hemorrhage. Narrative 07/01/2025 2:19 PM CDT Exam: US OB LESS THAN 14 WKS SINGLE + TRANSVAG Date/Time of Exam: 07/01/2025 1:21 PM Reason For Exam: See Diagnosis. Diagnosis: Vaginal bleeding during ; Complication related to , first trimester. Technique: Real-time color flow transabdominal and transvaginal. Comparison: None. FINDINGS: Uterus measures 5.0 x 10.3 x 6.9 cm. Position anteversion retroflexion. Viable intrauterine gestation. pole and yolk sac identified. Gestational age based on crown-rump length eight weeks zero days. cardiac activity documented at 170 bpm. There is appearance of small perigestational hemorrhage measuring 2.3 x 1.6 x 1.8 cm. Right ovary measures 2.6 x 3.2 x 1.8 cm for a volume of 8.0 mL. Normal morphology. Left ovary measures 1.8 x 2.1 x 1.9 cm for a volume of 3.8 mL. Normal morphology. No free fluid. Procedure Note Rosales Reynolds, DO - 07/01/2025 Exam: US OB LESS THAN 14 WKS SINGLE + TRANSVAG Date/Time of Exam: 07/01/2025 1:21 PM Reason For Exam: See Diagnosis. Diagnosis: Vaginal bleeding during ; Complication related to , first trimester. Technique: Real-time color flow transabdominal and transvaginal. Comparison: None. FINDINGS: Uterus measures 5.0 x 10.3 x 6.9 cm. Position anteversion retroflexion. Viable intrauterine gestation. pole and yolk sac identified. Gestational age based on crown-rump length eight weeks zero days. cardiac activity documented at 170 bpm. There is appearance of small perigestational hemorrhage measuring 2.3 x 1.6 x 1.8 cm. Right ovary measures 2.6 x 3.2 x 1.8 cm for a volume of 8.0 mL. Normal morphology. Left ovary measures 1.8 x 2.1 x 1.9 cm for a volume of 3.8 mL. Normal morphology. No free fluid. IMPRESSION: Viable first trimester intrauterine gestation. Small perigestational hemorrhage. Meron ELP US ORDERABLES Final Re sult * HCG QUANTITATIVE, BLOOD (06/23/2025 2:11 PM CDT) Only the most recent of4 resultswithin the time period is included. Pathologist [facility] HCG QUANT, BLOOD 53568 mIU/mL [facility] Comment: Gestational Age Expected hCG values (mIU/mL) <1 Week: 5-50 1-2 Weeks: 50-500 2-3 Weeks: 100-5000 3-4 Weeks: 500-50074 4-5 Weeks: 1000-73438 5-6 Weeks: [address] 6-8 Weeks: [address] 2-3 Months: [address] The table above provides only a very [...] or approved by the FDA or the oncology rep specialist of the assay. FASTING:UNKNOWN FASTING: UNKNOWN Test Performed at: [facility] [employer] [facility] [address] [place] [address] Janki Sanches MD Blood 06/23/2025 2:11 PM CDT 06/23/2025 2:15 PM CDT Meron Jones [facility] CHEMISTRY ORDERABLES Fin al Result [facility] [phone] [facility] [facility] [address] [place] [address] * (ABNORMAL) CBC WITH DIFFERENTIAL (06/09/2025 3:10 PM CDT) WBC 4.1 4.0 - 10.0 K/uL 06/09/2025 3:32 PM CDT [facility] RBC 4.70 3.93 - 5.22 M/uL 06/09/2025 3:32 PM [facility] HEMOGLOBIN 12.3 11.2 - 15.7 g/dL 06/09/2025 3:32 PM [facility] HEMATOCRIT 35.9 34.1 - 44.9 % 06/09/2025 3:32 PM [facility] MCV 76.4(L) 79.4 - 94.8 fL 06/09/2025 3:32 PM [facility] MCH 26.2 25.6 - 32.2 pg 06/09/2025 3:32 PM [facility] MCHC 34.3 32.2 - 35.5 g/dL 06/09/2025 3:32 PM [facility] RDW 13.6 11.0 - 14.5 % 06/09/2025 3:32 PM [facility] RDW-STDEV 37.8 36.9 - 56.9 fL 06/09/2025 3:32 PM [facility] PLATELETS 231 163 - 337 K/uL 06/09/2025 3:32 PM [facility] MPV 10.6 10.0 - 14.8 fL 06/09/2025 3:32 PM [facility] NEUTROPHILS 66 34 - 71 % 06/09/2025 3:32 PM [facility] LYMPHOCYTES 22 19 - 52 % 06/09/2025 3:32 PM [facility] MONOCYTES 10 5 - 13 % 06/09/2025 3:32 PM [facility] EOSINOPHILS 3 1 - 6 % 06/09/2025 3:32 PM [facility] BASOPHILS 0 0 - 1 % 06/09/2025 3:32 PM CDT [facility] IMMATURE GRANULOCYTES 0 % 06/09/2025 3:32 PM CDT [facility] NEUTROPHIL ABSOLUTE 2.67 1.56 - 6.13 K/uL 06/09/2025 3:32 PM CDT [facility] LYMPHOCYTE ABSOLUTE 0.88(L) 1.20 - 3.40 K/uL 06/09/2025 3:32 PM CDT [facility] MONOCYTE ABSOLUTE 0.41(H) 0.24 - 0.36 K/uL 06/09/2025 3:32 PM CDT [facility] EOSINOPHIL ABSOLUTE 0.10 0.04 - 0.36 K/uL 06/09/2025 3:32 PM CDT [facility] BASOPHILS ABSOLUTE 0.01 0.01 - 0.08 K/uL 06/09/2025 3:32 PM CDT [facility] IMMATURE GRANULOCYTES ABSOLUTE 0.01 K/uL 06/09/2025 3:32 PM CDT [facility] Blood 06/09/2025 3:10 PM CDT 06/09/2025 3:13 PM CDT us Meron Jones WHEAT WASHER HEMATOLOGY ORDERABLES Fi nal Result [id number] [address] [place] [address] * COMPREHENSIVE METABOLIC PANEL (06/05/2025 2:18 PM CDT) Blood us Abstract Provider CHEMISTRY ORDERABLES Final [...] the possibility of polycystic ovarian syndrome. Meron Jones [facility] US ORDERABLES Final Re sult * HELICOBACTER PYLORI ANTIGEN, STOOL (05/11/2025 4:04 PM CDT) H. PYLORI AG, STOOL SEE NOTE [facility] Comment: HELICOBACTER PYLORI AG, EIA, STOOL Micro Number: [id number] Test Status: Final Specimen Source: Stool Specimen [...] Detected FASTING:UNKNOWN FASTING: UNKNOWN Test Performed at: [facility] [place] [address] [place] [address] Janki Sanches Stool STOOL SPECIMEN / Unknown 05/11/2025 4:04 PM CDT 05/12/2025 3:10 AM CDT Meron Jones WHEAT WASHER BODY FLUIDS AND STOOLS F inal Result [facility] [phone] [facility] [address] [place] [address] * VAGINOSIS/VAGINITIS PANEL PLUS (05/03/2025 3:25 PM CDT) BACTERIAL VAGINOSIS NEGATIVE NEGATIVE [facility] [employer] [place] LAURA SPECIES NOT DETECTED NOT DETECTED [facility] [place] LAURA GLABRATA NOT DETECTED NOT DETECTED [facility] [place] Comment: Laura species C. albicans, C. tropicalis, C. parapsilosis, and/or C. dubliniensis can be detected, but not differentiated, in the Laura spp. result. TRICHOMONAS VAGINALIS (TV), TMA NOT DETECTED NOT DETECTED [facility] [place] CHLAMYDIA TRACHOMATIS RNA, TMA, UROGENITAL NOT DETECTED NOT DETECTED [facility] [place] NEISSERIA GONORRHOEAE RNA, TMA, UROGENITAL NOT DETECTED NOT DETECTED [facility] [place] Comment: For additional information, please refer to https://education.[employer]/faq/DQR971 (This link is being provided for information/ educational purposes only.) Test Performed at: [facility] [address] [place] [address] Janki Sanches MD Genital SPECIMEN FROM VAGINA / Unknown 05/03/2025 3:25 PM CDT 05/04/2025 3:55 AM CDT Meron ELP MICROBIOLOGY - GENERAL O RDERABLES Final Result Performing Organization Address City/State/[facility] Co de Phone Number [facility] [phone] [facility] [address] [facility] [place] [address] from Last 3 Months or Most Recently Relevant to Health Maintenance Insurance [facility] MEDICAID [facility] [id number] [place] [phone] Care Teams Training Project Manager Relationship Specialty Start Date End Date Arnoldo Avery MD [address] [phone] PCP - General Family Practice 04/05/23
--- OUTSIDE RECORDS SUMMARY | 2025-08-06 07:12 | XMS_ITS | Clinical Summary ---
Author Organization [facility] Address [address] [place] [address] Care Team Providers Care Patient Care Associate Name Role Phone Geraldine Linares MD Primary [...] on file Legal Sex Female 3:17 AM RN FORENSIC Gender Identity Not on file Sexual Orientation Not on file Occupation Industry Job Start Date Job End Date Not on file Not on file Not on file Not on file Last Filed Vital Signs Vital Sign Reading Time Taken Comments Blood Pressure 98/54 08/09/2015 3:15 PM RN FORENSIC Pulse 84 08/09/2015 3:15 PM RN FORENSIC Temperature 37.1 C (98.7 F) 08/09/2015 3:15 PM RN FORENSIC Respiratory Rate 16 08/09/2015 3:15 PM RN FORENSIC Oxygen Saturation 99% 08/09/2015 3:15 PM RN FORENSIC Inhaled Oxygen Concentration - - Weight 44.5 kg (98 lb) 08/09/2015 3:15 PM RN FORENSIC Height 147.3 cm (4' 10 ) 08/09/2015 3:15 PM RN FORENSIC Body Mass Index 20.48 08/09/2015 3:15 PM RN FORENSIC Plan of Treatment Health Maintenance Due Date Last Done Comments HEPATITIS B VACCINES (3 of 3 - 3-dose series) 05/30/2005 04/04/2005, 01/12/2005 CHLAMYDIA SCREENING (ANNUAL) 11-24 YEARS 2015 DTAP/TDAP/TD VACCINES (5 - Tdap) 2015 11/22/2009, 05/12/2009, 04/04/2005, Additional history exists HPV VACCINES (1 - 3-dose series) 2019 Preventative Visit-Managed Medicaid 2023 11/22/2009, 2004 INFLUENZA VACCINE (#1) 2025 Insurance MEDICAID [place] Care Teams Patient Care Associate Relationship Specialty Start Date End Date Geraldine Linares MD [facility] [address] [phone] PCP - General Family Practice 01/20/14
[2025-08-06 07:21] VITALS: BP 126/77; PULSE 94; O2SAT 100
[2025-08-06 07:25] LABS: Hematocrit 34.2 % (36-47); Hemoglobin 11.60 g/dL (12.4-14.8); Mean Corpuscular HGB Conc 33.9 g/dL (30-55); Mean Corpuscular Hemoglobin 26.9 pg (27-33); Mean Corpuscular Volume 79.2 fl (85-98); Nucleated Red Blood Cells % 0 %; Platelet Count 242 10^3/cmm (157-399); Red Blood Count 4.32 10^6/uL (3.85-5.65); White Blood Count 15.18 10^3/uL (4.5-13.0)
--- NOTE | 2025-08-06 07:33 | ED_ITS ---
HPI - 2 General: Chief complaint: Vaginal Bleeding Stated complaint: 13wk preg spotting/cramping Time Seen by Provider: 08/06/25 07:16 History of Present Illness: 19-year-old female G2, P0 SAB 1 LMP 05/07 EDC 02/11/2026 at 13 weeks gestation. Presents to the emergency room with complaints of vaginal bleeding and spotting that began this morning she has been seen for similar complaints previously. No active bleeding now she mostly noticed when she wipes. Associated symptoms: Deny abdominal pain or dysuria Related Data Home Medications ?Medication ?Instructions ?Recorded ?Confirmed fluoxetine 20 mg capsule 20 mg PO DAILY 06/05/2507/24 vitamins no.167-folic 1 tab PO DAILY 06/20/25 08/04/25 acid 400 mcg-dha 25 mg chewable tablet (One-A-Day ) acetaminophen 325 mg tablet 325 mg PO QID PRN 07/28/25 08/04/25 (Tylenol) Allergies Allergy/AdvReac Type Severity Reaction Status Date / Time No Known Allergies Allergy Verified 08/04/25 10:44 Review of Systems 2 Const: Denies: fever(s) or chills Card: Denies: chest pain Resp: Denies: dyspnea GI: Denies: abdominal pain : Denies: dysuria, urinary frequency or urinary urgency Musc: Denies: neck pain or back pain Skin/Breast: Denies: rash PFSH ED 2 PFSH: Medical History No pertinent past medical history neghx: dvt/pe, thyroid, dm, htn PCP: [facility] Surgical History No pertinent past surgical history Family History Grandmother Colon cancer Social History Smoking and tobacco/nicotine status: never used tobacco/nicotine Physical Exam 2 Const: COMMON NORMALS: no acute distress GENERAL APPEARANCE: cooperative and comfortable ORIENTATION/CONSCIOUSNESS: Yes awake, Yes oriented to person, Yes oriented to place and Yes oriented to time HENMT: COMMON NORMALS: normocephalic, atraumatic and hearing grossly normal bilaterally HEAD & SCALP: normocephalic and atraumatic Resp: COMMON NORMALS: normal respiratory effort, No retractions, No use of accessory muscles and clear to auscultation bilaterally AUSCULTATION: clear to auscultation bilaterally Cardio: COMMON NORMALS: regular rate, regular rhythm and No murmurs present (Cardio) RATE: regular rate RHYTHM: regular rhythm GI: COMMON NORMALS: Soft to palpation and No hepatosplenomegaly present A USCULTATION: Yes normoactive bowel sounds PALPATION: Yes Soft to palpation, No Tenderness to palpation present (GI), No Guarding due to palpation present (GI) and Yes No hepatosplenomegaly present Extremity: COMMON NORMALS: normal to inspection, capillary refill normal, no clubbing, cyanosis or edema, no calf tenderness and no pedal edema Neuro: SENSORIUM/ORIENTATION: Yes oriented to person, Yes oriented to place and Yes oriented to time Skin: COMMON NORMALS: no rashes or lesions noted GENERAL SKIN EXAM: no rashes or lesions noted Course 2 Vital Signs: Vital signs: Vital Signs Temperature 97.9 F 08/06/25 10:12 Pulse Rate 89 08/06/25 10:12 Respiratory Rate 16 08/06/25 10:12 Blood Pressure 113/72 08/06/25 10:12 Pulse Oximetry 100 08/06/25 10:12 Oxygen Delivery Me thod Room Air 08/06/25 08:44 MDM - OB/Uterine Contractions Medical Decision Making Ultrasound shows intrauterine with heart tones at 157 gestational age by ultrasound measurements corresponds with EDC based off LMP. No sign of subchorionic hemorrhage fundal placenta. No other abnormality was noted. Urine showed ketones but no other abnormality. She does have a little bit of leukocytosis her abdominal exam is otherwise benign. At this point in think we can discharge her home she not having any active bleeding now. Discharge home her for follow-up with OB return if she has further problems. Reviewed labs and imaging with the patient Medical Records I reviewed the patient's medical records. Lab Data I reviewed the patient's lab results. 08/06/25 07:10 08/06/25 07:10 Radiology Impressions Obstetrics Ultrasound 08/06/25 07:39 IMPRESSION: 1. Single intrauterine gestation of 13w1d with an EDC of 02/10/2026. 2. Cervix is closed. 3. No subchorionic hemorrhage or abruption identified. Laboratory Results WBC 15.18 10^3/uL (4.5-13.0) H 08/06/25 07:10 RBC 4.32 10^6/uL (3.85-5.65) 08/06/25 07:10 Hgb 11.60 g/dL (12.4-14.8) L 08/06/25 07:10 Hct 34.2 % (36-47) L 08/06/25 07:10 MCV 79.2 fl (85-98) L 08/06/25 07:10 MCH 26.9 pg (27-33) L 08/06/25 07:10 MCHC 33.9 g/dL (30-55) 08/06/25 07:10 RDW 13.9 % (12.1-15.1) 08/06/25 07:10 Plt Count 242 10^3/cmm (157-399) 08/06/25 07:10 MPV 10.1 fL (7.4-10.4) 08/06/25 07:10 Neut % (Auto) 87.8 % 08/06/25 07:10 Lymph % (Auto) 5.9 % 08/06/25 07:10 [place] % (Auto) 5.4 % 08/06/25 07:10 Eos % (Auto) 0.3 % 08/06/25 07:10 Baso % (Auto) 0.1 % 08/06/25 07:10 Neut # (Auto) 13.33 10^3/uL (1.8-8.0) H 08/06/25 07:10 Lymph # (Auto) 0.9 10^3/uL (1.5-6.5) L 08/06/25 07:10 [place] # (Auto) 0.8 10^3/uL (0.2-0.9) 08/06/25 07:10 Eos # (Auto) 0.0 10^3/uL (0.0-0.8) 08/06/25 07:10 Baso # (Auto) 0.0 10^3/uL (0.0-0.1) 08/06/25 07:10 Nucleated RBC % (auto) 0 % 08/06/25 07:10 Nucleated RBCs # 0.0 /100WBC 08/06/25 07:10 Sodium 135 mmol/L (136-145) L 08/06/25 07:10 Potassium 3.6 mmol/L (3.5-5.1) 08/06/25 07:10 Chloride 102 mmol/L (98-107) 08/06/25 07:10 Carbon Dioxide 20 mmol/L (22-29) L 08/06/25 07:10 Anion Gap 16.6 (5-19) 08/06/25 07:10 BUN 6 mg/dL (6-20) 08/06/25 07:10 Creatinine 0.6 mg/dL (0.5-0.9) 08/06/25 07:10 GFR Calculation 127.5 mL/min (90-130) 08/06/25 07:10 Glucose 89 mg/dL (65-115) 08/06/25 07:10 Calculated Osmolality 277 mOsm/kg (285-295) L 08/06/25 07:10 Calcium 8.8 mg/dL (8.5-10.5) 08/06/25 07:10 Total Bilirubin 0.4 mg/dL (0.15-1.2) 08/06/25 07:10 AST 10 U/L (0-32) 08/06/25 07:10 ALT 9 U/L (0-33) 08/06/25 07:10 Alkaline Phosphatase 59 U/L (35-105) 08/06/25 07:10 Total Protein 6.7 g/dL (6.6-8.7) 08/06/25 07:10 Albumin 4.0 g/dL (3.5-5.2) 08/06/25 07:10 Globulin 2.7 g/dL (1.3-4.6) 08/06/25 07:10 Ser , Semi-Qnt 17773.00 mIU/mL 08/06/25 07:10 Urine Color Yellow (Yellow) 08/06/25 08:53 Urine Appearance Clear (CLEAR) 08/06/25 08:53 Urine pH 7.0 (5-7) 08/06/25 08:53 Ur Specific Gantt 1.021 (1.005-1.030) 08/06/25 08:53 Urine Protein Trace (Negative) A 08/06/25 08:53 Urine Glucose (UA) Negative (Normal) 08/06/25 08:53 Urine Ketones 2+ (Negative) H 08/06/25 08:53 Urine Blood Negative (Negative) 08/06/25 08:53 Urine Nitrate Negative (Negative) 08/06/25 08:53 Urine Bilirubin Negative (Negative) 08/06/25 08:53 Urine Urobilinogen 1.0 mg/dL (Negative) 08/06/25 08:53 Ur Leukocyte Esterase Negative (Negative) 08/06/25 08:53 Urine RBC 0-2 /hpf (0-2) 08/06/25 08:53 Urine WBC 0-5 /hpf (0-5) 08/06/25 08:53 Ur Squamous Epith Cells 0-5 /hpf (0-5) 08/06/25 08:53 Amorphous Sediment Not Reportable 08/06/25 08:53 Urine Bacteria None seen /hpf (NONE) 08/06/25 08:53 Hyaline Casts 2.87 /lpf 08/06/25 08:53 All radiology interpretation(s) finalized by discharge Discharge Plan Discharge Patient Disposition: Home Clinical Impression: Second trimester bleeding Condition: Stable Prescriptions: No Action acetaminophen [Tylenol] 325 mg tablet 325 mg PO QID PRN fluoxetine 20 mg capsule 20 mg PO DAILY One-A-Day 400 mcg- 25 mg Tablet,Chewable 1 tab PO DAILY Discharge Orders: Discharge ED (Routine); Ordered 08/06/25 Ordered By: Armond Peralta Referrals: Meron Jones [Primary Care Provider, Family Practice] Discharge Diet: Usual diet Discharge Activity: Increase activity as tolerated Patient Instructions: Opioid Safety, Pain Management, Patient Portal & Payam Instructions Activity Restrictions/Additional Instructions: Thank you for choosing [facility] for your healthcare needs today. It is very important that you follow up as instructed or that you return to the Emergency Department should you have concerns or if your condition changes or worsens in any way. Emergency department visits are focused on emergent conditions, in some cases you may require further evaluation on an outpatient basis. You are seen emergency room with complaints of vaginal bleeding. Ultrasound did not show any significant signs of subchorionic hemorrhage. Urine was also normal. heart rate on the ultrasound was normal your other lab work did not show any emergent clinical condition at this time. Will discharge you home. You did show a little signs of being slightly dehydrated you were given a liter of fluid recommend you follow-up with your OB as an outpatient. Return if you have further problems. (Please note that included in your discharge packet is information concerning opioid safety and pain management. This information is given to all patients were discharged from the ER regardless of their discharge diagnosis or the medicines they usually take or are prescribed.) Print Language: Paraguayan Coding Level of Care Code ED Professional Engineer for Padmini Ortiz
--- NOTE | 2025-08-06 07:39 | US_ITS ---
WS: [id number] EARLY OBSTETRICAL ULTRASOUND (<14 WEEKS). HISTORY: Vaginal bleeding COMPARISON: 06/20/2025 Single intrauterine gestational sac is identified. Cardiac activity at 157 BPM. Linda-rump length measures 6.9 cm which corresponds to a gestation of 13w1d. Normal-appearing yolk sac and amnion demonstrated. No subchorionic hemorrhage. Cervix is closed. Placenta appears fundal. No free fluid. Neither ovary is identified. No free fluid. US/ OB limited [id number] IMPRESSION: 1. Single intrauterine gestation of 13w1d with an EDC of 02/10/2026. 2. Cervix is closed. 3. No subchorionic hemorrhage or abruption identified.
[2025-08-06 07:50] LABS: Alanine Aminotransferase 9 U/L (0-33); Albumin Level 4.0 g/dL (3.5-5.2); Alkaline Phosphatase 59 U/L (35-105); Anion Gap 16.6 (5-19); Aspartate Amino Transferase 10 U/L (0-32); Blood Urea Nitrogen 6 mg/dL (6-20); Calcium 8.8 mg/dL (8.5-10.5); Carbon Dioxide 20 mmol/L (22-29); Chloride 102 mmol/L (98-107); Creatinine Clr Calc Pharmacy 146.1254; Globulin 2.7 g/dL (1.3-4.6); Glucose 89 mg/dL (65-115); Osmolality Calculated 277 mOsm/kg (285-295); Potassium 3.6 mmol/L (3.5-5.1); Sodium 135 mmol/L (136-145); Total Protein 6.7 g/dL (6.6-8.7)
[2025-08-06 08:19] VITALS: BP 126/77
[2025-08-06 08:44] VITALS: RESP 18; O2SAT 98
[2025-08-06 09:12] LABS: Glucose Urine UA Negative (Normal); Nitrate Urine Negative (Negative); Specific Gravity, Urine 1.021 (1.005-1.030)
[2025-08-06 09:14] LABS: Add Urine Microscopic? YES
[2025-08-06 10:12] VITALS: BP 113/72; PULSE 89; RESP 16; TEMP 36.6; O2SAT 100
== END 2025-08-06 10:13 | disposition home or self-care (01) ==
PROVIDERS: Emergency Provider Family Medicine; PCP Registered Nurse
DX: O20.9 Hemorrhage in early pregnancy, unspecified (principal); Z3A.13 13 weeks gestation of pregnancy
CPT/HCPCS: 76815; 80053; 81001; 84702; 85025; 99284; J7030

== ENCOUNTER 2025-08-06 11:38 | Emergency (ER) | payer OTHER, MEDICAID, SELFPAY ==
--- NOTE | 2025-08-06 11:44 | W.ED.PREGNAN ---
HPI - General: Chief complaint: Vaginal Bleeding Stated complaint: 13 Weeks pregnate leaking Fluid Time Seen by Provider: 08/06/25 11:41 History of Present Illness: 19-year-old female G2, P0 SAB 1 LMP 05/07/2025 EDC 02/11/2026 at 13 weeks gestation. She was here earlier had ultrasound that was read by radiology as normal with good heart tones. She been having cramping but had not had any gross bleeding while in the emergency room she had reported spotting which she not had any further bleeding. There is no bleeding during that previous ER stay. After she returned home for a few hours she felt a sudden gush of fluid and began to have bleeding and worsening cramping returns to the emergency room. She is still having some vaginal bleeding now. Associated symptoms: Deny abdominal pain or dysuria Related Data Home Medications ?Medication ?Instructions ?Recorded ?Confirmed fluoxetine 20 mg capsule 20 mg PO DAILY 06/05/25 08/06/25 vitamins no.167-folic 1 tab PO DAILY 06/20/25 08/06/25 acid 400 mcg-dha 25 mg chewable tablet (One-A-Day ) acetaminophen 325 mg tablet 325 mg PO QID PRN Fever Or Pain 07/28/25 08/06/25 (Tylenol) Previous Rx's ?Medication ?Instructions ?Recorded hydrocodone 5 mg-acetaminophen 325 1 tab PO Q6H PRN pain #7 tabs 08/06/25 mg tablet amoxicillin 875 mg-potassium 1 tab PO Q12H #20 tabs 08/07/25 clavulanate 125 mg tablet Allergies Allergy/AdvReac Type Severity Reaction Status Date / Time No Known Allergies Allergy Verified 08/04/25 10:44 Review of Systems Const: Denies: fever(s) or chills Card: Denies: chest pain Resp: Denies: dyspnea GI: Denies: abdominal pain : Reports: vaginal bleeding and pelvic pain; Denies: dysuria Musc: Denies: neck pain or back pain Skin/Breast: Denies: rash PFSH ED PFSH: Medical History No pertinent past medical history neghx: dvt/pe, thyroid, dm, htn PCP: [facility] Surgical History No pertinent past surgical history Family History Grandmother Colon cancer Social History Smoking and tobacco/nicotine status: never used tobacco/nicotine Physical Exam Const: GENERAL APPEARANCE: cooperative ORIENTATION/CONSCIOUSNESS: Yes awake, Yes oriented to person, Yes oriented to place and Yes oriented to time HENMT: COMMON NORMALS: normocephalic, atraumatic and hearing grossly normal bilaterally HEAD & SCALP: normocephalic and atraumatic Resp: COMMON NORMALS: normal respiratory effort, No retractions, No use of accessory muscles and clear to auscultation bilaterally AUSCULTATION: clear to auscultation bilaterally Cardio: COMMON NORMALS: regular rate, regular rhythm and No murmurs present (Cardio) RATE: regular rate RHYTHM: regular rhythm GI: COMMON NORMALS: Soft to palpation and No hepatosplenomegaly present AUSCULTATION: Yes normoactive bowel sounds PALPATION: Yes Soft to palpation, No Tenderness to palpation present (GI), No Guarding due to palpation present (GI) and Yes No hepatosplenomegaly present Back/Pelvis: OTHER: Pelvic exam with nurse present. Patient placed in dorsolithotomy position speculum introduced. Significant amount of clotted blood in the vaginal canal. This was removed GC chlamydia and wet mount cultures were done. Cervix swabbed with a chavez swab but no further bleeding from the cervical os os appears [place] parous. No tissue in the cervical canal. Extremity: COMMON NORMALS: normal to inspection, capillary refill normal, no clubbing, cyanosis or edema, no calf tenderness and no pedal edema Neuro: SENSORIUM/ORIENTATION: Yes oriented to person, Yes oriented to place and Yes oriented to time Skin: COMMON NORMALS: no rashes or lesions noted GENERAL SKIN EXAM: no rashes or lesions noted Course Vital Signs: Vital signs: Vital Signs Temperature 98.1 F 08/06/25 11:51 Pulse Rate 85 08/06/25 14:23 Respiratory Rate 18 08/06/25 13:34 Blood Pressure 103/56 08/06/25 14:23 Pulse Oximetry 100 08/06/25 14:23 Oxygen Delivery Me thod Room Air 08/06/25 11:51 MDM - OB/Uterine Contractions Medical Decision Making Ultrasound done discussed Dr. Tom patient has significant change in ultrasound from 1 done earlier same day. Loss of amniotic fluid heart tones still noted however findings consistent with impending miscarriage. Discussed with patient at that her significant other. Reviewed with him unfortunately there is no treatment option this early in the . Return if as worsening pain or uncontrolled bleeding. Pain controlled at time of discharge with medications given. Medical Records I reviewed the patient's medical records. Lab Data I reviewed the patient's lab results. Radiology Impressions Obstetrics Ultrasound 08/06/25 12:09 IMPRESSION: 1. Significant interval change in appearance of the early intrauterine gestation since earlier today. 2. Loss of the normal amniotic fluid. 3. heart rate is still identified. Findings are consistent with impending spontaneous . Notified Armond Peralta DO at 08/06/2025 1:23 PM. Laboratory Results C. trachomatis (PCR) Not detected (Negative) 08/06/25 12:02 N. gonorrhoeae (PCR) Not detected (Negative) 08/06/25 12:02 All radiology interpretation(s) finalized by discharge Discharge Plan Discharge Patient Disposition: Home Clinical Impression: Incomplete miscarriage Condition: Stable Prescriptions: New hydrocodone-acetaminophen 5-325 mg tablet 1 tab PO Q6H PRN (Reason: pain) Qty: 7 0RF No Action acetaminophen [Tylenol] 325 mg tablet 325 mg PO QID PRN (Reason: Fever Or Pain) fluoxetine 20 mg capsule 20 mg PO DAILY One-A-Day 400 mcg- 25 mg Tablet,Chewable 1 tab PO DAILY amoxicillin-pot clavulanate 875-125 mg tablet 1 tab PO Q12H Qty: 20 0RF Discharge Orders: Discharge ED (Routine); Ordered 08/06/25 Ordered By: Armond Peralta Referrals: Meron Jones [Primary Care Provider, Family Practice] Discharge Diet: Usual diet Discharge Activity: Increase activity as tolerated Patient Instructions: Miscarriage (ED), Opioid Safety, Pain Management, Patient Portal & Payam Instructions Activity Restrictions/Additional Instructions: Thank you for choosing [facility] for your healthcare needs today. It is very important that you follow up as instructed or that you return to the Emergency Department should you have concerns or if your condition changes or worsens in any way. Emergency department visits are focused on emergent conditions, in some cases you may require further evaluation on an outpatient basis. You were seen today with concerns for miscarriage. When you were seen earlier ultrasound was normal and the second ultrasound was significantly abnormal and it does look like you are now beginning to have a miscarriage. You are given pain medications to use as needed. You will likely continue to have cramping and intermittent vaginal bleeding for vaginal bleeding becomes greater than 1 pad per hour return to the emergency room. You should follow-up with your OB doctor within the next week. (Please note that included in your discharge packet is information concerning opioid safety and pain management. This information is given to all patients were discharged from the ER regardless of their discharge diagnosis or the medicines they usually take or are prescribed.) Print Language: Kyrgyz Coding Level of Care Code ED Environmental Services Attendant for Padmini Ortiz
[2025-08-06 11:51] VITALS: BP 135/80; PULSE 102; RESP 18; TEMP 36.7; O2SAT 100
[2025-08-06 11:52] VITALS: RESP 27; O2SAT 100
[2025-08-06] MEDS: ondansetron 2 mg/ML SDV 2 mL 4 MG IVP (11:52)
[2025-08-06] MEDS: morphine 4 mg/mL SDV 1 mL IVP ×2 (11:52→13:43)
--- NOTE | 2025-08-06 12:09 | US_ITS ---
WS: [id number] Limited obstetrical ultrasound. HISTORY: Vaginal bleeding. Comparison is made to a study obtained earlier today. There has been a significant interval change in appearance of the intrauterine gestation since the prior study. Amniotic fluid volume has significantly decreased. No appreciable amount of amniotic fluid. The cervix is open. There is hemorrhagic clot noted along the cervix. Hemorrhage now extends posterior to the placenta. heart rate is still present at approximately 161 bpm. US/US OB limited [id number] IMPRESSION: 1. Significant interval change in appearance of the early intrauterine gestatio n since earlier today. 2. Loss of the normal amniotic fluid. 3. heart rate is still identified. Findings are consistent with impending spontaneous . Notified Armond Peralta DO at 08/06/2025 1:23 PM.
[2025-08-06 13:34] VITALS: BP 126/65; PULSE 86; RESP 18; O2SAT 100
[2025-08-06 14:23] VITALS: BP 103/56; PULSE 85; O2SAT 100
[2025-08-06 15:17] LABS: Neisseria Gonorrhea NOT DETECTED (Negative)
== END 2025-08-06 14:53 | disposition home or self-care (01) ==
PROVIDERS: Emergency Provider Family Medicine; PCP Registered Nurse
DX: O03.4 Incomplete spontaneous abortion without complication (principal)
CPT/HCPCS: 36415; 76815; 87210; 87491; 87591; 96374; 96375; 96376; 99284; J1885; J2270; J2405

== ENCOUNTER 2025-08-07 20:01 | Emergency (ER) | payer OTHER, MEDICAID, SELFPAY ==
[2025-08-07 20:06] VITALS: BP 96/65; PULSE 123; RESP 20; TEMP 36.8; O2SAT 100; BMI 22.6
--- OUTSIDE RECORDS SUMMARY | 2025-08-07 20:07 | XMS_ITS | Data Portability ---
Author Organization [facility] Address [address] [address] Care Team Providers Care Weathercaster Name Role Phone RADHA PATRICK Primary Care Provider Assessment Encounter Date Assessment Date Assessment LastModified by Organization Details LastModified Time 07/12/2025 07/12/2025 19-year-old female with a history of polycystic ovarian syndrome presenting with the management of . Currently at 9 weeks gestation with significant, yet manageable, morning sickness. History of one confirmed miscarriage underlies considerations for careful monitoring throughout the . Current management supports stability and continuation of fluoxetine due to minimal risk, with dietary adjustments assisting in symptom relief. [email or web address] Not available 07/12/2025 15:48:37 Plan of Treatment Reminders Order Date Submit Date Provider Last Modified By Organization Details Last Modified Time Details Appointments None recorded. Lab RPR (rapid plasma reagin), serum 2024 025 [facility] [address] [address], [address], [place], [address], 00:58:19 CBC w/ auto diff 2024 025 [facility] [address] [address], [address], [place], [address], 00:58:18 hepatitis C virus Ab, serum 2024 025 [facility], [address], [address], [place], [address], 00:58:18 HIV 1+2 Ab + HIV1 p24 Ag, quantitativ e immunoassay , serum 2024 [facility], [address] [place] [address] 248, [address], [place], [address], 00:58:17 antibody screen, serum or plasma 2024 [facility], [address] [place] [address], [address], [place], [address], 00:58:19 abo group + rh type, blood 2024 [facility], [address] [place] [address], [address], [place], [address], 00:58:20 HBsAg (hepatitis B surface Ag), serum 2024 [facility], [address] [place] [address], [address], [place], [address], 00:58:18 rubella igg Ab screen, serum 2024 [facility], [address] [place] [address], [address], [place], [address], 00:58:18 urinalysis, complete 2024 [facility], [address] [place] [address] 248, [address], [place], [address], 00:58:17 culture, urine 2024 [facility], [address] [place] [address], [address], [place], [address], 00:58:21 drug screen, urine 2024 [facility], [address] [place] [address], [address], [place], [address], 00:58:20 CT + NG RNA, PCR, unspecified specimen 2024 025 [email or web address] 23 [facility], [address] [facility] [address], [address], [place], [address], 11:34:47 Referral None recorded. Procedures None recorded. Surgeries None recorded. Imaging None recorded. Medication Orders None recorded. Patient TargetsNo targets recorded. Patient Instructions Encounter Date Encounter Id Patient Instructions Last Modified By Organization Details Last Modified Time 07/12/2025 [id number] - Eat small, frequent meals throughout the day to help manage nausea. - Take vitamin B6 and doxylamine as needed to relieve morning sickness. - Continue your current dose of fluoxetine as previously prescribed. - Return for regular check-ups every four weeks until the third trimester. - Schedule and attend recommended ultrasound appointments for assessment. - Complete laboratory tests before leaving today. - Contact the office with any new or worsening symptoms. [email or web address] Not available 07/12/2025 15:48:41 During the visit , I discussed the patient's progress, confirmed via previous ultrasounds. I addressed her morning sickness, recommending dietary adjustments and the use of vitamin B6 and doxylamine for symptom relief. Discussions included the continuation of fluoxetine, without changes, as it poses no significant risk. The patient's history of miscarriage was reviewed to provide reassurance and establish a monitoring plan, with regular follow-ups and routine lab work. Further discussions involved future gestational milestones, including plans for gestational diabetes screening and vaccinations. I encouraged the patient to ask questions and expressed openness for discussion at each visit. [email or web address] Not available 07/12/2025 15:48:41 Reason for Referral None Reported. Results Created Date Observation Date Name Description Value Unit Range Abnormal Flag Note LastModifiedBy Organization Detail LastModifiedTime 07/12/2007/13/2025 HIV 1/2 ANTIG EN/AN TIBOD Y,FOU RTH GENER ATION W/RFL HIV final interpretati on HIV NEGATI VE normal HIV-1 antig en and HIV-1 /HIV- 2 antib odies were not detec araceli. There is no labor atory evide nce of HIV infec tion. Not Available [address], [address], 07/14/2025 00:58:17 07/12/20 25 07/13/2025 HIV 1/2 ANTIG EN/AN TIBOD Y,FOU RTH GENER ATION W/RFL HIV Ag/Ab, screen NON-RE ACTIVE non-re active normal Not Available [address], [address], 07/14/2025 00:58:17 07/12/20 25 07/13/2025 URINA LYSIS , COMPL ETE color YELLOW yellow normal Not Available [address], [address], 07/14/2025 00:58:17 07/12/2007/13/2025 URINA LYSIS , COMPL ETE appearance CLOUDY clear abnormal Not Available [address], [address], 07/14/2025 00:58:17 07/12/2007/13/2025 URINA LYSIS , COMPL ETE specific gravity 1.024 1.001- 1.035 normal Not Available [address], [address], 07/14/2025 00:58:17 07/12/2007/13/2025 URINA LYSIS , COMPL ETE pH 8.0 5.0-8. 0 normal Not Available [address], [address], 07/14/2025 00:58:17 07/12/20 25 07/13/2025 URINA LYSIS , COMPL ETE glucose NEGATI VE negati ve normal Not Available [address], [address], 07/14/2025 00:58:17 07/12/2007/13/2025 URINA LYSIS , COMPL ETE bilirubin NEGATI VE negati ve normal Not Available [address], [address], 07/14/2025 00:58:17 07/12/2007/13/2025 URINA LYSIS , COMPL ETE ketones NEGATI VE negati ve normal Not Available [address], [address], 07/14/2025 00:58:17 07/12/2007/13/2025 URINA LYSIS , COMPL ETE occult blood NEGATI VE negati ve normal Not Available [address], [address], 07/14/2025 00:58:17 07/12/2007/13/2025 URINA LYSIS , COMPL ETE protein 1+ negati ve abnormal Not Available [address], [address], 07/14/2025 00:58:17 07/12/2007/13/2025 URINA LYSIS , COMPL ETE nitrite NEGATI VE negati ve normal Not Available [address], [address], 07/14/2025 00:58:17 07/12/2007/13/2025 URINA LYSIS , COMPL ETE leukocyte esterase NEGATI VE negati ve normal Not Available [address], [address], 07/14/2025 00:58:17 07/12/20 25 07/13/2025 URINA LYSIS , COMPL ETE WBC NONE SEEN /hpf < or = 5 normal Not Available [address], [address], 07/14/2025 00:58:17 07/12/20 25 07/13/2025 URINA LYSIS , COMPL ETE RBC 0-2 /hpf < or = 2 normal Not Available [address], [address], 07/14/2025 00:58:17 07/12/20 25 07/13/2025 URINA LYSIS , COMPL ETE squamous epithelial cells 0-5 /hpf < or = 5 Not Available [facility] [address], [address], 07/14/2025 00:58:17 07/12/2007/13/2025 URINA LYSIS , COMPL ETE bacteria FEW /hpf none seen abnormal Not Available [address], [address], 07/14/2025 00:58:17 07/12/20 25 07/13/2025 URINA LYSIS , COMPL ETE calcium oxalate crystals FEW /hpf none or few normal Not Available [address], [address], 07/14/2025 00:58:17 07/12/20 25 07/13/2025 URINA LYSIS , COMPL ETE hyaline cast NONE SEEN /lpf none seen normal Not Available [address], [address], 07/14/2025 00:58:17 07/12/2007/13/2025 URINA LYSIS , COMPL ETE note This urine was jamilah zed for the prese nce of WBC, RBC, bacte abelino, casts , and other forme d eleme nts. Only those eleme nts seen were repor araceli. Not Available [address], [address], 07/14/2025 00:58:17 07/12/20 25 07/13/2025 CBC (INCL UDES DIFF/ PLT) white blood cell count 8.9 thous and/u L 3.8-10 .8 normal Not Available [address], [address], 07/14/2025 00:58:18 07/12/20 25 07/13/2025 CBC (INCL UDES DIFF/ PLT) red blood cell count 4.70 lucero on/uL 3.80-5 .10 normal Not Available [address], [address], 07/14/2025 00:58:18 07/12/2007/13/2025 CBC (INCL UDES DIFF/ PLT) hemoglobin 13.0 g/dL 11.7-1 5.5 normal Not Available [address], [address], 07/14/2025 00:58:18 07/12/20 25 07/13/2025 CBC (INCL UDES DIFF/ PLT) hematocrit 39.2 % 35.0-4 5.0 normal Not Available [address], [address], 07/14/2025 00:58:18 07/12/20 25 07/13/2025 CBC (INCL UDES DIFF/ PLT) MCV 83.4 fL 80.0-1 00.0 normal Not Available [address], [address], 07/14/2025 00:58:18 07/12/20 25 07/13/2025 CBC (INCL UDES DIFF/ PLT) MCH 27.7 pg 27.0-3 3.0 normal Not Available [address], [address], 07/14/2025 00:58:18 07/12/20 25 07/13/2025 CBC (INCL UDES DIFF/ PLT) MCHC 33.2 g/dL 32.0-3 6.0 normal For adult s, a sligh t decre ase in the calcu lated MCHC value (in the range of 30 to 32 g/dL) is most likel y not clini concepción signi aysha t; bronson er, it stephanie d be inter prete d with cauti on in [facility] n with other red cell angélica eters and the patie nt's clini solomon condi tion. Not Available [facility] [address], [address], 07/14/2025 00:58:18 07/12/20 25 07/13/2025 CBC (INCL UDES DIFF/ PLT) RDW 14.9 % 11.0-1 5.0 normal Not Available [address], [address], 07/14/2025 00:58:18 07/12/20 25 07/13/2025 CBC (INCL UDES DIFF/ PLT) platelet count 279 thous and/u L 140-40 0 normal Not Available [address], [address], 07/14/2025 00:58:18 07/12/2007/13/2025 CBC (INCL UDES DIFF/ PLT) MPV 11.3 fL 7.5-12 .5 normal Not Available [address], [address], 07/14/2025 00:58:18 07/12/2007/13/2025 CBC (INCL UDES DIFF/ PLT) absolute neutrophils 7165 cells /uL 1500-7 800 normal Not Available [facility] [address], [address], 07/14/2025 00:58:18 07/12/20 25 07/13/2025 CBC (INCL UDES DIFF/ PLT) absolute lymphocytes 970 cells /uL 850-39 00 normal Not Available [facility] [address], [address], 07/14/2025 00:58:18 07/12/20 25 07/13/2025 CBC (INCL UDES DIFF/ PLT) absolute monocytes 650 cells /uL 200-95 0 normal Not Available [address], [address], 07/14/2025 00:58:18 07/12/20 25 07/13/2025 CBC (INCL UDES DIFF/ PLT) absolute eosinophils 80 cells /uL 15-500 normal Not Available [address], [address], 07/14/2025 00:58:18 07/12/2007/13/2025 CBC (INCL UDES DIFF/ PLT) absolute basophils 36 cells /uL 0-200 normal Not Available [address], [address], 07/14/2025 00:58:18 07/12/20 25 07/13/2025 CBC (INCL UDES DIFF/ PLT) neutrophils 80.5 % normal Not Available [address], [address], 07/14/2025 00:58:18 07/12/20 25 07/13/2025 CBC (INCL UDES DIFF/ PLT) lymphocytes 10.9 % normal Not Available [address], [address], 07/14/2025 00:58:18 07/12/2007/13/2025 CBC (INCL UDES DIFF/ PLT) monocytes 7.3 % normal Not Available [address], [address], 07/14/2025 00:58:18 07/12/20 25 07/13/2025 CBC (INCL UDES DIFF/ PLT) eosinophils 0.9 % normal Not Available [address], [address], 07/14/2025 00:58:18 07/12/20 25 07/13/2025 CBC (INCL UDES DIFF/ PLT) basophils 0.4 % normal Not Available [address], [address], 07/14/2025 00:58:18 07/12/2007/13/2025 HEPAT ITIS B SURFA CE ANTIG EN W/REF L CONFI RM hepatitis B surface antigen NON-RE ACTIVE non-re active normal For addit ional infor rosa isela stauffer, rosalva e refer to http: //[facility] n.que stdia gnost ics.c om/fa q/FAQ 202 (This link is being provi ded for infor matio nal/ educa lizabeth l purpo ses only. ) Not Available [facility] [address], [address], 07/14/2025 00:58:18 07/12/2007/13/2025 HEPAT ITIS C AB W/REF L TO HCV RNA, QN, PCR hepatitis C antibody NON-RE ACTIVE non-re active normal HCV antib robert was non-r eacti ve. There is no labor atory evide nce of HCV infec tion. In most cases , no furth er actio n is requi red. Howev er, if recen t HCV expos ure is suspe cted, a test for HCV RNA (test code 37756 ) is sugge sted. For addit ional infor rosa isela n pleas e refer to http: //[facility] n.que stdia gnost ics.c om/fa q/FAQ 22v1 (This link is being provi ded for infor matio nal/ educa lizabeth l purpo ses only. ) Not Available [address] [address] [place], [address], 07/14/2025 00:58:18 07/12/20 25 07/13/2025 RUBEL LA AB (IGG) , IMMUN E STATU S rubella Ab (IgG), immune status 3.89 index normal Index Inter preta tion ----- ----- ----- ---- <0.90 Not consi stent with immun ity 0.90- 0.99 Equiv ocal > or = 1.00 Consi stent with immun ity The prese nce of rubel la IgG antib robert sugge sts immun izati on or past or curre nt infec tion with rubel la virus . Not Available [facility] [address], [address], 07/14/2025 00:58:18 07/12/20 25 07/13/2025 CHLAM YDIA/ N.DIANE ORRHO EAE AND T. VAGIN LATASHA RNA, QL TMA chlamydia trachomatis RNA, tma, urogenital NOT DETECT ED not detect ed normal Not Available [facility] - [address], [address], 07/14/2025 00:58:19 07/12/20 25 07/13/2025 CHLAM YDIA/ N.DIANE ORRHO EAE AND T. VAGIN LATASHA RNA, QL TMA neisseria gonorrhoeae RNA, tma, urogenital NOT DETECT ED not detect ed normal Not Available [facility] - [address], [address], 07/14/2025 00:58:19 07/12/2007/13/2025 CHLAM YDIA/ N.DIANE ORRHO EAE AND T. VAGIN LATASHA RNA, QL TMA comment The jamilah tical perfo rmanc e ayan cteri stics of this assay , when used to test SureP ath(T M) speci mens have been deter mined by [facility]. The modif icati ons have not been clear ed or appro yahaira by the FDA. This assay has been valid ated pursu ant to the CLIA regul ation s and is used for clini solomon purpo ses. For addit ional infor rosalva pedraza e refer to https ://ed ucati on.qu estdi Precyse. com/f aq/FA Q154 (This link is being provi ded for infor matio n/ educa lizabeth l purpo ses only. ) Not Available [facility] [address] [address] [place], [address], 07/14/2025 00:58:19 07/12/2007/13/2025 CHLAM YDIA/ N.DIANE ORRHO EAE AND T. VAGIN LATASHA RNA, QL TMA trichomonas vaginalis RNA, ql tma NOT DETECT ED not detect ed normal For addit ional infor matio n, pleas e refer to http: //[facility] shaila n.que stdia gnost ics.c om/ faq/T alexi monchasity tma (This link is being provi ded for infor matio nal/ educa lizabeth l purpo ses only. ) Not Available [facility] [address] [place], [address], 07/14/2025 00:58:19 07/12/2007/13/2025 RPR (DX) W/REF L TITER AND T. PALLI DUM AB, IA RPR (DX) w/refl titer and confirmatory testing NON-RE ACTIVE non-re active normal No labor atory evide nce of syphi lis. If recen t expos ure is suspe cted, submi t a new sampl e in 2-4 weeks . Not Available [facility] [address] [address] [place], [address], 07/14/2025 00:58:19 07/12/2007/13/2025 ANTIB ROBERT SCREE N, RBC W/REF L ID, TITER AND AG antibody screen, RBC w/refl id, titer and Ag NO ANTIBO DIES DETECT ED normal Refer ence range No antib odies detec araceli This assay is a scree gonzalez test for the detec tion of red blood cell antib odies . The test is not to be used for pretr ansfu marv scree gonzalez or for the medic al manag ement of an alloi mmuni zed pregn vibha. Not Available [facility] [address] [place], [address], 07/14/2025 00:58:19 07/12/2007/13/2025 ABO GROUP AND RH TYPE ABO group AB Not Available [address], [address], 07/14/2025 00:58:20 07/12/20 25 07/13/2025 ABO GROUP AND RH TYPE Rh type RH(D) POSITI VE For addit ional infor rosalva pedraza e refer to http: //[facility] shaila Tayia gnost ics.c om/fa q/FAQ 111 (This link is being provi ded for infor rosa isela lyles/ [place] trejo ses only. ) Not Available [address] [address] [place], [address], 07/14/2025 00:58:20 07/12/2007/13/2025 DRUG MONIT OR, PANEL 1, SCREE N, URINE amphetamines NEGATI VE NG/mL <500 See Note A See Note A Not Available [address] , [place], [address], 07/14/2025 00:58:20 07/12/20 25 07/13/2025 DRUG MONIT OR, PANEL 1, SCREE N, URINE barbiturates NEGATI VE NG/mL <300 See Note A See Note A Not Available [address] [address] [place], [address], 07/14/2025 00:58:20 07/12/20 25 07/13/2025 DRUG MONIT OR, PANEL 1, SCREE N, URINE benzodiazepi emre NEGATI VE NG/mL <100 See Note A See Note A Not Available [address] [address] [place], [address], 07/14/2025 00:58:20 07/12/20 25 07/13/2025 DRUG MONIT OR, PANEL 1, SCREE N, URINE cocaine metabolite NEGATI VE NG/mL <150 See Note A See Note A Not Available [address], [place], [address], 07/14/2025 00:58:20 07/12/2007/13/2025 DRUG MONIT OR, PANEL 1, SCREE N, URINE marijuana metabolite POSITI VE NG/mL <20 abnormal See Note A See Note A Not Available [address], [place], [address], 07/14/2025 00:58:20 07/12/2007/13/2025 DRUG MONIT OR, PANEL 1, SCREE N, URINE methadone metabolite NEGATI VE NG/mL <100 See Note A See Note A Not Available [address], [place], [address], 07/14/2025 00:58:20 07/12/2007/13/2025 DRUG MONIT OR, PANEL 1, SCREE N, URINE opiates NEGATI VE NG/mL <100 See Note A See Note A Not Available [address], [place], [address], 07/14/2025 00:58:20 07/12/2007/13/2025 DRUG MONIT OR, PANEL 1, SCREE N, URINE oxycodone NEGATI VE NG/mL <100 See Note A See Note A Not Available [address], [place], [address], 07/14/2025 00:58:20 07/12/2007/13/2025 DRUG MONIT OR, PANEL 1, SCREE N, URINE phencyclidin e NEGATI VE NG/mL <25 See Note A See Note A Not Available [address], [place], [address], 07/14/2025 00:58:20 07/12/20 25 07/13/2025 DRUG MONIT OR, PANEL 1, SCREE N, URINE creatinine 186.6 mg/dL > or = 20.0 Not Available [address], [place], [address], 07/14/2025 00:58:20 07/12/2007/13/2025 DRUG MONIT OR, PANEL 1, SCREE N, URINE pH 7.9 4.5-9. 0 Not Available [facility] [address] [address] [place], [address], 07/14/2025 00:58:20 07/12/2007/13/2025 DRUG MONIT OR, PANEL 1, SCREE N, URINE oxidant NEGATI VE mcg/m L <200 Not Available [facility] [address] [address] [address] , [place], [address], 07/14/2025 00:58:20 07/12/2007/13/2025 DRUG MONIT ORING TEMPL ATE notes and comments This drug testi ng is for medic al treat ment only. Jamilah sis was perfo rmed as non-f orens ic testi ng and these resul ts shoul d be used only by healt hcare provi ders to rende r diagn osis or treat ment, or to monit or progr ess of medic al condi tions . Note A: The resul ts are presu mptiv e; based only on oren berry ds, and they have not been confi rmed by a defin itive methobdulia d. [facility] Pro[facility] ders needi ng Inter preta tion ravindra tance , pleas e conta ct us at 1.877 .40.R XTOX (1.87 [phone] ) M-F, 8am to 10pm EST Not Available [address] [address], [place], [address], 07/14/2025 00:58:20 07/12/2007/13/2025 CULTU RE, URINE , ROUTI NE culture, urine, routine SEE NOTE CULTU RE, URINE , ROUTI NE Micro Numbe r: [id number] Test Statu s: Final Speci men Sourc e: Urine , clean catch Speci men Quali ty: Adequ ate Resul t: Mixed genit al emiliana isola araceli. These super ficia l bacte abelino are not indic ative of a urina ry tract infec tion. No furth er organ ism ident ifica tion is warra nted on this speci men. If clini concepción indic ated, recol lect clean -catc h, mid-s tream urine and trans rody immed iatel y to Urine Cultu re Trans port Tube. Not Available [facility] [id number] [facility] [address] [place], [address], 07/14/2025 00:58:21 Result Notes None recorded. Problems Name Problem SNOMED Code Status Onset Date Resolution Date Notes Provider Name and Address Organization Details Recorded Time [id number] Active 025 [facility] 5 15:17:27 Gestation period, 9 weeks 819807 Active 025 Alexandro Bolanos MD [address] [place] [address], [id number] , [facility] 5 15:46:28 Problem Notes None recorded. Medical Equipment None Reported. Medications Name Sig Start Date Stop Date Status Note LastModified by Organization Details LastModified Time fluoxetine 20 mg capsule Take 1 capsule every day by oral route. active Not Available Not Available No t Available + DHA 28 mg iron-800 mcg-200 mg oral pack Take by oral route. active Not Available Not Available No t Available Vitals Date Recorded Body weight Body mass index (BMI) [Percentile] Per age and sex Body mass index (BMI) Body height Body temperature Oxygen saturation Oxygen saturation in Arterial blood by Pulse oximetry Heart rate Systolic And Diastolic Provider Name and Address Organization Details Last Updated DateTime 5 45626.1 2 g 61 % 22.9 kg/m2 167.64 cm 97.6 [degF] 98 % 98 % 76 /min 98/70 mm[Hg] [facility] 5 15:20:35 Social History Question Answer Notes LastModified by Organizat ion Details LastModified Time Tobacco Smoking Status Never Smoker Marly Deras shaun [facility] 07/12/2025 15:31:01 What Was The Date Of Your Most Recent Tobacco Screening? 07/12/2025 Information not available 07/12/2025 Sex: Unknown Functional Status Question Answer Note LastModified by Organizat ion Details LastModified Time Do you use any illicit or recreational drugs? No [email or web address] Information not available 07/12/2025 What is your level of alcohol consumption? None [email or web address] Information not available 07/12/2025 Mental Status None recorded. Family History Nothing Reported. Medical History No medical history recorded. Gynecological History Statement/Question Response Date of LMP 05/06/2025 Obstetrics History GPAL:G 2 P 0 0 1 0 Type Value Spontaneous 1 Total 2 Immunizations Vaccine Type Date Status Note Provider Nam e and Address Organization Details Recorded Time DTaP-Hep B-IPV 5 completed Not Available [facility] 07/12/2025 15:14:55 Hib (PRP-T) 5 completed Not Available [facility] 07/12/2025 15:14:55 pneumococcal conjugate PCV 7 5 completed Not Available [facility] 07/12/2025 15:14:55 DTaP-Hep B-IPV 5 completed Not Available [facility] 07/12/2025 15:14:55 Hib (PRP-T) 5 completed Not Available [facility] 07/12/2025 15:14:55 pneumococcal conjugate PCV 7 5 completed Not Available [facility] 07/12/2025 15:14:55 DTaP-Hep B-IPV 5 completed Not Available [facility] 07/12/2025 15:14:55 Hib (PRP-T) 5 completed Not Available [facility] 07/12/2025 15:14:55 pneumococcal conjugate PCV 7 5 completed Not Available [facility] 07/12/2025 15:14:55 MMRV 6 completed Not Available [facility] 07/12/2025 15:14:55 pneumococcal conjugate PCV 7 6 completed Not Available [facility] 07/12/2025 15:14:55 meningococcal conjugate quadrivalent, MenACWY-TT (MCV4) 2 completed Not Available [facility] 07/12/2025 15:14:55 Past Encounters Encounter ID Performer Location Encounter Start Date Encounter Closed Date Diagnosis/Indication Diagnosis SNOMED-CT Code Diagnosis ICD10 Code Diagnosis IMO Codes Diagnosis Note [id number] Alexandro Bolanos MD [facility] [address] [place] [address] 07/12/2025 15:09:44 07/12/2025 17:37:54 Normal 63391032 Z34.90 - Complete first trimester ultrasound and continue current fluoxetine regimen.- Utilize small frequent meals to manage morning sickness.- Use vitamin B6 and doxylamine as needed for nausea. Gestation period, 9 weeks [address]792 Z3A.09 0592532 - Continue early monitoring with regular follow-ups . - Obtain routine laboratory studies appropriat e for early care. - Evaluate medical necessity for additional ultrasound s based on previously confirmed pregnancie s and insurance coverage details. Health Concerns Section Related Observation LastModified by Organization Detai ls LastModified Time None Recorded Concern Status LastModified by Organization Details LastModified Time None Recorded Advance Directives Directive None Recorded Payers Insurance Date Sequence Insurance Name Policy Number Policy Crocker Covered Member ID Crocker Member ID Guarantor Name 07/12/2025 2 [facility] (MEDICAID HMO) Jackie Durham [id number] Jackie Durham 07/12/2025 1 [facility] [id number] Ankur Durham [id number] Jackie Durham Notes Date Note Type Note Provider Name and Address Organization Details Recorded Time 5 text/html jr ob routineReported by PatientHPIFor associated symptoms, patient reportscramping,frequency ,urgency,nausea,emesis,co nstipation,diarrhea/loose stool,dizziness, andbreathlessnessbut reportsno abdominal pain,no contractions,normal movement,no bleeding,no rom,no vaginal discharge,no vaginal/vulvar itching or irritation,no dysuria,no hematuria,no fever,no edema,no visual changes,no headache,no decrease in urine volume, andno hyperreflexia. The patient is a 19-year-old female here for supervision of her . She is 9 weeks and 4 days gestation, with a last menstrual period dated April 11, 2025. The patient reports persistent morning sickness and occasional vomiting transiently improving during the day, with exacerbations upon late-night eating. Her past medical history includes polycystic ovarian syndrome diagnosed two months ago, one confirmed miscarriage, and a suspected second miscarriage. Her has been confirmed by two previous ultrasound examinations. She is currently maintained on fluoxetine 20 mg daily. She has received logistical guidance on small, frequent meals to manage nausea, and has been informed about vitamin B6 and doxylamine as potential remedies for her symptoms. - Ultrasound: 8-week scan confirmed ; heart rate measured 170 bpm Alexandro Bolanos MD [address] [place] [address], [id number], [facility], [facility] 07/13/2025 09:35:29 OBGyn Episode Ob Episode Information Episode Created Date Number of Fetuses Patient Bloodtype Patient rh Status Prepregnancy Weight lbs Domestic Partner Domestic Partner Phone Father Name Endbander Status 07/12/20 25 1 AB Positive 135 Tyler Adrián OPEN Fetus Data First Name Last Name Admitted to NICU Weight (g) Sex Living Outcome Pediatric Complications Fetus ID Race Codes Race Delivery Type [id number] Dale Calculation Initial Dale Date Initial Exam Date Initial Exam Provider Initial Ultrasound Date Last Menstrual Period Date Ultra Sound Weeks Gestation 07/12/2025 05/06/2025 0 Eighteen To Twenty Week Dale Update Ultra Sound Date Fundal Height At Umbil Quickening Date Ultra Sound Latest Weeks Gestation Final Dale Confirmed By Final Dale Confirmed Date Final Dale Date Ultra Sound Latest Days Gestation 0 02/11/20 26 0 Pre-alicia Flowsheet Flowsheet Date 07/12/2025 Escudero Score Blood Edema Fundus Height Fundus Units Glucose Ketones Leukocytes Nitrite Labor Signs Protein Cervic Dilation Cervic Effacement Cervic Station Type Weight in lbs Pre/Post Dialysis Refused Weight [id number] BP Diastolic BP Location Tested BP Systolic BP Type 70 98 Fetus Heart Rate Present Fetus Movement Comments Menstrual History Last Menstrual Date Menses Monthly On Bcp Conception Prior Menses Frequency Hcg Plus Date Menarche Onset Age 0805/06/2025 Genetic Screening And Infection History Question Response Note Patient's Age Will Be 35 Years Or Older At Estim ated Date of Delivery false Thalassemia (Albanian, Yi, Mediterranean, Or Background): MCV < 80 false Neural Tube Defect (Meningomyelocele, Spina Bifi da, Or Anencephaly) false Congenital Heart Defect false Down Syndrome false Warren-Sachs (eg, Anabaptism, Cajun, Djiboutian-Polish) f alse Barbra Disease false Sickle Cell Disease Or Trait () false Hemophilia Or Other Blood Disorders false Muscular Dystrophy false Cystic Fibrosis false Aroostook's Chorea false Intellectual Disability/Autism false If Yes, Was Person Tested For Fragile X? false Other Inherited Genetic Or Chromosomal Disorder false Maternal Metabolic Disorder (eg, Type 1 Diabetes , PKU) false Patient Or Baby's Father Had A Child With Defects Not Listed Above false Recurrent Loss, Or A Stillbirth true Medications (including Suppl ements, Vitamins, Herbs, OTC Drugs), Illicit/Recreational Drugs, Alcohol true If Yes, Agent(s) And Strength/Dosage false Any Other Genetic History false Live With Someone With TB Or Exposed To TB false Patient Or Partner Has History Of Genital Herpes false Rash Or Viral Illness Since Last Menstrual Perio d false History Of STD, Gonorrhea, Chlamydia, HPV, Syphi lis false Other Infection History false History of HIV false History of Hepatitis false Prior GBS-infected child false Hemoglobinopathy Or Carrier false Other Structural Defect false Recent Travel History Outside of Country false Mental Retardation/Autism false Delivery Information Delivery Date Delivery Type Labor Anesthesia Weeks Gestation Incision Type Labor Labor Length Hrs Delivered By Post Complications Tubal Sterilization Discharge Date Comments Discharge Information Feeding Method Contraceptive Method Maternal HG B and HCT Levels
--- OUTSIDE RECORDS SUMMARY | 2025-08-07 20:07 | XMS_ITS | Encounter Summary ---
Author Organization [facility] Address [address] [place] [address] Care Team Providers Care Director Supply Name Role Phone Arnoldo Avery MD Primary Care Provider [phone] Encounter Details Date Type Department Care Team (Late Contact Info) Description 06/24/2025 Results Follow-Up [address] [address] Meron Jones, [facility] [address] [address] HCG QUANTITATIVE, BLOOD Social History [...] AM CDT Legal Sex Female 12:05 PM CREMATORIUM OPERATOR Gender Identity Female 06/04/2025 11:50 AM CDT Sexual Orientation Not on file documented as of this encounter Plan of Treatment Upcoming Encounters Date Type Department Care Team (Late Contact Info) Description 11/19/2025 3:40 PM CREMATORIUM OPERATOR Office Visit [address] [address] Meron Jones [facility] [address] [place] [address] 05/03/2026 3:00 PM CDT Office Visit [facility] [address] [place] [address] Meron Jones [facility] [address] [place] [address] documented as of this encounter Visit Diagnoses Not on filedocumented in this encounter Additional Health Concerns Assessment Noted Time PHQ-9 Depression Total Score: 1 10/13/19 25 1:49 PM CREMATORIUM OPERATOR documented as of this encounter Care Teams Director Supply Relationship Specialty Start Date End Date Arnoldo Avery MD [address] [place] [address] PCP - General Family Practice 04/05/23 documented as of this encounter
--- OUTSIDE RECORDS SUMMARY | 2025-08-07 20:07 | XMS_ITS | Encounter Summary ---
Author Organization [facility] Address [address] [place] [address] Care Team Providers Care Chemical Operations And Training Name Role Phone Geraldine Linares MD Primary Care Provider [phone] Encounter Details Date Type Department Care Team (Latest Contact Info) Description 2004 Outpatient Historical [facility] Medicine [place] [address] [phone] Arlette Bourne MD [address] [place] [address] Routine child health exam (Primary Dx); TONGUE TIE Social History Tobacco Use Types Packs/Day Years Used Date Smoking Tobacco: Never Assessed Comments Unknown Sex and Gender Information Value Date Recorded Sex Assigned at Not on file Legal Sex Female 3:17 AM SEPARATOR TENDER Gender Identity Not on file Sexual Orientation Not on file documented as of this encounter Plan of Treatment Not on file documented as of this encounter Visit Diagnoses Diagnosis Routine child health exam- Primary Routine infant or child health check Tongue tie documented in this encounter Care Teams Chemical Operations And Training Relationship Specialty Start Date End Date Geraldine Linares MD [address] [facility] [address] [place] [phone] PCP - General Family Practice 01/20/14 documented as of this encounter
--- OUTSIDE RECORDS SUMMARY | 2025-08-07 20:07 | XMS_ITS | Encounter Summary ---
Author Organization [facility] Address [address] [place] [address] Care Team Providers Care Immigration Paralegal Name Role Phone Geraldine Linares MD Primary Care Provider Encounter Details Date Type Department Care Team (Latest Contact Info) Description 05/29/2005 Outpatient Historical [facility] Medicine [place] [address] [phone] Shanthi Hi, BANQUET ATTENDANT [address] [place] [address] OTITIS MEDIA NOS (Primary Dx) Social History Tobacco Use Types Packs/Day Years Used Date Smoking Tobacco: Never Assessed Comments Unknown Sex and Gender Information Value Date Recorded Sex Assigned at Not on file Legal Sex Female 3:17 AM SUPERVISOR CYTOLOGY Gender Identity Not on file Sexual Orientation Not on file documented as of this encounter Plan of Treatment Not on file documented as of this encounter Visit Diagnoses Diagnosis Unspecified otitis media- Primary documented in this encounter Care Teams Immigration Paralegal Relationship Specialty Start Date End Date Geraldine Linares MD [address] [phone] PCP - General Family Practice 01/20/14 documented as of this encounter
--- OUTSIDE RECORDS SUMMARY | 2025-08-07 20:07 | XMS_ITS | Encounter Summary ---
Author Organization [facility] Address [address] [place] [address] Care Team Providers Care Telecom Network Manager Name Role Phone Arnoldo Avery MD Primary Care Provider [phone] Encounter Details Date Type Department Care Team (Late Contact Info) Description 10/14/2024 Results Follow-Up [facility] Emergency Medicine [address] [address] Miesha Wilkins RN GC/CHLAMYDIA, UROGENITAL [...] AM CDT Legal Sex Female 12:05 PM TRANSPORTATION ANALYST Gender Identity Female 06/04/2025 11:50 AM CDT Sexual Orientation Not on file documented as of this encounter Plan of Treatment Upcoming Encounters Date Type Department Care Team (Late Contact Info) Description 11/19/2025 3:40 PM TRANSPORTATION ANALYST Office Visit [facility] [address] [address] Meron Jones, [facility] [address] [address] 05/03/2026 3:00 PM CDT Office Visit [facility] [address] [address] Meron Jones FNP [address] [address] documented as of this encounter Visit Diagnoses Not on filedocumented in this encounter Additional Health Concerns Assessment Noted Time PHQ-9 Depression Total Score: 1 10/13/19 25 1:49 PM TRANSPORTATION ANALYST documented as of this encounter Care Teams Telecom Network Manager Relationship Specialty Start Date End Date Arnoldo Avery MD [address] [address] PCP - General Family Practice 04/05/23 documented as of this encounter
--- OUTSIDE RECORDS SUMMARY | 2025-08-07 20:07 | XMS_ITS | Encounter Summary ---
Author Organization [facility] Address [address] [place] [address] Care Team Providers Care Tax Collector Name Role Phone Geraldine Linares MD Primary Care Provider [phone] Encounter Details Date Type Department Care Team (Latest Contact Info) Description 2004 [facility] [address] [place] [address] Shanthi Hi, TOP EXECUTIVE [address] [place] [phone] Routine child health exam (Primary Dx) Social History Tobacco Use Types Packs/Day Years Used Date Smoking Tobacco: Never Assessed Comments Unknown Sex and Gender Information Value Date Recorded Sex Assigned at Not on file Legal Sex Female 3:17 AM BONBON CREAM WARMER Gender Identity Not on file Sexual Orientation Not on file documented as of this encounter Plan of Treatment Not on file documented as of this encounter Visit Diagnoses Diagnosis Routine child health exam- Primary Routine infant or child health check documented in this encounter Care Teams Tax Collector Relationship Specialty Start Date End Date Geraldine Linares MD [address] [facility] [place] [address] PCP - General Family Practice 01/20/14 documented as of this encounter
--- OUTSIDE RECORDS SUMMARY | 2025-08-07 20:08 | XMS_ITS | Encounter Summary ---
Author Organization [facility] Address [address] [place] [address] Care Team Providers Care Cell Attendant Name Role Phone Arnoldo Avery MD Primary Care Provider [phone] Encounter Details Date Type Department Care Team ([facility] Contact Info) Description 04/05/2023 Lab Requisition [facility] Laboratory Services [place] [address] [facility] [address] [place] [address] Meron Jones, [facility] [address] [place] [address] Encounter for test, result positive [...] AM CDT Legal Sex Female 12:05 PM CAMERA ENGINEER Gender Identity Female 06/04/2025 11:50 AM CDT [...] st Contact Info) Description 11/19/2025 3:40 PM CAMERA ENGINEER Office Visit [facility] [address] [place] [address] Meron Jones HVAC PROJECT MANAGER [address] [place] [address] 05/03/2026 3:00 PM CDT Office Visit [facility] [address] [place] [address] Meron Jones FNP [address] [place] [address] documented as of this encounter Procedures Procedure Name Priority Date/Time Associated Diagnosis Comments RH (D) TYPE Stat 04/05/2023 1:56 PM CDT Encounter for test, result positive HCG QUANTITATIVE, BLOOD Stat 04/05/2023 1:56 PM CDT Encounter for test, result positive documented in this encounter Results * RH (D) TYPE (04/05/2023 1:56 PM CDT) RH (D) TYPE Positive 04/05/2023 2:24 PM CDT [facility] Blood Venipuncture / Unknown 04/05/2023 1:56 PM CDT 04/05/2023 1:56 PM CDT Meron Jones [facility] BLOOD BANK ORDERABLES Fi nal Result [facility] CLIA # [id number] [address] [address] * (ABNORMAL) HCG QUANTITATIVE, BLOOD (04/05/2023 1:56 PM CDT) HCG QUANT, BLOOD 13.3(H) <=1.0 mIU/mL 04/05/2023 2:23 PM CDT [facility] Blood Venipuncture / Unknown 04/05/2023 1:56 PM CDT 04/05/2023 1:56 PM CDT Narrative [facility] - 04/05/2023 2:23 PM CDT Gestational Age hCG mIU/mL 0.2-1 week 5 - 50 1-2 weeks 50 - 500 2-3 weeks 100 - 5000 3-4 weeks 500 - 99858 4-5 weeks 1000 - 52377 5-6 weeks 41730 - 226519 6-8 weeks [address] - 185906 2-3 months [address] - 499685 A false positive and/or falsely elevated total may result from exogenous administration of hCG (medically supervised or unsupervised) Meron Jones HVAC PROJECT MANAGER CHEMISTRY ORDERABLES Fin al Result [facility] CLIA # [id number] [address] [address] documented in this encounter Visit Diagnoses Diagnosis Encounter for test, result positive examination or test, positive result documented in this encounter Additional Health Concerns Assessment Noted Time PHQ-9 Depression Total Score: 1 04/05/20 23 1:17 PM CDT documented as of this encounter Care Teams Cell Attendant Relationship Specialty Start Date End Date Arnoldo Avery MD [address] [phone] PCP - General Family Practice 04/05/23 documented as of this encounter
--- OUTSIDE RECORDS SUMMARY | 2025-08-07 20:08 | XMS_ITS | Encounter Summary ---
Author Organization [facility] Address [address] [place] [address] Care Team Providers Care Staying Machine Operator Name Role Phone Geraldine Linares MD Primary Care Provider Encounter Details Date Type Department Care Team (Latest Contact Info) Description 08/12/2006 Outpatient Historical [facility] [address] [place] [address] Shanthi Hi, VIOLIN MECHANIC [address] [place] [phone] Acute Pharyngitis (Primary Dx); Unspecified Otitis Media Social History Tobacco Use Types Packs/Day Years Used Date Smoking Tobacco: Never Assessed Comments Unknown Sex and Gender Information Value Date Recorded Sex Assigned at Not on file Legal Sex Female 3:17 AM PRIMARY PRODUCTS INSPECTORS Gender Identity Not on file Sexual Orientation Not on file documented as of this encounter Plan of Treatment Not on file documented as of this encounter Visit Diagnoses Diagnosis Acute pharyngitis- Primary Unspecified otitis media documented in this encounter Care Teams Staying Machine Operator Relationship Specialty Start Date End Date Geraldine Linares MD [address] [facility] [address] [place] [address] PCP - General Family Practice 01/20/14 documented as of this encounter
--- OUTSIDE RECORDS SUMMARY | 2025-08-07 20:08 | XMS_ITS | Encounter Summary ---
Author Organization [facility] Address [address] [place] [address] Care Team Providers Care Spindle Sander Name Role Phone Geraldine Linares MD Primary Care Provider Encounter Details Date Type Department Care Team (Latest Contact Info) Description 01/22/2007 Outpatient Historical [facility] [address] [place] [address] Shanthi Hi, SENIOR MICROSOFT CONSULTANT [address] [place] [phone] Other General Medical Examination for Administrative Purposes (Primary Dx) Social History Tobacco Use Types Packs/Day Years Used Date Smoking Tobacco: Never Assessed Comments Unknown Sex and Gender Information Value Date Recorded Sex Assigned at Not on file Legal Sex Female 3:17 AM BENEFITS CONSULTANT Gender Identity Not on file Sexual Orientation Not on file documented as of this encounter Plan of Treatment Not on file documented as of this encounter Visit Diagnoses Diagnosis Other general medical examination for administrative purposes- Primary documented in this encounter Care Teams Spindle Sander Relationship Specialty Start Date End Date Geraldine Linares MD [address] [facility] [place] [address] PCP - General Family Practice 01/20/14 documented as of this encounter
--- OUTSIDE RECORDS SUMMARY | 2025-08-07 20:08 | XMS_ITS | Encounter Summary ---
Author Organization [facility] Address [address] [place] [address] Care Team Providers Care Duco Polisher Name Role Phone Geraldine Linares MD Primary Care Provider Encounter Details Date Type Department Care Team (Latest Contact Info) Description 2004 Outpatient Historical [facility] Medicine [place] [address] [phone] Arlette Bourne MD [address] [place] [address] ACUTE URI NOS (Primary Dx); TONGUE TIE Social History Tobacco Use Types Packs/Day Years Used Date Smoking Tobacco: Never Assessed Comments Unknown Sex and Gender Information Value Date Recorded Sex Assigned at Not on file Legal Sex Female 3:17 AM GARDEN LABOURER Gender Identity Not on file Sexual Orientation Not on file documented as of this encounter Plan of Treatment Not on file documented as of this encounter Visit Diagnoses Diagnosis Acute upper respiratory infections of unspecified site- Primary Tongue tie documented in this encounter Care Teams Duco Polisher Relationship Specialty Start Date End Date Geraldine Linares MD [address] [facility] [address] [place] [address] PCP - General Family Practice 01/20/14 documented as of this encounter
--- OUTSIDE RECORDS SUMMARY | 2025-08-07 20:08 | XMS_ITS | Encounter Summary ---
Author Organization [facility] Address [address] [place] [address] Care Team Providers Care Proofsheet Corrector Name Role Phone Geraldine Linares MD Primary Care Provider Encounter Details Date Type Department Care Team (Latest Contact Info) Description 2004 Outpatient Historical [facility] Medicine [place] [address] [phone] Arlette Bourne MD [address] [place] [phone] Routine child health exam (Primary Dx) Social History Tobacco Use Types Packs/Day Years Used Date Smoking Tobacco: Never Assessed Comments Unknown Sex and Gender Information Value Date Recorded Sex Assigned at Not on file Legal Sex Female 3:17 AM LEAD SYSTEMS ANALYST Gender Identity Not on file Sexual Orientation Not on file documented as of this encounter Plan of Treatment Not on file documented as of this encounter Visit Diagnoses Diagnosis Routine child health exam- Primary Routine infant or child health check documented in this encounter Care Teams Proofsheet Corrector Relationship Specialty Start Date End Date Geraldine Linares MD [address] [facility] [address] [place] [address] PCP - General Family Practice 01/20/14 documented as of this encounter
--- OUTSIDE RECORDS SUMMARY | 2025-08-07 20:08 | XMS_ITS | Encounter Summary ---
Author Organization [facility] Address [address] [place] [address] Care Team Providers Care Client Insights Consultant Name Role Phone Geraldine Linares MD Primary Care Provider Encounter Details Date Type Department Care Team (Late st Contact Info) Description 11/24/2007 Outpatient Historical [address] [address] Shanthi Hi FNP [address] [place] [phone] Social History Tobacco Use Types Packs/Day Years Used Date Smoking Tobacco: Never Assessed Comments Unknown Sex and Gender Information Value Date Recorded Sex Assigned at Not on file Legal Sex Female 3:17 AM POWER PLANT TECHNICIAN Gender Identity Not on file Sexual Orientation [...] week or before as needed. SAULO Villarreal [facility] Electronically Signed by SAULO Villarreal 12/02/2007 16:52 , tony Montiel Document #: [id number] cc: documented in this encounter Plan of Treatment Not on file documented as of this encounter Procedures Procedure Name Priority Date/Time Associated Diagnosis Comments POC RAPID STREP A ANTIGEN Stat 11/24/2007 2:30 PM POWER PLANT TECHNICIAN documented in this encounter Results * POC RAPID STREP A (11/24/2007 2:30 PM POWER PLANT TECHNICIAN) RAPID STREP NEGATIVE NEG [facility] PERFORMED IN OFFICE 11/24/2007 2:30 PM POWER PLANT TECHNICIAN 11/24/2007 2:35 PM POWER PLANT TECHNICIAN us German Ramos DO POINT OF CARE TESTING Final Res ult [facility] PERFORMED IN OFFICE documented in this encounter Visit Diagnoses Not on filedocumented in this encounter Care Teams Client Insights Consultant Relationship Specialty Start Date End Date Geraldine Linares MD [address] [phone] PCP - General Family Practice 01/20/14 documented as of this encounter
--- OUTSIDE RECORDS SUMMARY | 2025-08-07 20:08 | XMS_ITS | Encounter Summary ---
Author Organization [facility] Address [address] [place] [address] Care Team Providers Care Block Mechanic Name Role Phone Arnoldo Avery MD Primary Care Provider [phone] Encounter Details Date Type Department Care Team (Late Contact Info) Description 07/02/2025 Results Follow-Up [address] [address] Meron Jones, [facility] [address] [address] [place] OB LESS THAN 14 [...] AM CDT Legal Sex Female 12:05 PM SCHOOL CROSSING GUARD SUPERVISOR Gender Identity Female 06/04/2025 11:50 AM CDT Sexual Orientation Not on file documented as of this encounter Plan of Treatment Upcoming Encounters Date Type Department Care Team (Late Contact Info) Description 11/19/2025 3:40 PM SCHOOL CROSSING GUARD SUPERVISOR Office Visit [address] [address] Meron Jones, [facility] [address] [place] [address] 05/03/2026 3:00 PM CDT Office Visit [facility] [address] [place] [address] Meron Jones [facility] [address] [place] [address] documented as of this encounter Visit Diagnoses Not on filedocumented in this encounter Additional Health Concerns Assessment Noted Time PHQ-9 Depression Total Score: 1 10/13/19 25 1:49 PM SCHOOL CROSSING GUARD SUPERVISOR documented as of this encounter Care Teams Block Mechanic Relationship Specialty Start Date End Date Arnoldo Avery MD [address] [place] [address] PCP - General Family Practice 04/05/23 documented as of this encounter
--- OUTSIDE RECORDS SUMMARY | 2025-08-07 20:08 | XMS_ITS | Encounter Summary ---
Author Organization [facility] Address [address] [place] [address] Care Team Providers Care Patient Financial Services Coordinator Name Role Phone Geraldine Linares MD Primary Care Provider Encounter Details Date Type Department Care Team (Latest Contact Info) Description 11/07/2006 Outpatient Historical [facility] Medicine [place] [address] [phone] Shanthi Hi, MILLER APPRENTICE [address] [place] [phone] Other Conjunctivitis (Primary Dx) Social History Tobacco Use Types Packs/Day Years Used Date Smoking Tobacco: Never Assessed Comments Unknown Sex and Gender Information Value Date Recorded Sex Assigned at Not on file Legal Sex Female 3:17 AM CLOTHING SORTER Gender Identity Not on file Sexual Orientation Not on file documented as of this encounter Plan of Treatment Not on file documented as of this encounter Visit Diagnoses Diagnosis Other conjunctivitis- Primary documented in this encounter Care Teams Patient Financial Services Coordinator Relationship Specialty Start Date End Date Geraldine Linares MD [address] [phone] PCP - General Family Practice 01/20/14 documented as of this encounter
--- OUTSIDE RECORDS SUMMARY | 2025-08-07 20:09 | XMS_ITS | Encounter Summary ---
Author Organization [facility] Address [address] [place] [address] Care Team Providers Care Securities Compliance Examiner Name Role Phone Arnoldo Avery MD Primary Care Provider [phone] Encounter Details Date Type Department Care Team ([facility] Contact Info) Description 06/09/2025 Lab Requisition [facility] Laboratory Services [place] [address] [address] Meron Jones, [facility] [address] [address] Social History Tobacco Use Types [...] AM CDT Legal Sex Female 12:05 PM ATM TECHNICIAN Gender Identity Female 06/04/2025 11:50 AM CDT Sexual Orientation Not on file documented as of this encounter Plan of Treatment Upcoming Encounters Date Type Department Care Team (Late Contact Info) Description 11/19/2025 3:40 PM ATM TECHNICIAN Office Visit [facility] [place] [address] [address] Meron Jones, [facility] [address] [place] [address] 05/03/2026 3:00 PM CDT Office Visit [facility] [address] [place] [address] Meron Jones, [facility] [address] [place] [address] documented as of this encounter Procedures Procedure Name Priority Date/Time Associated Diagnosis Comments CBC WITH DIFFERENTIAL Stat 06/09/2025 3:10 PM CDT HCG QUANTITATIVE, BLOOD Stat 06/09/2025 3:10 PM CDT documented in this encounter Results * (ABNORMAL) CBC WITH DIFFERENTIAL (06/09/2025 3:10 PM CDT) WBC 4.1 4.0 - 10.0 K/uL 06/09/2025 3:32 PM CDT [facility] RBC 4.70 3.93 - 5.22 M/uL 06/09/2025 3:32 PM CDT [facility] HEMOGLOBIN 12.3 11.2 - 15.7 g/dL 06/09/2025 3:32 PM CDT [facility] HEMATOCRIT 35.9 34.1 - 44.9 % 06/09/2025 3:32 PM CDT [facility] MCV 76.4(L) 79.4 - 94.8 fL 06/09/2025 3:32 PM CDT [facility] MCH 26.2 25.6 - 32.2 pg 06/09/2025 3:32 PM CDT [facility] MCHC 34.3 32.2 - 35.5 g/dL 06/09/2025 3:32 PM CDT [facility] RDW 13.6 11.0 - 14.5 % 06/09/2025 3:32 PM CDT [facility] RDW-STDEV 37.8 36.9 - 56.9 fL 06/09/2025 3:32 [facility] PLATELETS 231 163 - 337 K/uL 06/09/2025 3:32 PM [facility] MPV 10.6 10.0 - 14.8 fL 06/09/2025 3:32 PM [facility] NEUTROPHILS 66 34 - 71 % 06/09/2025 3:32 PM [facility] LYMPHOCYTES 22 19 - 52 % 06/09/2025 3:32 PM [facility] MONOCYTES 10 5 - 13 % 06/09/2025 3:32 PM [facility] EOSINOPHILS 3 1 - 6 % 06/09/2025 3:32 PM [facility] BASOPHILS 0 0 - 1 % 06/09/2025 3:32 PM [facility] IMMATURE GRANULOCYTES 0 % 06/09/2025 3:32 PM [facility] NEUTROPHIL ABSOLUTE 2.67 1.56 - 6.13 K/uL 06/09/2025 3:32 PM [facility] LYMPHOCYTE ABSOLUTE 0.88(L) 1.20 - 3.40 K/uL 06/09/2025 3:32 PM [facility] MONOCYTE ABSOLUTE 0.41(H) 0.24 - 0.36 K/uL 06/09/2025 3:32 PM [facility] EOSINOPHIL ABSOLUTE 0.10 0.04 - 0.36 K/uL 06/09/2025 3:32 PM [facility] BASOPHILS ABSOLUTE 0.01 0.01 - 0.08 K/uL 06/09/2025 3:32 PM [facility] IMMATURE GRANULOCYTES ABSOLUTE 0.01 K/uL 06/09/2025 3:32 PM [facility] Blood 06/09/2025 3:10 PM CDT 06/09/2025 3:13 PM CDT us Meron Jones ENROLLMENT MANAGEMENT MANAGER HEMATOLOGY ORDERABLES Fi nal Result [facility] CLIA # [id number] [address] [place] [address] * (ABNORMAL) HCG QUANTITATIVE, BLOOD (06/09/2025 3:10 PM CDT) HCG QUANT, BLOOD 3,286.0(H ) <=1.0 mIU/mL 06/09/2025 3:41 PM CDT [facility] Comment: Male <= 2 mIU/mL [...] CDT 06/09/2025 3:13 PM CDT Meron Jones ENROLLMENT MANAGEMENT MANAGER CHEMISTRY ORDERABLES Fin al Result [facility] CLIA # [id number] [address] [place] [address] documented in this encounter Visit Diagnoses Not on filedocumented in this encounter Additional Health Concerns Assessment Noted Time PHQ-9 Depression Total Score: 1 10/13/19 25 1:49 PM ATM TECHNICIAN documented as of this encounter Care Teams Securities Compliance Examiner Relationship Specialty Start Date End Date Arnoldo Avery MD [address] [address] PCP - General Family Practice 04/05/23 documented as of this encounter
--- OUTSIDE RECORDS SUMMARY | 2025-08-07 20:09 | XMS_ITS | Encounter Summary ---
Author Organization [facility] Address [address] [place] [address] Care Team Providers Care Small Engine Technician Name Role Phone Arnoldo Avery MD Primary Care Provider [phone] [phone] Reason for Visit * Reason Onset Date Comments Results 06/09/2025 Encounter Details Date Type Department Care Team (Latest Contact Info) Description 06/09/2025 Results Follow-Up [facility] Medicine [place] [address] [address] Meron Jones, [facility] [address] [address] HCG QUANTITATIVE, BLOOD, CBC WITH [...] AM CDT Legal Sex Female 12:05 PM LINE HAUL OWNER OPERATOR Gender Identity Female 06/04/2025 11:50 AM [...] st Contact Info) Description 11/19/2025 3:40 PM LINE HAUL OWNER OPERATOR Office Visit [facility] [address] [place] [address] Meron Jones FNP [address] [place] [address] 05/03/2026 3:00 PM CDT Office Visit [facility] [address] [place] [address] Meron Jones FNP [address] [place] [address] documented as of this encounter Visit Diagnoses Not on filedocumented in this encounter Additional Health Concerns Assessment Noted Time PHQ-9 Depression Total Score: 1 10/13/19 25 1:49 PM LINE HAUL OWNER OPERATOR documented as of this encounter Care Teams Small Engine Technician Relationship Specialty Start Date End Date Arnoldo Avery MD [address] [place] [address] PCP - General Family Practice 04/05/23 documented as of this encounter
--- OUTSIDE RECORDS SUMMARY | 2025-08-07 20:09 | XMS_ITS | Encounter Summary ---
Author Organization [facility] Address [address] [place] [address] Care Team Providers Care Live Source Operator Name Role Phone Geraldine Linares MD Primary Care Provider Encounter Details Date Type Department Care Team (Latest Contact Info) Description 06/12/2006 Outpatient [facility] [address] [place] [address] Shanthi Hi, SECRETARY OF POLICE [address] [place] [phone] Acute Pharyngitis (Primary Dx) Social History Tobacco Use Types Packs/Day Years Used Date Smoking Tobacco: Never Assessed Comments Unknown Sex and Gender Information Value Date Recorded Sex Assigned at Not on file Legal Sex Female 3:17 AM RULING TECHNICIAN Gender Identity Not on file Sexual Orientation Not on file documented as of this encounter Plan of Treatment Not on file documented as of this encounter Visit Diagnoses Diagnosis Acute pharyngitis- Primary documented in this encounter Care Teams Live Source Operator Relationship Specialty Start Date End Date Geraldine Linares MD [address] [facility] [address] [place] [address] PCP - General Family Practice 01/20/14 documented as of this encounter
--- OUTSIDE RECORDS SUMMARY | 2025-08-07 20:09 | XMS_ITS | Encounter Summary ---
Author Organization [facility] Address [address] [place] [address] Care Team Providers Care Sheet Metal Foreman Name Role Phone Geraldine Linares MD Primary Care Provider Encounter Details Date Type Department Care Team (Latest Contact Info) Description 02/06/2006 Outpatient Historical [facility] [address] [place] [address] Shanthi Hi, ORIENTAL MEDICINE PRACTITIONER [address] [place] [phone] Superficial Injury NEC (Primary Dx) Social History Tobacco Use Types Packs/Day Years Used Date Smoking Tobacco: Never Assessed Comments Unknown Sex and Gender Information Value Date Recorded Sex Assigned at Not on file Legal Sex Female 3:17 AM SUPERVISOR DATA PROCESSING Gender Identity Not on file Sexual Orientation Not on file documented as of this encounter Plan of Treatment Not on file documented as of this encounter Visit Diagnoses Diagnosis Other and unspecified superficial injury of other, multiple, and unspecified sites, without mention of infection- Primary documented in this encounter Care Teams Sheet Metal Foreman Relationship Specialty Start Date End Date Geraldine Linares MD [address] [place] [phone] PCP - General Family Practice 01/20/14 documented as of this encounter
--- OUTSIDE RECORDS SUMMARY | 2025-08-07 20:09 | XMS_ITS | Encounter Summary ---
Author Organization [facility] Address [address] [place] [address] Care Team Providers Care Trimming Department Blocker Name Role Phone Geraldine Linares MD Primary Care Provider Encounter Details Date Type Department Care Team (Latest Contact Info) Description 10/23/2005 Outpatient Historical [facility] Medicine [place] [address] [phone] Shanthi Hi, BOOK COVERER [address] [place] [phone] ACUTE PHARYNGITIS (Primary Dx) Social History Tobacco Use Types Packs/Day Years Used Date Smoking Tobacco: Never Assessed Comments Unknown Sex and Gender Information Value Date Recorded Sex Assigned at Not on file Legal Sex Female 3:17 AM FASHION MARKETER Gender Identity Not on file Sexual Orientation Not on file documented as of this encounter Plan of Treatment Not on file documented as of this encounter Visit Diagnoses Diagnosis Acute pharyngitis- Primary documented in this encounter Care Teams Trimming Department Blocker Relationship Specialty Start Date End Date Geraldine Linares MD [address] [phone] PCP - General Family Practice 01/20/14 documented as of this encounter
--- OUTSIDE RECORDS SUMMARY | 2025-08-07 20:09 | XMS_ITS | Encounter Summary ---
Author Organization [facility] Address [address] [place] [address] Care Team Providers Care Transformer Coil Winder Name Role Phone Geraldine Linares MD Primary Care Provider Encounter Details Date Type Department Care Team (Latest Contact Info) Description 04/10/2006 [facility]patient [facility] [address] [place] [address] Shanthi Hi, LINUX SYSTEM ADMINISTRATOR [address] [place] [phone] Acute Upper Respiratory Infections of Unspecified Site (Primary Dx) Social History Tobacco Use Types Packs/Day Years Used Date Smoking Tobacco: Never Assessed Comments Unknown Sex and Gender Information Value Date Recorded Sex Assigned at Not on file Legal Sex Female 3:17 AM BUSINESS MGR Gender Identity Not on file Sexual Orientation Not on file documented as of this encounter Plan of Treatment Not on file documented as of this encounter Visit Diagnoses Diagnosis Acute upper respiratory infections of unspecified site- Primary documented in this encounter Care Teams Transformer Coil Winder Relationship Specialty Start Date End Date Geraldine Linares MD [address] [facility] [address] [place] [address] PCP - General Family Practice 01/20/14 documented as of this encounter
--- OUTSIDE RECORDS SUMMARY | 2025-08-07 20:09 | XMS_ITS | Encounter Summary ---
Author Organization [facility] Address [address] [place] [address] Care Team Providers Care Ironing Pleater Name Role Phone Arnoldo Avery MD Primary Care Provider [phone] Encounter Details Date Type Department Care Team (Late Contact Info) Description 06/10/2025 Lab Requisition [facility] Laboratory Services [place] [address] [address] Meron Jones, [facility] [address] [address] related conditions, unspecified, first trimester [...] AM CDT Legal Sex Female 12:05 PM BOAT HOP Gender Identity Female 06/04/2025 11:50 AM CDT Sexual Orientation Not on file documented as of this encounter Plan of Treatment Upcoming Encounters Date Type Department Care Team (Late Contact Info) Description 11/19/2025 3:40 PM BOAT HOP Office Visit [facility] Medicine [place] [address] [address] Meron Jones Yesi, [facility] [address] [place] [address] 05/03/2026 3:00 PM CDT Office Visit [facility] [address] [place] [address] Karen Meron Yesi, [facility] [address] [place] [address] documented as of this encounter Procedures Procedure Name Priority Date/Time Associated Diagnosis Comments HCG QUANTITATIVE, BLOOD Stat 06/10/2025 1:33 PM CDT related conditions, unspecified, first trimester documented in this encounter Results * (ABNORMAL) HCG QUANTITATIVE, BLOOD (06/10/2025 1:33 PM CDT) HCG QUANT, BLOOD 4,887.0(H ) <=1.0 mIU/mL 06/10/2025 1:57 PM CDT [facility] Comment: Male <= 2 mIU/mL Female Non [...] 06/10/2025 1:33 PM CDT us Meron Jones MEDIA/INSTRUCTIONAL DESIGNER CHEMISTRY ORDERABLES Fin al Result [id number] [address] [address] documented in this encounter Visit Diagnoses Diagnosis related conditions, unspecified, first trimester documented in this encounter Additional Health Concerns Assessment Noted Time PHQ-9 Depression Total Score: 1 10/13/19 25 1:49 PM BOAT HOP documented as of this encounter Care Teams Ironing Pleater Relationship Specialty Start Date End Date Arnoldo Avery MD [address] [phone] PCP - General Family Practice 04/05/23 documented as of this encounter
--- OUTSIDE RECORDS SUMMARY | 2025-08-07 20:09 | XMS_ITS | Encounter Summary ---
Author Organization [facility] Address [address] [place] [address] Care Team Providers Care Transcription Typist Name Role Phone Geraldine Linares MD Primary Care Provider Encounter Details Date Type Department Care Team (Latest Contact Info) Description 09/18/2005 Outpatient Historical [facility] Family Medicine- [address] [place] [phone] Sierra Baxter NP NO ADDRESS ON FILE [...] media documented in this encounter Care Teams Transcription Typist Relationship Specialty Start Date End Date Geraldine Linares MD [address] [facility] [address] [place] [address] PCP - General Family Practice 01/20/14 documented as of this encounter
--- OUTSIDE RECORDS SUMMARY | 2025-08-07 20:10 | XMS_ITS | Encounter Summary ---
Author Organization [facility] Address [address] [place] [address] Care Team Providers Care Kitchen Utility Associate Name Role Phone Arnoldo Avery MD Primary Care Provider [phone] Encounter Details Date Type Department Care Team (Late Contact Info) Description 06/18/2025 Results Follow-Up [address] [address] Meron Jones, [facility] [address] [address] HCG QUANTITATIVE, BLOOD Social History [...] AM CDT Legal Sex Female 12:05 PM JOURNEYMAN LEVEL ACOUSTIC ANALYST Gender Identity Female 06/04/2025 11:50 AM CDT Sexual Orientation Not on file documented as of this encounter Plan of Treatment Upcoming Encounters Date Type Department Care Team (Late Contact Info) Description 11/19/2025 3:40 PM JOURNEYMAN LEVEL ACOUSTIC ANALYST Office Visit [address] [address] [facility] [address] [place] [address] 05/03/2026 3:00 PM CDT Office Visit [facility] [address] [place] [address] [facility] [address] [place] [address] documented as of this encounter Visit Diagnoses Not on filedocumented in this encounter Additional Health Concerns Assessment Noted Time PHQ-9 Depression Total Score: 1 10/13/19 25 1:49 PM JOURNEYMAN LEVEL ACOUSTIC ANALYST documented as of this encounter Care Teams Kitchen Utility Associate Relationship Specialty Start Date End Date Arnoldo Avery MD [address] [place] [address] PCP - General Family Practice 04/05/23 documented as of this encounter
--- OUTSIDE RECORDS SUMMARY | 2025-08-07 20:10 | XMS_ITS | Clinical Summary ---
Author Organization [facility] Address [address] [place] [address] Care Team Providers Care Golf Ball Inspector Name Role Phone Geraldine Linares MD Primary Care Provider [phone] Allergies No known active allergies Medications Polycarbophil [...] on file Legal Sex Female 3:17 AM JOURNEYMAN MECHANIC Gender Identity Not on file Sexual Orientation Not on file Occupation Industry Job Start Date Job End Date Not on file Not on file Not on file Not on file Last Filed Vital Signs Vital Sign Reading Time Taken Comments Blood Pressure 98/54 08/09/2015 3:15 PM JOURNEYMAN MECHANIC Pulse 84 08/09/2015 3:15 PM JOURNEYMAN MECHANIC Temperature 37.1 C (98.7 F) 08/09/2015 3:15 PM JOURNEYMAN MECHANIC Respiratory Rate 16 08/09/2015 3:15 PM JOURNEYMAN MECHANIC Oxygen Saturation 99% 08/09/2015 3:15 PM JOURNEYMAN MECHANIC Inhaled Oxygen Concentration - - Weight 44.5 kg (98 lb) 08/09/2015 3:15 PM JOURNEYMAN MECHANIC Height 147.3 cm (4' 10 ) 08/09/2015 3:15 PM JOURNEYMAN MECHANIC Body Mass Index 20.48 08/09/2015 3:15 PM JOURNEYMAN MECHANIC Plan of Treatment Health Maintenance Due Date Last Done Comments HEPATITIS B VACCINES (3 of 3 - 3-dose series) 05/30/2005 04/04/2005, 01/12/2005 CHLAMYDIA SCREENING (ANNUAL) 11-24 YEARS 2015 DTAP/TDAP/TD VACCINES (5 - Tdap) 2015 11/22/2009, 05/12/2009, 04/04/2005, Additional history exists HPV VACCINES (1 - 3-dose series) 2019 Preventative Visit-Managed Medicaid 2023 11/22/2009, 2004 INFLUENZA VACCINE (#1) 2025 Insurance MEDICAID [place] Care Teams Golf Ball Inspector Relationship Specialty Start Date End Date Geraldine Linares MD [facility] [address] [phone] PCP - General Family Practice 01/20/14
--- OUTSIDE RECORDS SUMMARY | 2025-08-07 20:10 | XMS_ITS | Clinical Summary ---
Author Organization [facility] Address [address] Adam: Epic Prelude ADT ROBERT LOPEZ [address] Care Team Providers Care Epic Willow Specialist Name Role Phone Arnoldo Avery MD Primary Care Provider [phone] Allergies No known active allergies Medications ferrous [...] Provider, Abstract 07/12/2025 Orders Only [facility] Medicine [place] [address] [facility] [address] [place] [phone] Meron Jones FNP 07/06/2025 External Device Data STL ABSTRACTION Provider, Abstract 07/05/2025 Orders Only [facility] [address] [place] [address] Meron Jones FNP 07/02/2025 Results Follow-Up [facility] [address] [place] [address] Meron Jones FNP US OB LESS THAN 14 WKS SINGLE + TRANSVAG 07/01/2025 11:51 AM CDT - 07/01/2025 11:59 PM CDT Hospital Encounter [facility] Ultrasound [place] [address] [place] [phone] Meron Jones FNP Discharge Disposition: Home or Self Care 06/30/2025 Orders Only [address] [place] [address] Meron Jones, LIANNE Vaginal bleeding during (Primary Dx); Complication related to , first trimester 06/28/2025 Orders Only [address] [place] [address] Meron Jones FNP 06/24/2025 Results Follow-Up [address] [place] [address] Meron Jones FNP HCG QUANTITATIVE, BLOOD 06/21/2025 Orders Only [facility] [address] [place] [address] Meron Jones FNP 06/18/2025 Results Follow-Up [address] [place] [address] Meron Jones FNP HCG QUANTITATIVE, BLOOD 06/14/2025 Orders Only [address] [place] [address] Meron Jones FNP 06/11/2025 Orders Only [facility] [address] [place] [address] Angelita Nolasco LPN Complication related to , first trimester 06/11/2025 Results Follow-Up [facility] [address] [place] [address] Meron Jones FNP US OB LESS THAN 14 WKS SINGLE + TRANSVAG 06/11/2025 Orders Only [facility] [address] [place] [address] Meron Jones FNP Complication related to , first trimester 06/10/2025 1:25 PM CDT - 06/10/2025 11:59 PM CDT Hospital Encounter [facility] Outpatient Laboratory Services [place] [address] [place] [address] Meron Jones FNP Discharge Disposition: Home or Self Care 06/10/2025 Results Follow-Up [facility] [address] [place] [address] Meron Jones FNP HCG QUANTITATIVE, BLOOD 06/10/2025 Orders Only [facility] [address] [place] [address] Dawn Grant RN Complication related to , first trimester 06/10/2025 Telephone [facility] [address] [place] [address] Arnoldo Avery MD Medication Assistance 06/10/2025 Lab Requisition [facility] General Laboratory Services [place] [address] [place] [phone] Meron Jones FNP related conditions, unspecified, first trimester 06/09/2025 2:51 PM CDT - 06/09/2025 11:59 PM CDT Hospital Encounter [facility] Outpatient Laboratory Services [place] [address] [address] Meron Jones FNP Discharge Disposition: Home or Self Care 06/09/2025 2:40 PM CDT Office Visit [address] [address] Meron Jones FNP Pre-syncope (Primary Dx); Iron deficiency anemia, unspecified iron deficiency anemia type; PCOS (polycystic ovarian syndrome); Complication related to , first trimester; Vaginal bleeding during 06/09/2025 Results Follow-Up [address] [address] Meron Jones FNP HCG QUANTITATIVE, BLOOD, CBC WITH DIFFERENTIAL 06/09/2025 Lab Requisition [facility] Laboratory [address] [address] Meron Jones FNP 06/08/2025 External Device Data STL ABSTRACTION Provider, Abstract 06/04/[address] [phone] Arnoldo Avery MD Patient Communication 05/19/2025 3:00 PM CDT Office Visit [address] [phone] Meron Jones FNP Iron deficiency anemia, unspecified iron deficiency anemia type (Primary Dx); Moderate episode of recurrent major depressive disorder ([facility]/HCC); Anxiety 05/19/2025 11:56 AM CDT - 05/19/2025 11:59 PM CDT Hospital Encounter [address] [address] Meron Jones FNP Discharge Disposition: Home or [...] PERTUSSIS, HEPATITIS B, AND INACTIVATED POLIOVIRUS VACCINE ([id number]), 0.5ML, IM 06/12/2005,04/04/2005,01/12/2005 (PROQUAD)(12 MOS-12 YRS)EDITH LES, [...] History Relation Name Comments Healthy Father Grant Crumpler Colon Cancer Maternal Grandfather Eduardo Checo Healthy Maternal Grandfather Eduardo Checo High Cholesterol Maternal Grandfather Eduardo Checo Healthy Maternal Grandmother Azalia Nair High Cholesterol Maternal Grandmother Azalia Nair Depression Mother Cristeen Crumpler Healthy Mother Cristblanca Crumpler Heart Disease Mother Cristeen Crumpler Stroke Mother Cristeen Crumpler Colon Cancer Other ggm Diabetes Paternal Grandfather Jayce Crumpler Healthy Paternal Grandfather Jayce Crumpler High Cholesterol Paternal Grandfather Jayce Crumpler Healthy Paternal Grandmother Lilian Crumpler High Cholesterol Paternal Grandmother Lilian Crumpler Anemia Sister Jayna Woodse Breast Cancer Neg Hx Relation Name Status Comments Father Grant Crumpler Alive Maternal Grandfather Eduardo Checo Alive Maternal Grandmother Azalia Nair Alive Mother Cristblanca Crumpler Alive Other ggm Paternal Grandfather Jayce Crumpler Alive Paternal Grandmother Lilian Crumpler Alive Sister Jayna Woodse Alive Social History [...] AM CDT Legal Sex Female 12:05 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 Pathologist [facility] HCG QUANT, BLOOD 13521 mIU/mL [facility] Comment: Gestational Age Expected hCG values (mIU/mL) <1 Week: 5-50 1-2 Weeks: 50-500 2-3 Weeks: 100-5000 3-4 Weeks: 500-46317 4-5 Weeks: 1000-87417 5-6 Weeks: [address] 6-8 Weeks: [address] 2-3 Months: [address] The table above provides only a very [...] or approved by the FDA or the cold meat chef of the assay. FASTING:UNKNOWN FASTING: UNKNOWN Test Performed at: [facility] [address] [place] [address] Janki Sanches MD Blood 06/23/2025 2:11 PM CDT 06/23/2025 2:15 PM CDT Meron Jones [facility] CHEMISTRY ORDERABLES Fin al Result [facility] [phone] [facility] [address] [place] [address] * (ABNORMAL) CBC WITH DIFFERENTIAL (06/09/2025 3:10 PM CDT) WBC 4.1 4.0 - 10.0 K/uL 06/09/2025 3:32 PM CDT [facility] RBC 4.70 3.93 - 5.22 M/uL 06/09/2025 3:32 PM [facility] HEMOGLOBIN 12.3 11.2 - 15.7 g/dL 06/09/2025 3:32 PM [facility] HEMATOCRIT 35.9 34.1 - 44.9 % 06/09/2025 3:32 PM [facility] MCV 76.4(L) 79.4 - 94.8 fL 06/09/2025 3:32 PM [facility] MCH 26.2 25.6 - 32.2 pg 06/09/2025 3:32 PM [facility] MCHC 34.3 32.2 - 35.5 g/dL 06/09/2025 3:32 PM [facility] RDW 13.6 11.0 - 14.5 % 06/09/2025 3:32 PM [facility] RDW-STDEV 37.8 36.9 - 56.9 fL 06/09/2025 3:32 PM [facility] PLATELETS 231 163 - 337 K/uL 06/09/2025 3:32 PM [facility] MPV 10.6 10.0 - 14.8 fL 06/09/2025 3:32 PM [facility] NEUTROPHILS 66 34 - 71 % 06/09/2025 3:32 PM [facility] LYMPHOCYTES 22 19 - 52 % 06/09/2025 3:32 PM [facility] MONOCYTES 10 5 - 13 % 06/09/2025 3:32 PM [facility] EOSINOPHILS 3 1 - 6 % 06/09/2025 3:32 PM [facility] BASOPHILS 0 0 - 1 % 06/09/2025 3:32 PM CDT [facility] IMMATURE GRANULOCYTES 0 % 06/09/2025 3:32 PM CDT [facility] NEUTROPHIL ABSOLUTE 2.67 1.56 - 6.13 K/uL 06/09/2025 3:32 PM CDT [facility] LYMPHOCYTE ABSOLUTE 0.88(L) 1.20 - 3.40 K/uL 06/09/2025 3:32 PM CDT [facility] MONOCYTE ABSOLUTE 0.41(H) 0.24 - 0.36 K/uL 06/09/2025 3:32 PM CDT [facility] EOSINOPHIL ABSOLUTE 0.10 0.04 - 0.36 K/uL 06/09/2025 3:32 PM CDT [facility] BASOPHILS ABSOLUTE 0.01 0.01 - 0.08 K/uL 06/09/2025 3:32 PM CDT [facility] IMMATURE GRANULOCYTES ABSOLUTE 0.01 K/uL 06/09/2025 3:32 PM CDT [facility] Blood 06/09/2025 3:10 PM CDT 06/09/2025 3:13 PM CDT us Meron Jones MERCHANDISE COORDINATOR HEMATOLOGY ORDERABLES Fi nal Result [id number] [address] [place] [address] * COMPREHENSIVE METABOLIC PANEL (06/05/2025 2:18 PM [...] possibility of polycystic ovarian syndrome. Meron Jones [facility] US ORDERABLES Final Re sult * HELICOBACTER PYLORI ANTIGEN, STOOL (05/11/2025 4:04 PM CDT) H. PYLORI AG, STOOL SEE NOTE [facility] Comment: HELICOBACTER PYLORI AG, EIA, STOOL Micro Number: [id number] Test Status: Final Specimen Source: Stool Specimen [...] Detected FASTING:UNKNOWN FASTING: UNKNOWN Test Performed at: [facility] [place] [address] [place] [address] Janki Sanches Stool STOOL SPECIMEN / Unknown 05/11/2025 4:04 PM CDT 05/12/2025 3:10 AM CDT Meron Jones MERCHANDISE COORDINATOR BODY FLUIDS AND STOOLS F inal Result [facility] [phone] [facility] [address] [place] [address] * VAGINOSIS/VAGINITIS PANEL PLUS (05/03/2025 3:25 PM CDT) BACTERIAL VAGINOSIS NEGATIVE NEGATIVE [facility] [place] LAURA SPECIES NOT DETECTED NOT DETECTED [facility] [place] LAURA GLABRATA NOT DETECTED NOT DETECTED [facility] [place] Comment: Laura species C. albicans, C. tropicalis, C. parapsilosis, and/or C. dubliniensis can be detected, but not differentiated, in the Laura spp. result. TRICHOMONAS VAGINALIS (TV), TMA NOT DETECTED NOT DETECTED [facility] [place] CHLAMYDIA TRACHOMATIS RNA, TMA, UROGENITAL NOT DETECTED NOT DETECTED [facility] [place] NEISSERIA GONORRHOEAE RNA, TMA, UROGENITAL NOT DETECTED NOT DETECTED [facility] [place] Comment: For additional information, please refer to https://education.Embrace/faq/DBM596 (This link is being provided for information/ educational purposes only.) Test Performed at: [facility] [address] [place] [address] Janki Sanches MD Genital SPECIMEN FROM VAGINA / Unknown 05/03/2025 3:25 PM CDT 05/04/2025 3:55 AM CDT Meron ELP MICROBIOLOGY - GENERAL O RDERABLES Final Result Performing Organization Address City/State/[facility] Co de Phone Number [facility] [phone] [facility] [address] [facility] [place] [address] from Last 3 Months or Most Recently Relevant to Health Maintenance Insurance [facility] HE[employer] PLAN MEDICAID [facility] [address] [place] [id number] Care Teams Epic Willow Specialist Relationship Specialty Start Date End Date Arnoldo Avery MD [address] [phone] PCP - General Family Practice 04/05/23
--- NOTE | 2025-08-07 20:43 | ECG_ITS ---
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 Measurements Intervals Warrior Rate: 95 P: 67 WV: 130 QRS: 69 QRSD: 85 T: 55 QT: 329 QTc: 415 Interpretive Statements SINUS RHYTHM WITH SINUS ARRHYTHMIA No previous ECG available for comparison Electronically Signed On 08-08-2025 15:12:56 GPS NAVIGATION INSTALLER by Maco Lundberg M.D. [email or web address]
[2025-08-07 20:53] VITALS: BP 114/66; PULSE 124; O2SAT 100
--- NOTE | 2025-08-07 21:01 | ED_ITS ---
HPI - 2 General: Chief complaint: OB/Uterine Contractions Stated complaint: stated water broke yesterday 13 wk fever shaking Time Seen by Provider: 08/07/25 20:28 History of Present Illness: Patient is a 19-year-old female with 13-week , presents to ED with tachycardia, fever. Yesterday, patient had large gush of fluid, and was diagnosed with rupture of membranes as per OB. She presents to the ED due to fever at home. She states 101 ?F. There is no fever in triage. She does have tachycardia in the 120s. She complains of vaginal pain, mild bleeding/discharge. The pain was just prior to arrival. No recent intercourse Associated symptoms: Reports vaginal discharge; Deny abdominal pain, headache(s), nausea or vomiting Related Data Home Medications ?Medication ?Instructions ?Recorded ?Confirmed fluoxetine 20 mg capsule 20 mg PO DAILY 06/05/2507/24 vitamins no.167-folic 1 tab PO DAILY 06/20/25 08/06/25 acid 400 mcg-dha 25 mg chewable tablet (One-A-Day ) acetaminophen 325 mg tablet 325 mg PO QID PRN Fever Or Pain 07/28/25 08/06/25 (Tylenol) Previous Rx's ?Medication ?Instructions ?Recorded hydrocodone 5 mg-acetaminophen 325 1 tab PO Q6H PRN pa in #7 tabs 08/06/25 mg tablet amoxicillin 875 mg-potassium 1 tab PO Q12H #20 tabs clavulanate 125 mg tablet Allergies Allergy/AdvReac Type Severity Reaction Status Date / Time No Known Allergies Allergy Verified 08/04/25 10:44 Review of Systems 2 General: Reports: 10 or more systems reviewed and unremarkable except in HPI and below Const: Denies: fever(s) or chills Eyes: Denies: change in vision or blurry vision ENMT: Denies: throat pain or nasal discharge Card: Denies: chest pain or palpitations Resp: Denies: dyspnea or non-productive cough GI: Denies: abdominal pain, nausea or vomiting : Reports: vaginal bleeding, vaginal discharge and pelvic pain; Denies: flank pain or difficulty voiding Musc: Denies: neck pain or back pain Skin/Breast: Denies: rash, pruritus or erythema Neuro: Denies: headache(s) or numbness in extremities Psych: Reports: anxiety; Denies: depression PFSH ED 2 PFSH: Medical History (Updated 08/07/25 @ 22:47 by SHER Wallis) No pertinent past medical history neghx: dvt/pe, thyroid, dm, htn PCP: [facility] Surgical History No pertinent past surgical history Family History Grandmother Colon cancer Social History Smoking and tobacco/nicotine status: never used tobacco/nicotine Physical Exam 2 Const: COMMON NORMALS: no acute distress, average body habitus, patient oriented x3, no limitations, healthy appearing, alert and well nourished G ENERAL APPEARANCE: cooperative, comfortable and well kempt HENMT: COMMON NORMALS: normocephalic and atraumatic HEAD & SCALP: n ormocephalic and atraumatic MOUTH: Normal oral and palatal mucosa present, lip normal and tongue normal Chest: COMMONS NORMALS: normal inspection of the chest and normal palpation of entire chest wall Resp: COMMON NORMALS: normal respiratory effort, No retractions and No use of accessory muscles GI: COMMON NORMALS: Normal to inspection, nondistended, normoactive bowel sounds present, Soft to palpation and non-tender PALPATION: Yes Soft to palpation : COMMON NORMALS: Yes no CVA tenderness BLADDER/KIDNEY EXAM: Yes no CVA tenderness Back/Pelvis: COMMON NORMALS: no CVA tenderness and thoracic and lumbar spine normal to inspection Extremity: COMMON NORMALS: normal to inspection, full ROM and capillary refill normal Neuro: COMMON NORMALS: patient oriented x3 SENSORIUM/ORIENTATION: Yes alert Psych: COMMON NORMALS: cooperative APPEARANCE: Yes well kempt ATTITUDE: Yes bizarre and Yes agitated ACTIVITY/MOTOR BEHAVIOR: Yes fidgeting and Yes Avoids eye contact (attititude/behavior) MOOD & AFFECT: Yes sad, Yes tearful and Yes fearful INSIGHT: Limited insight present (Psych) Course 2 Reevaluation(s): Reevaluation #1: Improved after Toradol, Compazine, and Ativan Consultations: Consultation #1: Discussed with Dr. Barrera, agrees with plan of outpatient antibiotics, Augmentin, call early Saturday morning to have ultrasound on Saturday at clinic. Patient is to return to ED for fever. No need to repeat ultrasound at this time. Vital Signs: Vital signs: Vital Signs Temperature 98.3 F 08/07/25 20:06 Pulse Rate 124 H 08/07/25 20:53 Respiratory Rate 20 H 08/07/25 20:06 Blood Pressure 114/66 08/07/25 20:53 Pulse Oximetry 100 08/07/25 20:53 Oxygen Delivery Me thod Room Air 08/07/25 20:06 MDM - OB/Uterine Contractions Medical Decision Making Patient is a 19-year-old 13 weeks 3 days, rupture membranes yesterday. She complained of pelvic pain which improved after Toradol, Compazine, and Ativan. heart tones were 105. This does not appear to be a viable . Heart rate decreased to 90s after IV fluids, and Zosyn was given. Discussed the case with on-call FLIGHT CREW TIME CLERK, that recommends return to ED for documented fever, and will repeat ultrasound on Saturday. He will have patient call the office to schedule. She has an appointment with Dr. Lunsford at 4 PM. I have discussed with her to call in the morning when the office opens at 8 or 9 AM to set up her ultrasound before her appointment. She has not developed any additional fever while she is in the ER. She has Graham at home. She has been placed on cultures, lactic acid is negative, she does not have leukocytosis, and minimal neutrophilia. I discussed this case with FLIGHT CREW TIME CLERK with significant concerns regarding uterine infection, however as noted no fever has returned. Augmentin was sent to the pharmacy. All of this information has been discussed with the patient. Lab Data 08/07/25 20:54 08/07/25 20:54 Laboratory Results WBC 12.90 10^3/uL (4.5-13.0) 08/07/25 20:54 RBC 4.17 10^6/uL (3.85-5.65) 08/07/25 20:54 Hgb 11.30 g/dL (12.4-14.8) L 08/07/25 20:54 Hct 33.0 % (36-47) L 08/07/25 20:54 MCV 79.1 fl (85-98) L 08/07/25 20:54 MCH 27.1 pg (27-33) 08/07/25 20:54 MCHC 34.2 g/dL (30-55) 08/07/25 20:54 RDW 13.8 % (12.1-15.1) 08/07/25 20:54 Plt Count 249 10^3/cmm (157-399) 08/07/25 20:54 MPV 10.3 fL (7.4-10.4) 08/07/25 20:54 Neut % (Auto) 87.2 % 08/07/25 20:54 Lymph % (Auto) 4.5 % 08/07/25 20:54 [place] % (Auto) 7.4 % 08/07/25 20:54 Eos % (Auto) 0.2 % 08/07/25 20:54 Baso % (Auto) 0.2 % 08/07/25 20:54 Neut # (Auto) 11.26 10^3/uL (1.8-8.0) H 08/07/25 20:54 Lymph # (Auto) 0.6 10^3/uL (1.5-6.5) L 08/07/25 20:54 [place] # (Auto) 1.0 10^3/uL (0.2-0.9) H 08/07/25 20:54 Eos # (Auto) 0.0 10^3/uL (0.0-0.8) 08/07/25 20:54 Baso # (Auto) 0.0 10^3/uL (0.0-0.1) 08/07/25 20:54 Nucleated RBC % (auto) 0 % 08/07/25 20:54 Nucleated RBCs # 0.0 /100WBC 08/07/25 20:54 Sodium 134 mmol/L (136-145) L 08/07/25 20:54 Potassium 3.7 mmol/L (3.5-5.1) 08/07/25 20:54 Chloride 100 mmol/L (98-107) 08/07/25 20:54 Carbon Dioxide 24 mmol/L (22-29) 08/07/25 20:54 Anion Gap 13.7 (5-19) 08/07/25 20:54 BUN 5 mg/dL (6-20) L 08/07/25 20:54 Creatinine 0.6 mg/dL (0.5-0.9) 08/07/25 20:54 GFR Calculation 127.5 mL/min (90-130) 08/07/25 20: Glucose 140 mg/dL (65-115) H 08/07/25 20:54 Calculated Osmolality 278 mOsm/kg (285-295) L 08/07/25 20: Lactic Acid 1.4 mmol/L (0.5-2.2) 08/07/25 20: Calcium 9.0 mg/dL (8.5-10.5) 08/07/25 20: Total Bilirubin 0.3 mg/dL (0.15-1.2) 08/07/25 20: AST 11 U/L (0-32) 08/07/25 20: ALT 8 U/L (0-33) 08/07/25 20: Alkaline Phosphatase 70 U/L (35-105) 08/07/25 20: C-Reactive Protein 51.4 mg/L (0.0-4.9) H 08/07/25 20: Total Protein 6.7 g/dL (6.6-8.7) 08/07/25 20: Albumin 3.7 g/dL (3.5-5.2) 08/07/25 20: Globulin 3.0 g/dL (1.3-4.6) 08/07/25 20: Ser , Semi-Qnt 84162.00 mIU/mL 08/07/25 20: Urine Color Yellow (Yellow) 08/07/25 21: Urine Appearance Cloudy (CLEAR) A 08/07/25: Urine pH 6.5 (5-7) 08/07/25: Ur Specific [place] 1.020 (1.005-1.030) 08/07/25 21: Urine Protein Trace (Negative) A 08/07/25: Urine Glucose (UA) Negative (Normal) 08/07/25 21: Urine Ketones 2+ (Negative) H 08/07/25 21: Urine Blood 3+ (Negative) A 08/07/25 21: Urine Nitrate Negative (Negative) 08/07/25: Urine Bilirubin Negative (Negative) 11/15/25 21:04 Urine Urobilinogen 1.0 mg/dL (Negative) 08/07/25 21:04 Ur Leukocyte Esterase 2+ (Negative) A 08/07/25 21:04 Urine RBC 21-50 /hpf (0-2) H 08/07/25 21:04 Urine WBC >100 /hpf (0-5) H 08/07/25 21:04 Ur Squamous Epith Cells 0-5 /hpf (0-5) 08/07/25 21:04 Amorphous Sediment Not Reportable 08/07/25 21:04 Urine Bacteria None seen /hpf (NONE) 08/07/25 21:04 Hyaline Casts 1.21 /lpf 08/07/25 21:04 Urine Opiates Screen Positive ng/mL (Negative) H 08/07/25 21:04 Ur Barbiturates Screen Negative ng/mL (Negative) 08/07/25 21:04 Ur Phencyclidine Scrn Negative ng/mL (Negative) 08/07/25 21:04 Ur Amphetamines Screen Negative ng/mL (Negative) 08/07/25 21:04 U Benzodiazepines Scrn Negative ng/mL (Negative) 08/07/25 21:04 Urine Cocaine Screen Negative ng/mL (Negative) 08/07/25 21:04 U Marijuana (THC) Screen Positive ng/mL (Negative) H 08/07/25 21:04 Influenza A (PCR) Negative (Negative) 08/07/25 21:04 Influenza Type B (PCR) Negative (Negative) 08/07/25 21:04 RSV (PCR) Negative (Negative) 08/07/25 21:04 SARS-CoV-2 (PCR) Negative (Negative) 08/07/25 21:04 No radiology studies performed this visit EKG Data EKG 1: Interpretation: Normal sinus rhythm, normal axis, rate 95 Discharge Plan Discharge Patient Disposition: Home Clinical Impression: Incomplete miscarriage, Second trimester bleeding Premature labor Qualifiers: labor trimester: second trimester labor delivery status: w ithout delivery Qualified Code(s): O60.02 - labor without delivery, second trimester Condition: Stable Prescriptions: New amoxicillin-pot clavulanate 875-125 mg tablet 1 tab PO Q12H Qty: 20 0RF No Action acetaminophen [Tylenol] 325 mg tablet 325 mg PO QID PRN (Reason: Fever Or Pain) hydrocodone-acetaminophen 5-325 mg tablet 1 tab PO Q6H PRN (Reason: pain) Qty: 7 0RF fluoxetine 20 mg capsule 20 mg PO DAILY One-A-Day 400 mcg- 25 mg Tablet,Chewable 1 tab PO DAILY Discharge Orders: Discharge ED (Routine); Ordered 08/07/25 Ordered By: Peg Potter Referrals: Meron Jones [Primary Care Provider, Family Practice] Discharge Diet: Usual diet Discharge Activity: Limit activity as instructed Patient Instructions: Miscarriage (ED), Patient Portal & Payam Instructions Activity Restrictions/Additional Instructions: - Set your alarm to call the office Saturday morning a.m. to discuss having your ultrasound on Saturday. I discussed your case with Dr. Lunsford's partner, Dr. Barrera. He plans on ultrasound Saturday. - Your antibiotics was sent to the pharmacy. You need to obtain these in the morning and start them in the morning - Return to the ED if you have a fever greater than 100.4 ?F or gross bleeding - Increase your water intake - You also have a UTI, and the antibiotics will cover for UTI. Your culture is pending Thank you for choosing [facility] for your healthcare needs today. You have been screened and evaluated and felt safe for discharge. Health conditions do change or evolve sometimes and as such it is important that you follow up with your Primary Doctor to be re checked, 3-5 days is a general good time frame for follow up. You are always welcome to return to the ED for re assessment if your symptoms are worsening or you have new concerns Print Language: Marshallese Coding Level of Care Code ED Squash Centre Manager for Padmini Ortiz
[2025-08-07 21:11] LABS: Hematocrit 33.0 % (36-47); Hemoglobin 11.30 g/dL (12.4-14.8); Mean Corpuscular HGB Conc 34.2 g/dL (30-55); Mean Corpuscular Hemoglobin 27.1 pg (27-33); Mean Corpuscular Volume 79.1 fl (85-98); Nucleated Red Blood Cells % 0 %; Platelet Count 249 10^3/cmm (157-399); Red Blood Count 4.17 10^6/uL (3.85-5.65); White Blood Count 12.90 10^3/uL (4.5-13.0)
[2025-08-07 21:25] LABS: Glucose Urine UA Negative (Normal); Nitrate Urine Negative (Negative); Specific Gravity, Urine 1.020 (1.005-1.030)
[2025-08-07 21:29] LABS: Lactic Sepsis W/Reflex 1.4 mmol/L (0.5-2.2)
[2025-08-07 21:30] LABS: Alanine Aminotransferase 8 U/L (0-33); Albumin Level 3.7 g/dL (3.5-5.2); Alkaline Phosphatase 70 U/L (35-105); Anion Gap 13.7 (5-19); Aspartate Amino Transferase 11 U/L (0-32); Blood Urea Nitrogen 5 mg/dL (6-20); Calcium 9.0 mg/dL (8.5-10.5); Carbon Dioxide 24 mmol/L (22-29); Chloride 100 mmol/L (98-107); Globulin 3.0 g/dL (1.3-4.6); Glucose 140 mg/dL (65-115); Osmolality Calculated 278 mOsm/kg (285-295); Potassium 3.7 mmol/L (3.5-5.1); Sodium 134 mmol/L (136-145); Total Protein 6.7 g/dL (6.6-8.7)
[2025-08-07 21:30] LABS: Add Urine Microscopic? YES
[2025-08-07 21:34] LABS: PCP Screen Urine Negative (Negative)
[2025-08-07] MEDS: piperacillin-tazobactam 4.5 GM in sodium chloride 0.9% (plus) 50 ML IV (21:40)
[2025-08-07 22:02] LABS: Respiratory Syncytial Virus Ce NEGATIVE (Negative); SARS-CoV-2 PCR NEGATIVE (Negative)
== END 2025-08-07 23:24 | disposition home or self-care (01) ==
PROVIDERS: Emergency Provider Physician Assistant; PCP Registered Nurse
DX: O03.4 Incomplete spontaneous abortion without complication (principal); R50.9 Fever, unspecified; O60.02 Preterm labor without delivery, second trimester; Z11.52 Encounter for screening for COVID-19
CPT/HCPCS: 36415; 80053; 80306; 81001; 83605; 84702; 85025; 86140; 87040; 87086; 87637; 93005; 96374; 96375; 99284; J0780; J1885; J2543; J9999

== ENCOUNTER 2025-08-09 00:31 | Emergency (ER) | payer OTHER, MEDICAID, SELFPAY ==
[2025-08-09 00:31] VITALS: BP 126/69; PULSE 94; RESP 18; TEMP 36.4; O2SAT 100; BMI 22.6
--- OUTSIDE RECORDS SUMMARY | 2025-08-09 00:36 | XMS_ITS | Encounter Summary ---
Author Organization [facility] Address [address] [place] [address] Care Team Providers Care Ironmolder Name Role Phone Geraldine Linares MD Primary Care Provider [phone] Encounter Details Date Type Department Care Team (Latest Contact Info) Description 01/22/2007 Outpatient Historical [facility] [address] [place] [address] Shanthi Hi, PLAY BACK OPERATOR [address] [place] [phone] Other General Medical Examination for Administrative Purposes (Primary Dx) Social History Tobacco Use Types Packs/Day Years Used Date Smoking Tobacco: Never Assessed Comments Unknown Sex and Gender Information Value Date Recorded Sex Assigned at Not on file 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
--- OUTSIDE RECORDS SUMMARY | 2025-08-09 00:36 | XMS_ITS | Encounter Summary ---
Author Organization [facility] Address [address] [place] [address] Care Team Providers Care Diesel Mechanic Farm Name Role Phone Arnoldo Avery MD Primary Care Provider [phone] Encounter Details Date Type Department Care Team ([facility] Contact Info) Description 04/05/2023 Lab Requisition [facility] Laboratory Services [place] [address] [facility] [address] [place] [address] Meron Jones, [facility] [address] [place] [address] Encounter for test, result positive [...] AM CDT Legal Sex Female 12:05 PM ROOFER METAL Gender Identity Female 06/04/2025 11:50 AM CDT [...] st Contact Info) Description 11/19/2025 3:40 PM ROOFER METAL Office Visit [facility] [address] [place] [address] Meron Jones XEROX MACHINE OPERATOR [address] [place] [address] 05/03/2026 3:00 PM CDT Office Visit [facility] [address] [place] [address] Meron Jones FNP [address] [place] [address] documented as of this encounter Procedures Procedure Name Priority Date/Time Associated Diagnosis Comments RH (D) TYPE Stat 04/05/2023 1:56 PM CDT Encounter for test, result positive HCG QUANTITATIVE, BLOOD Stat 04/05/2023 1:56 PM CDT Encounter for test, result positive documented in this encounter Results * RH (D) TYPE (04/05/2023 1:56 PM CDT) RH (D) TYPE Positive 04/05/2023 2:24 PM CDT [facility] Blood Venipuncture / Unknown 04/05/2023 1:56 PM CDT 04/05/2023 1:56 PM CDT Meron Jones [facility] BLOOD BANK ORDERABLES Fi nal Result [facility] CLIA # [id number] [address] [address] * (ABNORMAL) HCG QUANTITATIVE, BLOOD (04/05/2023 1:56 PM CDT) HCG QUANT, BLOOD 13.3(H) <=1.0 mIU/mL 04/05/2023 2:23 PM CDT [facility] Blood Venipuncture / Unknown 04/05/2023 1:56 PM CDT 04/05/2023 1:56 PM CDT Narrative [facility] - 04/05/2023 2:23 PM CDT Gestational Age hCG mIU/mL 0.2-1 week 5 - 50 1-2 weeks 50 - 500 2-3 weeks 100 - 5000 3-4 weeks 500 - 63188 4-5 weeks 1000 - 97070 5-6 weeks [address] - 224538 6-8 weeks 58987 - 728900 2-3 months [address] - 538912 A false positive and/or falsely elevated total may result from exogenous administration of hCG (medically supervised or unsupervised) Meron Jones XEROX MACHINE OPERATOR CHEMISTRY ORDERABLES Fin al Result [facility] CLIA # [id number] [address] [address] documented in this encounter Visit Diagnoses Diagnosis Encounter for test, result positive examination or test, positive result documented in this encounter Additional Health Concerns Assessment Noted Time PHQ-9 Depression Total Score: 1 04/05/20 23 1:17 PM CDT documented as of this encounter Care Teams Diesel Mechanic Farm Relationship Specialty Start Date End Date Arnoldo Avery MD [address] [phone] PCP - General Family Practice 04/05/23 documented as of this encounter
--- OUTSIDE RECORDS SUMMARY | 2025-08-09 00:36 | XMS_ITS | Encounter Summary ---
Author Organization [facility] Address [address] [place] [address] Care Team Providers Care Crisis Intervention Counselor Name Role Phone Geraldine Linares MD Primary Care Provider Encounter Details Date Type Department Care Team (Late st Contact Info) Description 11/24/2007 Outpatient Historical [address] [address] Shanthi Hi FNP [address] [place] [address] Social History Tobacco Use Types Packs/Day Years Used Date Smoking Tobacco: Never Assessed Comments Unknown Sex and Gender Information Value Date Recorded Sex Assigned at Not on file Legal Sex Female 3:17 AM MARKETING OUTREACH COORDINATOR Gender Identity Not on file Sexual Orientation [...] week or before as needed. SAULO Villarreal [facility] Electronically Signed by SAULO Villarreal 12/02/2007 16:52 , tony Montiel Document #: [id number] cc: documented in this encounter Plan of Treatment Not on file documented as of this encounter Procedures Procedure Name Priority Date/Time Associated Diagnosis Comments POC RAPID STREP A ANTIGEN Stat 11/24/2007 2:30 PM MARKETING OUTREACH COORDINATOR documented in this encounter Results * POC RAPID STREP A (11/24/2007 2:30 PM MARKETING OUTREACH COORDINATOR) RAPID STREP NEGATIVE NEG [facility] 11/24/2007 2:30 PM MARKETING OUTREACH COORDINATOR 11/24/2007 2:35 PM MARKETING OUTREACH COORDINATOR us German Ramos DO POINT OF CARE TESTING Final Res ult [facility] documented in this encounter Visit Diagnoses Not on filedocumented in this encounter Care Teams Crisis Intervention Counselor Relationship Specialty Start Date End Date Geraldine Linares MD [address] [phone] PCP - General Family Practice 01/20/14 documented as of this encounter
--- OUTSIDE RECORDS SUMMARY | 2025-08-09 00:36 | XMS_ITS | Clinical Summary ---
Author Organization [facility] Address [address] Adam: Epic Prelude ADT ROBERT LOPEZ [address] Care Team Providers Care Neurology Tech Name Role Phone Arnoldo Avery MD Primary Care Provider [phone] Allergies No known active allergies Medications ferrous [...] STL ABSTRACTION Provider, Abstract 07/12/2025 Orders Only [facility] [place] [address] [facility] [address] [place] [phone] Meron Jones FNP 07/06/2025 External Device Data STL ABSTRACTION Provider, Abstract 07/05/2025 Orders Only [facility] [address] [place] [address] Meron Jones FNP 07/02/2025 Results Follow-Up [facility] [address] [place] [address] Meron Jones FNP US OB LESS THAN 14 WKS SINGLE + TRANSVAG 07/01/2025 11:51 AM CDT - 07/01/2025 11:59 PM CDT Hospital Encounter [facility] Ultrasound [place] [address] [place] [phone] Meron Jones FNP Discharge Disposition: Home or Self Care 06/30/2025 Orders Only [address] [place] [address] Meron Jones, LIANNE Vaginal bleeding during (Primary Dx); Complication related to , first trimester 06/28/2025 Orders Only [address] [place] [address] Meron Jones FNP 06/24/2025 Results Follow-Up [address] [place] [address] Meron Jones FNP HCG QUANTITATIVE, BLOOD 06/21/2025 Orders Only [facility] [address] [place] [address] Meron Jones FNP 06/18/2025 Results Follow-Up [address] [place] [address] Meron Jones FNP HCG QUANTITATIVE, BLOOD 06/14/2025 Orders Only [address] [place] [address] Meron Jones FNP 06/11/2025 Orders Only [facility] [address] [place] [address] Angelita Nolasco LPN Complication related to , first trimester 06/11/2025 Results Follow-Up [facility] [address] [place] [address] Meron Jones FNP US OB LESS THAN 14 WKS SINGLE + TRANSVAG 06/11/2025 Orders Only [facility] [address] [place] [address] Meron Jones FNP Complication related to , first trimester 06/10/2025 1:25 PM CDT - 06/10/2025 11:59 PM CDT Hospital Encounter [facility] Outpatient Laboratory Services [place] [address] [place] [address] Meron Jones FNP Discharge Disposition: Home or Self Care 06/10/2025 Results Follow-Up [facility] [address] [place] [address] Meron Jones FNP HCG QUANTITATIVE, BLOOD 06/10/2025 Orders Only [facility] [address] [place] [address] Dawn Grant RN Complication related to , first trimester 06/10/2025 Telephone [facility] [address] [place] [address] Arnoldo Avery MD Medication Assistance 06/10/2025 Lab Requisition [facility] General Laboratory Services [place] [address] [place] [address] Meron Jones FNP related conditions, unspecified, first trimester 06/09/2025 2:51 PM CDT - 06/09/2025 11:59 PM CDT Hospital Encounter [facility] Outpatient Laboratory Services [place] [address] [address] Meron Jones FNP Discharge Disposition: Home or Self Care 06/09/2025 2:40 PM CDT Office Visit [address] [address] Meron Jones FNP Pre-syncope (Primary Dx); Iron deficiency anemia, unspecified iron deficiency anemia type; PCOS (polycystic ovarian syndrome); Complication related to , first trimester; Vaginal bleeding during 06/09/2025 Results Follow-Up [address] [address] Meron Jones FNP HCG QUANTITATIVE, BLOOD, CBC WITH DIFFERENTIAL 06/09/2025 Lab Requisition [facility] [address] [address] Meron Jones FNP 06/08/2025 External Device Data STL ABSTRACTION Provider, Abstract 06/04/[address] [address] Arnoldo Avery MD Patient Communication 05/19/2025 3:00 PM CDT Office Visit [address] [address] Meron Jones FNP Iron deficiency anemia, unspecified iron deficiency anemia type (Primary Dx); Moderate episode of recurrent major depressive disorder ([facility]/HCC); Anxiety 05/19/2025 11:56 AM CDT - 05/19/2025 11:59 PM CDT Hospital Encounter [address] [address] Meron Jones FNP Discharge Disposition: Home or [...] PERTUSSIS, HEPATITIS B, AND INACTIVATED POLIOVIRUS VACCINE ([id number]), 0.5ML, IM 06/12/2005,04/04/2005,01/12/2005 (PROQUAD)(12 MOS-12 YRS)EDITH LES, [...] History Relation Name Comments Healthy Father [place] Colon Cancer Maternal Grandfather Eduardo Checo Healthy Maternal Grandfather Eduardo Checo High Cholesterol Maternal Grandfather Eduardo Checo Healthy Maternal Grandmother Azalia Nair High Cholesterol Maternal Grandmother Azalia Nair Depression Mother Cristeen [place] Healthy Mother Cristblanca [place] Heart Disease Mother Cristeen [place] Stroke Mother Cristeen [place] Colon Cancer Other ggm Diabetes Paternal Grandfather Jayce [place] Healthy Paternal Grandfather Jayce [place] High Cholesterol Paternal Grandfather Jayce [place] Healthy Paternal Grandmother Lilian [place] High Cholesterol Paternal Grandmother Lilian [place] Anemia Sister Jayna [place] Breast Cancer Neg Hx Relation Name Status Comments Father [place] Alive Maternal Grandfather Eduardo Checo Alive Maternal Grandmother Azalia Nair Alive Mother Cristblanca [place] Alive Other ggm Paternal Grandfather Jayce [place] Alive Paternal Grandmother Lilian [place] Alive Sister Jayna [place] Alive Social History [...] AM CDT Legal Sex Female 12:[address] CHANGE ROOF BOLTER Gender Identity Female 06/04/2025 11:50 AM CDT [...] st Contact Info) Description 11/19/2025 3:[address] CHANGE ROOF BOLTER Office Visit [address] [phone] Meron Jones FNP [address] [address] 05/03/2026 3:00 PM CDT Office Visit [address] [address] Meron Jones FNP [address] [address] Health Maintenance Due Date Last [...] resultswithin the time period is included. Pathologist [facility] HCG QUANT, BLOOD 17800 mIU/mL [facility] Comment: Gestational Age Expected hCG values (mIU/mL) <1 Week: 5-50 1-2 Weeks: 50-500 2-3 Weeks: 100-5000 3-4 Weeks: 500-99123 4-5 Weeks: 1000-[address] 5-6 Weeks: [address] 6-8 Weeks: [address] 2-3 Months: [address] The table above provides only a very [...] or approved by the FDA or the manager life sciences of the assay. FASTING:UNKNOWN FASTING: UNKNOWN Test Performed at: [facility] [address] [place] [address] Janki Sanches MD Blood 06/23/2025 2:11 PM CDT 06/23/2025 2:15 PM CDT Meron Jones [facility] CHEMISTRY ORDERABLES Fin al Result [facility] [phone] [facility] [address] [place] [address] * (ABNORMAL) CBC WITH DIFFERENTIAL (06/09/2025 3:10 PM CDT) WBC 4.1 4.0 - 10.0 K/uL 06/09/2025 3:32 PM CDT [facility] RBC 4.70 3.93 - 5.22 M/uL 06/09/2025 3:32 PM [facility] HEMOGLOBIN 12.3 11.2 - 15.7 g/dL 06/09/2025 3:32 PM [facility] HEMATOCRIT 35.9 34.1 - 44.9 % 06/09/2025 3:32 PM [facility] MCV 76.4(L) 79.4 - 94.8 fL 06/09/2025 3:32 PM [facility] MCH 26.2 25.6 - 32.2 pg 06/09/2025 3:32 PM [facility] MCHC 34.3 32.2 - 35.5 g/dL 06/09/2025 3:32 PM [facility] RDW 13.6 11.0 - 14.5 % 06/09/2025 3:32 PM [facility] RDW-STDEV 37.8 36.9 - 56.9 fL 06/09/2025 3:32 PM [facility] PLATELETS 231 163 - 337 K/uL 06/09/2025 3:32 PM [facility] MPV 10.6 10.0 - 14.8 fL 06/09/2025 3:32 PM [facility] NEUTROPHILS 66 34 - 71 % 06/09/2025 3:32 PM [facility] LYMPHOCYTES 22 19 - 52 % 06/09/2025 3:32 PM [facility] MONOCYTES 10 5 - 13 % 06/09/2025 3:32 PM [facility] EOSINOPHILS 3 1 - 6 % 06/09/2025 3:32 PM [facility] BASOPHILS 0 0 - 1 % 06/09/2025 3:32 PM CDT [facility] IMMATURE GRANULOCYTES 0 % 06/09/2025 3:32 PM CDT [facility] NEUTROPHIL ABSOLUTE 2.67 1.56 - 6.13 K/uL 06/09/2025 3:32 PM CDT [facility] LYMPHOCYTE ABSOLUTE 0.88(L) 1.20 - 3.40 K/uL 06/09/2025 3:32 PM CDT [facility] MONOCYTE ABSOLUTE 0.41(H) 0.24 - 0.36 K/uL 06/09/2025 3:32 PM CDT [facility] EOSINOPHIL ABSOLUTE 0.10 0.04 - 0.36 K/uL 06/09/2025 3:32 PM CDT [facility] BASOPHILS ABSOLUTE 0.01 0.01 - 0.08 K/uL 06/09/2025 3:32 PM CDT [facility] IMMATURE GRANULOCYTES ABSOLUTE 0.01 K/uL 06/09/2025 3:32 PM CDT [facility] Blood 06/09/2025 3:10 PM CDT 06/09/2025 3:13 PM CDT us Meron Jones ENVIRONMENTAL MANAGEMENT SPECIALIST HEMATOLOGY ORDERABLES Fi nal Result [id number] [address] [place] [address] * COMPREHENSIVE METABOLIC PANEL (06/05/2025 2:18 PM [...] possibility of polycystic ovarian syndrome. Meron Jones [facility] US ORDERABLES Final Re sult * HELICOBACTER PYLORI ANTIGEN, STOOL (05/11/2025 4:04 PM CDT) H. PYLORI AG, STOOL SEE NOTE [facility] Comment: HELICOBACTER PYLORI AG, EIA, STOOL Micro Number: [id number] Test Status: Final Specimen Source: Stool Specimen [...] Detected FASTING:UNKNOWN FASTING: UNKNOWN Test Performed at: [facility] [place] [address] [place] [address] Janki Sanches Stool STOOL SPECIMEN / Unknown 05/11/2025 4:04 PM CDT 05/12/2025 3:10 AM CDT Meron Jones ENVIRONMENTAL MANAGEMENT SPECIALIST BODY FLUIDS AND STOOLS F inal Result [facility] [phone] [facility] [address] [place] [address] * VAGINOSIS/VAGINITIS PANEL PLUS (05/03/2025 3:25 PM CDT) BACTERIAL VAGINOSIS NEGATIVE NEGATIVE [facility] [place] LAURA SPECIES NOT DETECTED NOT DETECTED [facility] [place] LAURA GLABRATA NOT DETECTED NOT DETECTED [facility] [place] Comment: Laura species C. albicans, C. tropicalis, C. parapsilosis, and/or C. dubliniensis can be detected, but not differentiated, in the Laura spp. result. TRICHOMONAS VAGINALIS (TV), TMA NOT DETECTED NOT DETECTED [facility] [place] CHLAMYDIA TRACHOMATIS RNA, TMA, UROGENITAL NOT DETECTED NOT DETECTED [facility] [place] NEISSERIA GONORRHOEAE RNA, TMA, UROGENITAL NOT DETECTED NOT DETECTED [facility] [place] Comment: For additional information, please refer to https://education.The 517 travel/faq/ZZH909 (This link is being provided for information/ educational purposes only.) Test Performed at: [facility] [address] [place] [address] Janki Sanches MD Genital SPECIMEN FROM VAGINA / Unknown 05/03/2025 3:25 PM CDT 05/04/2025 3:55 AM CDT Meron ELP MICROBIOLOGY - GENERAL O RDERABLES Final Result Performing Organization Address City/State/[facility] Co de Phone Number [facility] [phone] [facility] [address] [facility] [place] [address] from Last 3 Months or Most Recently Relevant to Health Maintenance Insurance [facility] [employer] MEDICAID [facility] [id number] [facility] [place] [address] Care Teams Neurology Tech Relationship Specialty Start Date End Date Arnoldo Avery MD [address] [phone] PCP - General Family Practice 04/05/23
--- OUTSIDE RECORDS SUMMARY | 2025-08-09 00:36 | XMS_ITS | Encounter Summary ---
Author Organization [facility] Address [address] [place] [address] Care Team Providers Care Cyber Crime Investigator Name Role Phone Arnoldo Avery MD Primary Care Provider [phone] Encounter Details Date Type Department Care Team ([facility] Contact Info) Description 06/09/2025 Lab Requisition [facility] Laboratory Services [place] [address] [address] Meron Jones, [facility] [address] [address] Social History Tobacco Use Types [...] AM CDT Legal Sex Female 12:05 PM OTOLARYNGOLOGY TEACHER Gender Identity Female 06/04/2025 11:50 AM CDT Sexual Orientation Not on file documented as of this encounter Plan of Treatment Upcoming Encounters Date Type Department Care Team (Late Contact Info) Description 11/19/2025 3:40 PM OTOLARYNGOLOGY TEACHER [facility] [place] [address] [address] Meron Jones, [facility] [address] [place] [address] 05/03/2026 3:00 PM CDT Office Visit [facility] [address] [place] [address] Meron Jones, [facility] [address] [place] [address] documented as of this encounter Procedures Procedure Name Priority Date/Time Associated Diagnosis Comments CBC WITH DIFFERENTIAL Stat 06/09/2025 3:10 PM CDT HCG QUANTITATIVE, BLOOD Stat 06/09/2025 3:10 PM CDT documented in this encounter Results * (ABNORMAL) CBC WITH DIFFERENTIAL (06/09/2025 3:10 PM CDT) WBC 4.1 4.0 - 10.0 K/uL 06/09/2025 3:32 PM CDT [facility] RBC 4.70 3.93 - 5.22 M/uL 06/09/2025 3:32 PM CDT [facility] HEMOGLOBIN 12.3 11.2 - 15.7 g/dL 06/09/2025 3:32 PM CDT [facility] HEMATOCRIT 35.9 34.1 - 44.9 % 06/09/2025 3:32 PM CDT [facility] MCV 76.4(L) 79.4 - 94.8 fL 06/09/2025 3:32 PM CDT [facility] MCH 26.2 25.6 - 32.2 pg 06/09/2025 3:32 PM CDT [facility] MCHC 34.3 32.2 - 35.5 g/dL 06/09/2025 3:32 PM CDT [facility] RDW 13.6 11.0 - 14.5 % 06/09/2025 3:32 PM CDT [facility] RDW-STDEV 37.8 36.9 - 56.9 fL 06/09/2025 3:32 [facility]ATE[facility] 231 163 - 337 K/uL 06/09/2025 3:[address] [facility] MPV 10.6 10.0 - 14.8 fL 06/09/2025 3:[address] [facility] NEUTROPHILS 66 34 - 71 % 06/09/2025 3:[address] [facility] LYMPHOCYTES 22 19 - 52 % 06/09/2025 3:[address] [facility] MONOCYTES 10 5 - 13 % 06/09/2025 3:[address] [facility] EOSINOPHILS 3 1 - 6 % 06/09/2025 3:[address] [facility] BASOPHILS 0 0 - 1 % 06/09/2025 3:[address] [facility] IMMATURE GRANULOCYTES 0 % 06/09/2025 3:[address] [facility] NEUTROPHIL ABSOLUTE 2.67 1.56 - 6.13 K/uL 06/09/2025 3:[address] [facility] LYMPHOCYTE ABSOLUTE 0.88(L) 1.20 - 3.40 K/uL 06/09/2025 3:[address] [facility] MONOCYTE ABSOLUTE 0.41(H) 0.24 - 0.36 K/uL 06/09/2025 3:[address] [facility] EOSINOPHIL ABSOLUTE 0.10 0.04 - 0.36 K/uL 06/09/2025 3:[address] [facility] BASOPHILS ABSOLUTE 0.01 0.01 - 0.08 K/uL 06/09/2025 3:[address] [facility] IMMATURE GRANULOCYTES ABSOLUTE 0.01 K/uL 06/09/2025 3:[address] [facility] Blood 06/09/2025 3:10 PM CDT 06/09/2025 3:13 PM CDT us Meron Jones SAT INSTRUCTOR HEMATOLOGY ORDERABLES Fi nal Result [facility] CLIA # [id number] [address] [place] [address] * (ABNORMAL) HCG QUANTITATIVE, BLOOD (06/09/2025 3:10 PM CDT) HCG QUANT, BLOOD 3,286.0(H ) <=1.0 mIU/mL 06/09/2025 3:41 PM CDT [facility] Comment: Male <= 2 mIU/mL [...] CDT 06/09/2025 3:13 PM CDT Meron Jones SAT INSTRUCTOR CHEMISTRY ORDERABLES Fin al Result [facility] CLIA # [id number] [address] [place] [address] documented in this encounter Visit Diagnoses Not on filedocumented in this encounter Additional Health Concerns Assessment Noted Time PHQ-9 Depression Total Score: 1 10/13/19 25 1:49 PM OTOLARYNGOLOGY TEACHER documented as of this encounter Care Teams Cyber Crime Investigator Relationship Specialty Start Date End Date Arnoldo Avery MD [address] [address] PCP - General Family Practice 04/05/23 documented as of this encounter
--- OUTSIDE RECORDS SUMMARY | 2025-08-09 00:36 | XMS_ITS | Encounter Summary ---
Author Organization [facility] Address [address] [place] [address] Care Team Providers Care Gas Scrubber Operator Name Role Phone Geraldine Linares MD Primary Care Provider Encounter Details Date Type Department Care Team (Latest Contact Info) Description 09/18/2005 Outpatient Historical [facility]- [place] [address] [place] [phone] Sierra Baxter NP NO ADDRESS ON FILE ACUTE SINUSITIS NOS (Primary Dx); ACUTE PHARYNGITIS; OTITIS MEDIA NOS Social History Tobacco Use Types Packs/Day Years Used Date Smoking Tobacco: Never Assessed Comments Unknown Sex and Gender Information Value Date Recorded Sex Assigned at Not on file Legal Sex Female 3:17 AM OFFICE CLERK ROUTINE Gender Identity Not on file Sexual Orientation Not on file documented as of this encounter Plan of Treatment Not on file documented as of this encounter Visit Diagnoses Diagnosis Acute sinusitis, unspecified- Primary Acute pharyngitis Unspecified otitis media documented in this encounter Care Teams Gas Scrubber Operator Relationship Specialty Start Date End Date Geraldine Linares MD [address] [facility] [address] [place] [address] PCP - General Family Practice 01/20/14 documented as of this encounter
--- OUTSIDE RECORDS SUMMARY | 2025-08-09 00:36 | XMS_ITS | Encounter Summary ---
Author Organization [facility] Address [address] [place] [address] Care Team Providers Care Air Tank Assembler Name Role Phone Geraldine Linares MD Primary Care Provider Encounter Details Date Type Department Care Team (Latest Contact Info) Description 2004 Outpatient Historical [facility] [place] [address] [phone] Arlette Bourne MD [address] [place] [address] Routine child health exam (Primary Dx); TONGUE TIE Social History Tobacco Use Types Packs/Day Years Used Date Smoking Tobacco: Never Assessed Comments Unknown Sex and Gender Information Value Date Recorded Sex Assigned at Not on file Legal Sex Female 3:17 AM DIRECTOR TARGETED MARKETING Gender Identity Not on file Sexual Orientation Not on file documented as of this encounter Plan of Treatment Not on file documented as of this encounter Visit Diagnoses Diagnosis Routine child health exam- Primary Routine infant or child health check Tongue tie documented in this encounter Care Teams Air Tank Assembler Relationship Specialty Start Date End Date Geraldine Linares MD [address] [facility] 60 [place] [phone] PCP - General Family Practice 01/20/14 documented as of this encounter
--- OUTSIDE RECORDS SUMMARY | 2025-08-09 00:36 | XMS_ITS | Encounter Summary ---
Author Organization [facility] Address [address] [place] [address] Care Team Providers Care Claims Adjuster Name Role Phone Geraldine Linares MD Primary Care Provider Encounter Details Date Type Department Care Team (Latest Contact Info) Description 11/07/2006 Outpatient [address] [facility] [place] [address] [phone] Shanthi Hi, BENCH PRECISION ASSEMBLER [address] [place] [phone] Other Conjunctivitis (Primary Dx) Social History Tobacco Use Types Packs/Day Years Used Date Smoking Tobacco: Never Assessed Comments Unknown Sex and Gender Information Value Date Recorded Sex Assigned at Not on file Legal Sex Female 3:17 AM RN PHYSICIAN OFFICE Gender Identity Not on file Sexual Orientation Not on file documented as of this encounter Plan of Treatment Not on file documented as of this encounter Visit Diagnoses Diagnosis Other conjunctivitis- Primary documented in this encounter Care Teams Claims Adjuster Relationship Specialty Start Date End Date Geraldine Linares MD [address] [phone] PCP - General Family Practice 01/20/14 documented as of this encounter
--- OUTSIDE RECORDS SUMMARY | 2025-08-09 00:36 | XMS_ITS | Encounter Summary ---
Author Organization [facility] Address [address] [place] [address] Care Team Providers Care Criminal Justice Social Worker Name Role Phone Geraldine Linares MD Primary Care Provider [phone] Encounter Details Date Type Department Care Team (Latest Contact Info) Description 2004 Outpatient Historical [facility] [place] [address] [phone] Arlette Bourne MD [address] [place] [address] ACUTE URI NOS (Primary Dx); TONGUE TIE Social History Tobacco Use Types Packs/Day Years Used Date Smoking Tobacco: Never Assessed Comments Unknown Sex and Gender Information Value Date Recorded Sex Assigned at Not on file Legal Sex Female 3:17 AM PHP SOFTWARE ENGINEER Gender Identity Not on file Sexual Orientation Not on file documented as of this encounter Plan of Treatment Not on file documented as of this encounter Visit Diagnoses Diagnosis Acute upper respiratory infections of unspecified site- Primary Tongue tie documented in this encounter Care Teams Criminal Justice Social Worker Relationship Specialty Start Date End Date Geraldine Linares MD [address] [facility] [place] [address] PCP - General Family Practice 01/20/14 documented as of this encounter
--- OUTSIDE RECORDS SUMMARY | 2025-08-09 00:36 | XMS_ITS | Encounter Summary ---
Author Organization [facility] Address [address] [place] [address] Care Team Providers Care Bead Forming Machine Operator Name Role Phone Geraldine Linares MD Primary Care Provider Encounter Details Date Type Department Care Team (Latest Contact Info) Description 02/06/2006 [facility]patient [facility] [address] [place] [address] Shanthi Hi, SPRAY UNIT FEEDER [address] [place] [phone] Superficial Injury NEC (Primary Dx) Social History Tobacco Use Types Packs/Day Years Used Date Smoking Tobacco: Never Assessed Comments Unknown Sex and Gender Information Value Date Recorded Sex Assigned at Not on file Legal Sex Female 3:17 AM 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
--- OUTSIDE RECORDS SUMMARY | 2025-08-09 00:36 | XMS_ITS | Encounter Summary ---
Author Organization [facility] Address [address] [place] [address] Care Team Providers Care Waterworks Pump Station Operator Name Role Phone Arnoldo Avery MD Primary Care Provider [phone] Encounter Details Date Type Department Care Team (Late Contact Info) Description 06/18/2025 Results Follow-Up [address] [address] Meron Jones, [facility] [address] [address] HCG QUANTITATIVE, BLOOD Social History [...] AM CDT Legal Sex Female 12:05 PM PERFORMANCE ANALYST Gender Identity Female 06/04/2025 11:50 AM CDT Sexual Orientation Not on file documented as of this encounter Plan of Treatment Upcoming Encounters Date Type Department Care Team (Late Contact Info) Description 11/19/2025 3:40 PM PERFORMANCE ANALYST Office Visit [address] [address] Meron Jones [facility] [address] [place] [address] 05/03/2026 3:00 PM CDT Office Visit [facility] [address] [place] [address] Meron Jones [facility] [address] [place] [address] documented as of this encounter Visit Diagnoses Not on filedocumented in this encounter Additional Health Concerns Assessment Noted Time PHQ-9 Depression Total Score: 1 10/13/19 25 1:49 PM PERFORMANCE ANALYST documented as of this encounter Care Teams Waterworks Pump Station Operator Relationship Specialty Start Date End Date Arnoldo Avery MD [address] [place] [address] PCP - General Family Practice 04/05/23 documented as of this encounter
--- OUTSIDE RECORDS SUMMARY | 2025-08-09 00:36 | XMS_ITS | Encounter Summary ---
Author Organization [facility] Address [address] [place] [address] Care Team Providers Care Hospital Internship Name Role Phone Geraldine Linares MD Primary Care Provider Encounter Details Date Type Department Care Team (Latest Contact Info) Description [address] 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
--- OUTSIDE RECORDS SUMMARY | 2025-08-09 00:36 | XMS_ITS | Encounter Summary ---
Author Organization [facility] Address [address] [place] [address] Care Team Providers Care Bale Piler Name Role Phone Arnoldo Avery MD Primary Care Provider [phone] Encounter Details Date Type Department Care Team (Late Contact Info) Description 10/14/2024 Results Follow-Up [facility] Emergency Medicine [address] [address] Miesha Wilkins RN GC/CHLAMYDIA, UROGENITAL [...] AM CDT Legal Sex Female 12:05 PM COMMODITY LOAN CLERK Gender Identity Female 06/04/2025 11:50 AM CDT Sexual Orientation Not on file documented as of this encounter Plan of Treatment Upcoming Encounters Date Type Department Care Team (Late Contact Info) Description 11/19/2025 3:40 PM COMMODITY LOAN CLERK Office Visit [facility] [address] [address] Meron Jones, [facility] [address] [address] 05/03/2026 3:00 PM CDT Office Visit [facility] [address] [address] Meron Jones FNP [address] [address] documented as of this encounter Visit Diagnoses Not on filedocumented in this encounter Additional Health Concerns Assessment Noted Time PHQ-9 Depression Total Score: 1 10/13/19 25 1:49 PM COMMODITY LOAN CLERK documented as of this encounter Care Teams Bale Piler Relationship Specialty Start Date End Date Arnoldo Avery MD [address] [address] PCP - General Family Practice 04/05/23 documented as of this encounter
--- OUTSIDE RECORDS SUMMARY | 2025-08-09 00:36 | XMS_ITS | Encounter Summary ---
Author Organization [facility] Address [address] [place] [address] Care Team Providers Care Lap Cutter Name Role Phone Geraldine Linares MD Primary Care Provider Encounter Details Date Type Department Care Team (Latest Contact Info) Description 04/10/2006 Outpatient Historical [facility] 149 [place] [address] Shanthi Hi, STAPLE SIDE LASTER [address] [place] [phone] Acute Upper Respiratory Infections of Unspecified Site (Primary Dx) Social History Tobacco Use Types Packs/Day Years Used Date Smoking Tobacco: Never Assessed Comments Unknown Sex and Gender Information Value Date Recorded Sex Assigned at Not on file Legal Sex Female 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
--- OUTSIDE RECORDS SUMMARY | 2025-08-09 00:36 | XMS_ITS | Encounter Summary ---
Author Organization [facility] Address [address] [place] [address] Care Team Providers Care Human Intelligence Name Role Phone Geraldine Linares MD Primary Care Provider [phone] Encounter Details Date Type Department Care Team (Latest Contact Info) Description 06/12/2006 Outpatient Historical [facility] 149 [place] [address] Shanthi Hi, LEAK OPERATOR PARAFFIN PLANT [address] [place] [phone] Acute Pharyngitis (Primary Dx) Social History Tobacco Use Types Packs/Day Years Used Date Smoking Tobacco: Never Assessed Comments Unknown Sex and Gender Information Value Date Recorded Sex Assigned at Not on file Legal Sex Female 3:17 AM 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
--- OUTSIDE RECORDS SUMMARY | 2025-08-09 00:36 | XMS_ITS | Encounter Summary ---
Author Organization [facility] Address [address] [place] [address] Care Team Providers Care Returned Case Inspector Name Role Phone Arnoldo Avery MD Primary Care Provider [phone] Encounter Details Date Type Department Care Team (Late Contact Info) Description 06/10/2025 Lab Requisition [facility] [place] [address] [address] Meron Jones, [facility] [address] [address] related conditions, unspecified, first trimester [...] AM CDT Legal Sex Female 12:05 PM BUILDING REPAIR MAINTENANCE SUPERVISOR Gender Identity Female 06/04/2025 11:50 AM CDT Sexual Orientation Not on file documented as of this encounter Plan of Treatment Upcoming Encounters Date Type Department Care Team (Late Contact Info) Description 11/19/2025 3:40 PM BUILDING REPAIR MAINTENANCE SUPERVISOR Office Visit [facility] [place] [address] [address] Meron Jones Yesi, [facility] [address] [place] [address] 05/03/2026 3:00 PM CDT Office Visit [facility] [address] [place] [address] Karen Meron Yesi, [facility] [address] [place] [address] documented as of this encounter Procedures Procedure Name Priority Date/Time Associated Diagnosis Comments HCG QUANTITATIVE, BLOOD Stat 06/10/2025 1:33 PM CDT related conditions, unspecified, first trimester documented in this encounter Results * (ABNORMAL) HCG QUANTITATIVE, BLOOD (06/10/2025 1:33 PM CDT) HCG QUANT, BLOOD 4,887.0(H ) <=1.0 mIU/mL 06/10/2025 1:57 PM CDT [facility] Comment: Male <= 2 mIU/mL Female [...] 06/10/2025 1:33 PM CDT us Meron Jones HUMAN RESOURCE ADVISER CHEMISTRY ORDERABLES Fin al Result [id number] [address] [phone] documented in this encounter Visit Diagnoses Diagnosis related conditions, unspecified, first trimester documented in this encounter Additional Health Concerns Assessment Noted Time PHQ-9 Depression Total Score: 1 10/13/19 25 1:49 PM BUILDING REPAIR MAINTENANCE SUPERVISOR documented as of this encounter Care Teams Returned Case Inspector Relationship Specialty Start Date End Date Arnoldo Avery MD [address] [phone] PCP - General Family Practice 04/05/23 documented as of this encounter
--- OUTSIDE RECORDS SUMMARY | 2025-08-09 00:36 | XMS_ITS | Encounter Summary ---
Author Organization [facility] Address [address] [place] [address] Care Team Providers Care Bareback Rider Name Role Phone Geraldine Linares MD Primary Care Provider Encounter Details Date Type Department Care Team (Latest Contact Info) Description [address] 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
--- OUTSIDE RECORDS SUMMARY | 2025-08-09 00:36 | XMS_ITS | Encounter Summary ---
Author Organization [facility] Address [address] [place] [address] Care Team Providers Care Polish Compounder Name Role Phone Geraldine Linares MD Primary Care Provider Encounter Details Date Type Department Care Team (Latest Contact Info) Description 05/29/2005 Outpatient Historical [facility] [place] [address] [phone] Shanthi Hi, OFFICE HELPER CLERICAL [address] [place] [address] OTITIS MEDIA NOS (Primary Dx) Social History Tobacco Use Types Packs/Day Years Used Date Smoking Tobacco: Never Assessed Comments Unknown Sex and Gender Information Value Date Recorded Sex Assigned at Not on file Legal Sex Female 3:17 AM ASSOCIATE SPA DIRECTOR Gender Identity Not on file Sexual Orientation Not on file documented as of this encounter Plan of Treatment Not on file documented as of this encounter Visit Diagnoses Diagnosis Unspecified otitis media- Primary documented in this encounter Care Teams Polish Compounder Relationship Specialty Start Date End Date Geraldine Linares MD [address] [phone] PCP - General Family Practice 01/20/14 documented as of this encounter
--- OUTSIDE RECORDS SUMMARY | 2025-08-09 00:36 | XMS_ITS | Encounter Summary ---
Author Organization [facility] Address [address] [place] [address] Care Team Providers Care Powder Compounder Name Role Phone Arnoldo Avery MD Primary Care Provider [phone] Encounter Details Date Type Department Care Team (Late Contact Info) Description 06/24/2025 Results Follow-Up [address] [address] Meron Jones, [facility] [address] [address] HCG QUANTITATIVE, BLOOD Social History [...] AM CDT Legal Sex Female 12:05 PM ACQUISITIONS LIBRARIAN Gender Identity Female 06/04/2025 11:50 AM CDT Sexual Orientation Not on file documented as of this encounter Plan of Treatment Upcoming Encounters Date Type Department Care Team (Late Contact Info) Description 11/19/2025 3:40 PM ACQUISITIONS LIBRARIAN Office Visit [address] [address] Meron Jones [facility] [address] [place] [address] 05/03/2026 3:00 PM CDT Office Visit [facility] [address] [place] [address] Meron Jones [facility] [address] [place] [address] documented as of this encounter Visit Diagnoses Not on filedocumented in this encounter Additional Health Concerns Assessment Noted Time PHQ-9 Depression Total Score: 1 10/13/19 25 1:49 PM ACQUISITIONS LIBRARIAN documented as of this encounter Care Teams Powder Compounder Relationship Specialty Start Date End Date Arnoldo Avery MD [address] [place] [address] PCP - General Family Practice 04/05/23 documented as of this encounter
--- OUTSIDE RECORDS SUMMARY | 2025-08-09 00:36 | XMS_ITS | Clinical Summary ---
Author Organization [facility] Address [address] [place] [address] Care Team Providers Care Slot Supervisor Name Role Phone Geraldine Linares MD Primary Care Provider [phone] Allergies No known active allergies Medications Polycarbophil [...] on file Legal Sex Female 3:17 AM CROCODILE FARMER Gender Identity Not on file Sexual Orientation Not on file Occupation Industry Job Start Date Job End Date Not on file Not on file Not on file Not on file Last Filed Vital Signs Vital Sign Reading Time Taken Comments Blood Pressure 98/54 08/09/2015 3:15 PM CROCODILE FARMER Pulse 84 08/09/2015 3:15 PM CROCODILE FARMER Temperature 37.1 C (98.7 F) 08/09/2015 3:15 PM CROCODILE FARMER Respiratory Rate 16 08/09/2015 3:15 PM CROCODILE FARMER Oxygen Saturation 99% 08/09/2015 3:15 PM CROCODILE FARMER Inhaled Oxygen Concentration - - Weight 44.5 kg (98 lb) 08/09/2015 3:15 PM CROCODILE FARMER Height 147.3 cm (4' 10 ) 08/09/2015 3:15 PM CROCODILE FARMER Body Mass Index 20.48 08/09/2015 3:15 PM CROCODILE FARMER Plan of Treatment Health Maintenance Due Date Last Done Comments HEPATITIS B VACCINES (3 of 3 - 3-dose series) 05/30/2005 04/04/2005, 01/12/2005 CHLAMYDIA SCREENING (ANNUAL) 11-24 YEARS 2015 DTAP/TDAP/TD VACCINES (5 - Tdap) 2015 11/22/2009, 05/12/2009, 04/04/2005, Additional history exists HPV VACCINES (1 - 3-dose series) 2019 Preventative Visit-Managed Medicaid 2023 11/22/2009, 2004 INFLUENZA VACCINE (#1) 2025 Insurance MEDICAID [place] Care Teams Slot Supervisor Relationship Specialty Start Date End Date Geraldine Linares MD [facility] [address] [phone] PCP - General Family Practice 01/20/14
--- OUTSIDE RECORDS SUMMARY | 2025-08-09 00:36 | XMS_ITS | Encounter Summary ---
Author Organization [facility] Address 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 Gender Identity Female 06/04/2025 11:50 AM CDT [...] st Contact Info) Description 11/19/2025 3:40 PM HIGH SCHOOL MUSIC INSTRUCTOR Office Visit [facility] [address] [place] [address] Meron Jones FNP [address] [place] [address] 05/03/2026 3:00 PM CDT Office Visit [facility] [address] [place] [address] Meron Jones FNP [address] [place] [address] documented as of this encounter Visit Diagnoses Not on filedocumented in this encounter Additional Health Concerns Assessment Noted Time PHQ-9 Depression Total Score: 1 10/13/19 25 1:49 PM HIGH SCHOOL MUSIC INSTRUCTOR documented as of this encounter Care Teams Career Services Manager Relationship Specialty Start Date End Date Arnoldo Avery MD [address] [place] [address] PCP - General Family Practice 04/05/23 documented as of this encounter
--- OUTSIDE RECORDS SUMMARY | 2025-08-09 00:36 | XMS_ITS | Encounter Summary ---
Author Organization [facility] Address [address] [place] [address] Care Team Providers Care Canvas Repairer Name Role Phone Arnoldo Avery MD Primary Care Provider [phone] Encounter Details Date Type Department Care Team (Late Contact Info) Description 07/02/2025 Results Follow-Up [address] [address] Meron Jones, [facility] [address] [address] [place] OB LESS THAN 14 [...] AM CDT Legal Sex Female 12:05 PM CARBIDE TOOL MAKER Gender Identity Female 06/04/2025 11:50 AM CDT Sexual Orientation Not on file documented as of this encounter Plan of Treatment Upcoming Encounters Date Type Department Care Team (Late Contact Info) Description 11/19/2025 3:40 PM CARBIDE TOOL MAKER Office Visit [address] [address] Meron Jones, [facility] [address] [place] [address] 05/03/2026 3:00 PM CDT Office Visit [facility] [address] [place] [address] Meron Jones [facility] [address] [place] [address] documented as of this encounter Visit Diagnoses Not on filedocumented in this encounter Additional Health Concerns Assessment Noted Time PHQ-9 Depression Total Score: 1 10/13/19 25 1:49 PM CARBIDE TOOL MAKER documented as of this encounter Care Teams Canvas Repairer Relationship Specialty Start Date End Date Arnoldo Avery MD [address] [place] [address] PCP - General Family Practice 04/05/23 documented as of this encounter
--- OUTSIDE RECORDS SUMMARY | 2025-08-09 00:36 | XMS_ITS | Encounter Summary ---
Author Organization [facility] Address [address] [place] [address] Care Team Providers Care Chief School Finance Officer Name Role Phone Geraldine Linares MD Primary Care Provider Encounter Details Date Type Department Care Team (Latest Contact Info) Description 10/23/2005 Outpatient Historical [facility] Medicine [place] [address] [phone] Shanthi Hi, BAGGAGE CLERK [address] [place] [phone] ACUTE PHARYNGITIS (Primary Dx) Social History Tobacco Use Types Packs/Day Years Used Date Smoking Tobacco: Never Assessed Comments Unknown Sex and Gender Information Value Date Recorded Sex Assigned at Not on file Legal Sex Female 3:17 AM DRAPERY WORKER Gender Identity Not on file Sexual Orientation Not on file documented as of this encounter Plan of Treatment Not on file documented as of this encounter Visit Diagnoses Diagnosis Acute pharyngitis- Primary documented in this encounter Care Teams Chief School Finance Officer Relationship Specialty Start Date End Date Geraldine Linares MD [address] [phone] PCP - General Family Practice 01/20/14 documented as of this encounter
--- OUTSIDE RECORDS SUMMARY | 2025-08-09 00:36 | XMS_ITS | Encounter Summary ---
Author Organization [facility] Address [address] [place] [address] Care Team Providers Care Associate Data Scientist Name Role Phone Geraldine Linares MD Primary Care Provider Encounter Details Date Type Department Care Team (Latest Contact Info) Description 08/12/2006 [facility] [address] [place] [phone] Shanthi Hi, AUTOMOTIVE COLLISION ESTIMATOR [address] [place] [phone] Acute Pharyngitis (Primary Dx); Unspecified Otitis Media Social History Tobacco Use Types Packs/Day Years Used Date Smoking Tobacco: Never Assessed Comments Unknown Sex and Gender Information Value Date Recorded Sex Assigned at Not on file Legal Sex Female 3:17 AM ROVING TECHNICIAN Gender Identity Not on file Sexual Orientation Not on file documented as of this encounter Plan of Treatment Not on file documented as of this encounter Visit Diagnoses Diagnosis Acute pharyngitis- Primary Unspecified otitis media documented in this encounter Care Teams Associate Data Scientist Relationship Specialty Start Date End Date Geraldine Linares MD [address] [facility] [address] [place] [phone] PCP - General Family Practice 01/20/14 documented as of this encounter
--- NOTE | 2025-08-09 00:40 | USR_ITS ---
PROCEDURE INFORMATION: Exam: US Pelvis, Complete, Non-Obstetric Exam date and time: 08/09/2025 1:44 AM Age: 19 years old Clinical indication: Other: Threatened , rom TECHNIQUE: Imaging protocol: Transabdominal pelvic nonobstetric ultrasound. Complete exam. Real time ultrasound with image documentation. COMPARISON: US OB <= 14 weeks fetus [facility] 07/20/2025 1:53 PM FINDINGS: GESTATION: Gestation: Fetus is present within the cervix. Uterus: Thickened endometrial stripe. Right ovary/adnexa: Right ovary nonvisualized. Left ovary/adnexa: Left ovary nonvisualized. Intraperitoneal space: No intraperitoneal fluid. Urinary bladder: Normal. Other findings: No visualized pathologic fluid. US/US pelvic limited [id number] IMPRESSION: Findings represent ongoing .
--- NOTE | 2025-08-09 00:42 | W.ED.PREGNAN ---
Documented by User: SHER Wallis 08/09/25 18:09 HPI - General: Chief complaint: OB/Uterine Contractions Stated complaint: 13WKS BLEEDING IN PAIN Time Seen by Provider: 08/09/25 00:31 History of Present Illness: Patient is a 19-year-old female that initially presented here 08/06 with abdominal pain. She returned on 08/06 with rupture of membranes. Cardiac activity was intact at that time. On 1114, she presented with cramping, and cardiac activity was 105. I discussed the case with Dr. Barrera on-call for OB, that recommended repeating ultrasound on Saturday. She has had increased bleeding, 6 pads today, and cramping. She is screaming cramping. On 08/07, she reported 101 degrees fever. She was sent home with Augmentin after given Zosyn here. Today, she denies any fever. Associated symptoms: Reports vaginal bleeding and vaginal discharge; Deny abdominal pain, headache(s), nausea or vomiting Related Data Home Medications ?Medication ?Instructions ?Recorded ?Confirmed fluoxetine 20 mg capsule 20 mg PO DAILY 06/05/25 08/09/25 vitamins no.167-folic 1 tab PO DAILY 06/20/25 08/09/25 acid 400 mcg-dha 25 mg chewable tablet (One-A-Day ) acetaminophen 325 mg tablet 325 mg PO QID PRN Fever Or Pain 07/28/25 08/09/25 (Tylenol) Previous Rx's ?Medication ?Instructions ?Recorded hydrocodone 5 mg-acetaminophen 325 1 tab PO Q6H PRN pain #7 tabs 08/06/25 mg tablet amoxicillin 875 mg-potassium 1 tab PO Q12H #20 tabs 08/07/25 clavulanate 125 mg tablet Allergies Allergy/AdvReac Type Severity Reaction Status Date / Time No Known Allergies Allergy Verified 08/09/25 15:55 Review of Systems General: Reports: 10 or more systems reviewed and unremarkable except in HPI and below Const: Denies: fever(s) or chills Eyes: Denies: change in vision or blurry vision ENMT: Denies: throat pain or nasal discharge Card: Denies: chest pain or palpitations Resp: Denies: dyspnea or non-productive cough GI: Denies: abdominal pain, nausea or vomiting : Reports: vaginal bleeding, vaginal discharge and pelvic pain; Denies: flank pain or difficulty voiding Musc: Denies: neck pain or back pain Skin/Breast: Denies: rash, pruritus or erythema Neuro: Denies: headache(s) or numbness in extremities Psych: Reports: anxiety; Denies: depression PFSH ED PFSH: Medical History No pertinent past medical history neghx: dvt/pe, thyroid, dm, htn PCP: [facility] Surgical History No pertinent past surgical history Family History Grandmother Colon cancer Social History Smoking and tobacco/nicotine status: never used tobacco/nicotine Physical Exam Const: COMMON NORMALS: no acute distress, average body habitus, patient oriented x3, no limitations, healthy appearing, alert and well nourished GENERAL APPEARANCE: cooperative, comfortable and well kempt HENMT: COMMON NORMALS: normocephalic and atraumatic HEAD & SCALP: normocephalic and atraumatic MOUTH: Normal oral and palatal mucosa present, lip normal and tongue normal Chest: COMMONS NORMALS: normal inspection of the chest and normal palpation of entire chest wall Resp: COMMON NORMALS: normal respiratory effort, No retractions and No use of accessory muscles GI: COMMON NORMALS: Normal to inspection, nondistended, normoactive bowel sounds present, Soft to palpation and non-tender PALPATION: Yes Soft to palpation : COMMON NORMALS: Yes no CVA tenderness BLADDER/KIDNEY EXAM: Yes no CVA tenderness SPECULUM EXAM - VAGINA: Yes foreign body, Yes vaginal bleeding and Yes tissue present in vagina OB/EXTERNAL & SPECULUM: foreign body, tissue present in vagina and vaginal bleeding Back/Pelvis: COMMON NORMALS: no CVA tenderness and thoracic and lumbar spine normal to inspection Extremity: COMMON NORMALS: normal to inspection, full ROM and capillary refill normal Neuro: COMMON NORMALS: patient oriented x3 SENSORIUM/ORIENTATION: Yes alert Psych: COMMON NORMALS: cooperative APPEARANCE: Yes well kempt ATTITUDE: Yes bizarre and Yes agitated ACTIVITY/MOTOR BEHAVIOR: Yes fidgeting and Yes Avoids eye contact (attititude/behavior) MOOD & AFFECT: Yes sad, Yes tearful and Yes fearful INSIGHT: Limited insight present (Psych) Course Vital Signs: Vital signs: Vital Signs Temperature 97.5 F L 08/09/25 00:31 Pulse Rate 84 08/09/25 03:39 Respiratory Rate 18 08/09/25 01:31 Blood Pressure 105/63 08/09/25 03:39 Pulse Oximetry 99 08/09/25 03:39 Oxygen Delivery Me thod Room Air 08/09/25 00:31 MDM - OB/Uterine Contractions Medical Decision Making Patient is a 19-year-old female with 13-week and spontaneous rupture of membranes. She has severe cramping, discharge from her vagina. Repeat ultrasound has been ordered. Medical Records I reviewed the patient's medical records. Lab Data I reviewed the patient's lab results. 08/09/25 00:39 08/09/25 00:39 Radiology Impressions Pelvis Ultrasound 08/09/25 00:40 IMPRESSION: Findings represent ongoing . Laboratory Results WBC 7.24 10^3/uL (4.5-13.0) 08/09/25 00:39 RBC 4.36 10^6/uL (3.85-5.65) 08/09/25 00:39 Hgb 11.80 g/dL (12.4-14.8) L 08/09/25 00:39 Hct 34.0 % (36-47) L 08/09/25 00:39 MCV 78.0 fl (85-98) L 08/09/25 00:39 MCH 27.1 pg (27-33) 08/09/25 00:39 MCHC 34.7 g/dL (30-55) 08/09/25 00:39 RDW 13.8 % (12.1-15.1) 08/09/25 00:39 Plt Count 248 10^3/cmm (157-399) 08/09/25 00:39 MPV 10.3 fL (7.4-10.4) 08/09/25 00:39 Neut % (Auto) 79.4 % 08/09/25 00:39 Lymph % (Auto) 7.6 % 08/09/25 00:39 [place] % (Auto) 11.3 % 08/09/25 00:39 Eos % (Auto) 1.0 % 08/09/25 00:39 Baso % (Auto) 0.1 % 08/09/25 00:39 Neut # (Auto) 5.75 10^3/uL (1.8-8.0) 08/09/25 00:39 Lymph # (Auto) 0.6 10^3/uL (1.5-6.5) L 08/09/25 00:39 [place] # (Auto) 0.8 10^3/uL (0.2-0.9) 08/09/25 00:39 Eos # (Auto) 0.1 10^3/uL (0.0-0.8) 08/09/25 00:39 Baso # (Auto) 0.0 10^3/uL (0.0-0.1) 08/09/25 00:39 Nucleated RBC % (auto) 0 % 08/09/25 00:39 Nucleated RBCs # 0.0 /100WBC 08/09/25 00:39 Sodium 135 mmol/L (136-145) L 08/09/25 00:39 Potassium 3.0 mmol/L (3.5-5.1) L 08/09/25 00:39 Chloride 100 mmol/L (98-107) 08/09/25 00:39 Carbon Dioxide 18 mmol/L (22-29) L 08/09/25 00:39 Anion Gap 20.0 (5-19) H 08/09/25 00:39 BUN 7 mg/dL (6-20) 08/09/25 00:39 Creatinine 0.5 mg/dL (0.5-0.9) 08/09/25 00:39 GFR Calculation 157.3 mL/min (90-130) H 08/09/25 00:39 Glucose 98 mg/dL (65-115) 08/09/25 00:39 Calculated Osmolality 278 mOsm/kg (285-295) L 08/09/25 00:39 Calcium 9.0 mg/dL (8.5-10.5) 08/09/25 00:39 Total Bilirubin 0.4 mg/dL (0.15-1.2) 08/09/25 00:39 AST 11 U/L (0-32) 08/09/25 00:39 ALT 7 U/L (0-33) 08/09/25 00:39 Alkaline Phosphatase 73 U/L (35-105) 08/09/25 00:39 Total Protein 6.4 g/dL (6.6-8.7) L 08/09/25 00:39 Albumin 4.0 g/dL (3.5-5.2) 08/09/25 00:39 Globulin 2.4 g/dL (1.3-4.6) 08/09/25 00:39 Ser , Semi-Qnt 05840.00 mIU/mL 08/09/25 00:39 All radiology interpretation(s) finalized by discharge Discharge Plan Discharge Patient Disposition: Home Clinical Impression: Incomplete miscarriage Condition: Stable Prescriptions: No Action acetaminophen [Tylenol] 325 mg tablet 325 mg PO QID PRN (Reason: Fever Or Pain) hydrocodone-acetaminophen 5-325 mg tablet 1 tab PO Q6H PRN (Reason: pain) Qty: 7 0RF fluoxetine 20 mg capsule 20 mg PO DAILY One-A-Day 400 mcg- 25 mg Tablet,Chewable 1 tab PO DAILY amoxicillin-pot clavulanate 875-125 mg tablet 1 tab PO Q12H Qty: 20 0RF Discharge Orders: Discharge ED (Routine); Ordered 08/09/25 Ordered By: Jozef Raphael Referrals: Jaron Lunsford MD [Physician, TERMINATION CLERK] - 1-3 days Meron Jones [Primary Care Provider, Family Practice] Discharge Diet: Usual diet Discharge Activity: Resume usual activity Patient Instructions: Miscarriage (ED), Opioid Safety, Pain Management, Patient Portal & Payam Instructions Activity Restrictions/Additional Instructions: - Follow-up with your doctor later today as scheduled. - Return to ED with further issues - Continue your antibiotics as prescribed Print Language: Latvian Coding Level of Care Code ED Logistics Assistant for Chg Fwd Documented by User: Jozef Raphael DO 08/09/25 04:55 HPI - General: Chief complaint: OB/Uterine Contractions Stated complaint: 13WKS BLEEDING IN PAIN Time Seen by Provider: 08/09/25 00:31 Related Data Home Medications ?Medication ?Instructions ?Recorded ?Confirmed fluoxetine 20 mg capsule 20 mg PO DAILY 06/05/25 08/09/25 vitamins no.167-folic 1 tab PO DAILY 06/20/25 08/09/25 acid 400 mcg-dha 25 mg chewable tablet (One-A-Day ) acetaminophen 325 mg tablet 325 mg PO QID PRN Fever Or Pain 07/28/25 08/09/25 (Tylenol) Previous Rx's ?Medication ?Instructions ?Recorded hydrocodone 5 mg-acetaminophen 325 1 tab PO Q6H PRN pain #7 tabs 08/06/25 mg tablet amoxicillin 875 mg-potassium 1 tab PO Q12H #20 tabs 08/07/25 clavulanate 125 mg tablet Allergies Allergy/AdvReac Type Severity Reaction Status Date / Time No Known Allergies Allergy Verified 08/09/25 15:55 PFS ED PFSH: Medical History No pertinent past medical history neghx: dvt/pe, thyroid, dm, htn PCP: [facility] Surgical History No pertinent past surgical history Family History Grandmother Colon cancer Social History Smoking and tobacco/nicotine status: never used tobacco/nicotine Course Vital Signs: Vital signs: Vital Signs Temperature 97.5 F L 08/09/25 00:31 Pulse Rate 84 08/09/25 03:39 Respiratory Rate 18 08/09/25 01:31 Blood Pressure 105/63 08/09/25 03:39 Pulse Oximetry 99 08/09/25 03:39 Oxygen Delivery Me thod Room Air 08/09/25 00:31 MDM - OB/Uterine Contractions Medical Decision Making Patient is a 19-year-old female with 13-week and spontaneous rupture of membranes. She has severe cramping, discharge from her vagina. Repeat ultrasound has been ordered. Patient was originally seen by Ms. Kezia PA-C. I agree with her history, evaluation, and initial management. The patient actually passed the fetus tissue in the toilet in the ER. It is reclaimed, placed in a placental box. Her pain is much improved. She is no longer nauseated. hCG is decreased from prior. She was counseled on need for follow-up. She has an OB follow-up later this morning. hCG will need to be followed for clinical completion of miscarriage. She will return for worsening pain, fever, vomiting, etc. She is stable for discharge currently. Her hemoglobin is stable. Lab Data 08/09/25 00:39 08/09/25 00:39 Radiology Impressions Pelvis Ultrasound 08/09/25 00:40 IMPRESSION: Findings represent ongoing . Laboratory Results WBC 7.24 10^3/uL (4.5-13.0) 08/09/25 00:39 RBC 4.36 10^6/uL (3.85-5.65) 08/09/25 00:39 Hgb 11.80 g/dL (12.4-14.8) L 08/09/25 00:39 Hct 34.0 % (36-47) L 08/09/25 00:39 MCV 78.0 fl (85-98) L 08/09/25 00:39 MCH 27.1 pg (27-33) 08/09/25 00:39 MCHC 34.7 g/dL (30-55) 08/09/25 00:39 RDW 13.8 % (12.1-15.1) 08/09/25 00:39 Plt Count 248 10^3/cmm (157-399) 08/09/25 00:39 MPV 10.3 fL (7.4-10.4) 08/09/25 00:39 Neut % (Auto) 79.4 % 08/09/25 00:39 Lymph % (Auto) 7.6 % 08/09/25 00:39 [place] % (Auto) 11.3 % 08/09/25 00:39 Eos % (Auto) 1.0 % 08/09/25 00:39 Baso % (Auto) 0.1 % 08/09/25 00:39 Neut # (Auto) 5.75 10^3/uL (1.8-8.0) 08/09/25 00:39 Lymph # (Auto) 0.6 10^3/uL (1.5-6.5) L 08/09/25 00:39 [place] # (Auto) 0.8 10^3/uL (0.2-0.9) 08/09/25 00:39 Eos # (Auto) 0.1 10^3/uL (0.0-0.8) 08/09/25 00:39 Baso # (Auto) 0.0 10^3/uL (0.0-0.1) 08/09/25 00:39 Nucleated RBC % (auto) 0 % 08/09/25 00:39 Nucleated RBCs # 0.0 /100WBC 08/09/25 00:39 Sodium 135 mmol/L (136-145) L 08/09/25 00:39 Potassium 3.0 mmol/L (3.5-5.1) L 08/09/25 00:39 Chloride 100 mmol/L (98-107) 08/09/25 00:39 Carbon Dioxide 18 mmol/L (22-29) L 08/09/25 00:39 Anion Gap 20.0 (5-19) H 08/09/25 00:39 BUN 7 mg/dL (6-20) 08/09/25 00:39 Creatinine 0.5 mg/dL (0.5-0.9) 08/09/25 00:39 GFR Calculation 157.3 mL/min (90-130) H 08/09/25 00:39 Glucose 98 mg/dL (65-115) 08/09/25 00:39 Calculated Osmolality 278 mOsm/kg (285-295) L 08/09/25 00:39 Calcium 9.0 mg/dL (8.5-10.5) 08/09/25 00:39 Total Bilirubin 0.4 mg/dL (0.15-1.2) 08/09/25 00:39 AST 11 U/L (0-32) 08/09/25 00:39 ALT 7 U/L (0-33) 08/09/25 00:39 Alkaline Phosphatase 73 U/L (35-105) 08/09/25 00:39 Total Protein 6.4 g/dL (6.6-8.7) L 08/09/25 00:39 Albumin 4.0 g/dL (3.5-5.2) 08/09/25 00:39 Globulin 2.4 g/dL (1.3-4.6) 08/09/25 00:39 Ser , Semi-Qnt 02120.00 mIU/mL 08/09/25 00:39 Discharge Plan Discharge Patient Disposition: Home Clinical Impression: Incomplete miscarriage Condition: Stable Prescriptions: No Action acetaminophen [Tylenol] 325 mg tablet 325 mg PO QID PRN (Reason: Fever Or Pain) hydrocodone-acetaminophen 5-325 mg tablet 1 tab PO Q6H PRN (Reason: pain) Qty: 7 0RF fluoxetine 20 mg capsule 20 mg PO DAILY One-A-Day 400 mcg- 25 mg Tablet,Chewable 1 tab PO DAILY amoxicillin-pot clavulanate 875-125 mg tablet 1 tab PO Q12H Qty: 20 0RF Discharge Orders: Discharge ED (Routine); Ordered 08/09/25 Ordered By: Jozef Raphael Referrals: Jaron Lunsford MD [Physician, TERMINATION CLERK] - 1-3 days Meron Jones [Primary Care Provider, Family Practice] Discharge Diet: Usual diet Discharge Activity: Resume usual activity Patient Instructions: Miscarriage (ED), Opioid Safety, Pain Management, Patient Portal & Payam Instructions Activity Restrictions/Additional Instructions: - Follow-up with your doctor later today as scheduled. - Return to ED with further issues - Continue your antibiotics as prescribed Print Language: Latvian Coding Level of Care Code ED Logistics Assistant for Padmini Ortiz
[2025-08-09 00:45] LABS: Hematocrit 34.0 % (36-47); Hemoglobin 11.80 g/dL (12.4-14.8); Mean Corpuscular HGB Conc 34.7 g/dL (30-55); Mean Corpuscular Hemoglobin 27.1 pg (27-33); Mean Corpuscular Volume 78.0 fl (85-98); Nucleated Red Blood Cells % 0 %; Platelet Count 248 10^3/cmm (157-399); Red Blood Count 4.36 10^6/uL (3.85-5.65); White Blood Count 7.24 10^3/uL (4.5-13.0)
[2025-08-09] MEDS: ondansetron 2 mg/ML SDV 2 mL 4 MG IVP (00:47)
[2025-08-09 00:56] VITALS: RESP 22; O2SAT 96
[2025-08-09] MEDS: morphine 4 mg/mL SDV 1 mL IVP ×2 (00:56→01:31)
[2025-08-09 01:07] LABS: Alanine Aminotransferase 7 U/L (0-33); Albumin Level 4.0 g/dL (3.5-5.2); Alkaline Phosphatase 73 U/L (35-105); Anion Gap 20.0 (5-19); Aspartate Amino Transferase 11 U/L (0-32); Blood Urea Nitrogen 7 mg/dL (6-20); Calcium 9.0 mg/dL (8.5-10.5); Carbon Dioxide 18 mmol/L (22-29); Chloride 100 mmol/L (98-107); Globulin 2.4 g/dL (1.3-4.6); Glucose 98 mg/dL (65-115); Osmolality Calculated 278 mOsm/kg (285-295); Potassium 3.0 mmol/L (3.5-5.1); Sodium 135 mmol/L (136-145); Total Protein 6.4 g/dL (6.6-8.7)
[2025-08-09 01:31] VITALS: RESP 18; O2SAT 96
--- NOTE | 2025-08-09 02:57 | PC.NURSE ---
MTS [facility]TS contacted for miscarriage. Referral made - pt is not a candidate. Ref # [id number]
--- NOTE | 2025-08-09 03:37 | PC.NURSE ---
Pt passed fetus into the toilet while urinating. Pt wished to take remains home. OB weighed and fingerprinted fetus. Remains sent home with pt per request. Documentation in pts chart.
[2025-08-09 03:39] VITALS: BP 105/63; PULSE 84; O2SAT 99
== END 2025-08-09 03:40 | disposition home or self-care (01) ==
PROVIDERS: Emergency Provider Physician Assistant; PCP Registered Nurse
DX: O03.4 Incomplete spontaneous abortion without complication (principal)
CPT/HCPCS: 76857; 80053; 84702; 85025; 96374; 96375; 99285; J1885; J2270; J2405

== ENCOUNTER → 2025-08-25 13:41 | Outpatient (BNVA) | payer OTHER, MEDICAID, SELFPAY | PROVIDERS: PCP Registered Nurse; Visit Provider Obstetrics & Gynecology | DX: Z09 Encounter for follow-up examination after completed treatment for conditions other than malignant neoplasm (principal); O03.9 Complete or unspecified spontaneous abortion without complication | CPT/HCPCS: 81025 ==